=== PATIENT | female | born 1990 | race Caucasian/White ===

== ENCOUNTER 2022-12-20 20:11 | Inpatient (IN) | payer OTHER, SELFPAY ==
--- OUTSIDE RECORDS SUMMARY | 2022-12-20 20:17 | XMS_ITS | Continuity of Care Document ---
Author Name Unknown Organization [facility] Primary [facility] [place] Address [address] [place] [address]- Care Team Providers Care Bander Hand Name Role Phone Opal Iglesias NP Primary Care Physician Encounter [facility] Date(s): 07/20/21 - 08/19/21 [facility] Care [place] [address] [place], [place] [address] Allergies, Adverse Reactions, Alerts No Known Allergies Immunizations Given and Recorded Vaccine Date Status Refusal Reason tetanus/diphtheria/pertussis, acel(Tdap) 06/24/17 Given tetanus/diphtheria/pertussis, acel(Tdap) 10/14/16 Given Not Given Vaccine Date Status Refusal Reason influenza virus vaccine, inactivated 04/24/20 Not Given Patient Refuses Problem List Condition Effective Dates Status Health Status Inform ant Alcoholism(Confirmed) Active Anemia(Confirmed) Active Asthma(Confirmed) Active Chronic low back pain(Confirmed) Active Chronic viral hepatitis C(Confirmed) Active Cocaine abuse(Confirmed) Active Substance induced mood disorder(Confirmed) Active CHRIS (generalized anxiety disorder)(Confirmed) Active Insomnia(Confirmed) Active Marijuana user(Confirmed) Active 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 Opioid use disorder(Confirmed) Active Opioid dependence in remission(Confirmed) Active Opioid dependence on agonist therapy(Confirmed) Active Post-traumatic stress disorder(Confirmed) Active MDD (major depressive disord er), recurrent episode, moderate(Confirmed) Active Tobacco use(Confirmed) Active Hepatitis C(Confirmed) Active Social History Social History Type Response Smoking Status Current every day ankush oker; Type: Cigarettes; Other: 1/2 PPD x 10 yrs; Tobacco use times per day: 10; entered on: 08/09/14 Sex
--- OUTSIDE RECORDS SUMMARY | 2022-12-20 20:17 | XMS_ITS | Continuity of Care Document ---
Author Name Unknown Organization [facility] Address [address] [place] [address]- Care Team Providers Care Gardener Name Role Phone Harris FARAH, Opal Mancini Primary Care Physician [phone] Encounter [facility] Date(s): 05/17/21 - 05/17/[address] [address]- Discharge Disposition: A-D/C Home Attending Physician: Paolo uJarez MD Admitting Physician: Paolo Juarez MD Referring Physician: Not on Staff, Referring MD Allergies, Adverse Reactions, Alerts Substance Reaction Severity Status NKA Active Immunizations Given and Recorded Vaccine Date Status Refusal Reason tetanus/diphtheria/pertussis, acel(Tdap) 06/24/17 Given tetanus/diphtheria/pertussis, acel(Tdap) 10/14/16 Given Not Given Vaccine Date Status Refusal Reason influenza virus vaccine, inactivated 04/24/20 Not Given Patient Refuses Medications levoFLOXacin 500 mg oral tablet 1 tablet = 500 mg, By Mouth, Every 24 hours, for 10 days, # 10 tablet, 0 Refills, Acute 05/27/21 11:20:00 EST, 05/17/21 11:20:00 EST, Tablet, [id number], Partial fill upon patient request if the prescription is for a schedule II opioid drug.,... Start Date: 05/17/21 Stop Date: 05/27/21 Status: Ordered Suboxone 4 mg-1 mg sublingual film 3 film, Sublingual, Daily, for 4 days, dissolve under the tongue, # 12 film, 0 Refills, Acute 05/21/21 11:38:00 EST, 05/17/21 11:38:00 EST, Film, [id number], Partial fill upon patient requestif the prescription is for a schedule II opioid arlene... Start Date: 05/17/21 Stop Date: 05/21/21 Status: Ordered Problem List Condition Effective Dates Status Health Status Inform ant Alcoholism(Confirmed) Active Asthma(Confirmed) Active Chronic viral hepatitis C(Confirmed) Active Cocaine abuse(Confirmed) Active Substance induced mood disorder(Confirmed) Active CHRIS (generalized anxiety disorder)(Confirmed) Active Marijuana user(Confirmed) Active 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 Opioid use disorder(Confirmed) Active Opioid dependence in remission(Confirmed) Active Opioid dependence on agonist therapy(Confirmed) Active Post-traumatic stress disorder(Confirmed) Active MDD (major depressive disord er), recurrent episode, moderate(Confirmed) Active Tobacco abuse(Confirmed) Active Tobacco use(Confirmed) Active Hepatitis C(Confirmed) Active Vital Signs Most recent to oldest [Reference Range]: 1 2 Height 163 cm (05/17/21 12:27 PM) 163 cm (05/17/21 10:13 AM) Weight 57.8 kg (05/17/21 12:27 PM) 57.8 kg (05/17/21 10:13 AM) Oxygen Saturation [94-100 %] 100 % (05/17/21 10:13 AM) Pulse Rate [55-90 bpm] 106 bpm *H* (05/17/21 10:13 AM) Blood Pressure [90-138/55-84 mm Hg] 116/ 69mm Hg (05/17/21 10:13 AM) Respiratory Rate [16-30 br/min] 20 br/mi n (05/17/21 10:13 AM) Temperature [96.8-100.4 DegF] 98.7 DegF (05/17/21 10:13 AM) Mode of Delivery (Oxygen) Room air (05/17/21 10:13 AM) Temperature Route Oral (05/17/21 10:13 AM) Dry Weight 57.8 kg (05/17/21 12:27 PM) 57.8 kg (05/17/21 10:13 AM) Weight Obtained Via Standing scale (05/17/21 10:13 AM) Social History Social History Type Response Smoking Status Current every day ankush gill; Type: Cigarettes; Other: 1/2 PPD x 10 yrs; Tobacco use times per day: 10; entered on: 08/09/14 Sex
--- OUTSIDE RECORDS SUMMARY | 2022-12-20 20:17 | XMS_ITS | Continuity of Care Document ---
Author Name Unknown Organization [facility] Primary Car e [place] Address [address] [place] [address]- Care Team Providers Care Metallurgical Laboratory Assistant Name Role Phone Karri Zhao Primary Care Physician Encounter [facility] NBR [id number] Date(s): 12/06/21 - 01/05/22 [facility] Care [place] [address] [place] [address]- Allergies, Adverse Reactions, Alerts No Known Allergies [...] Type Response Smoking Status Current every day sm oker; Type: Cigarettes; Other: 1/2 PPD x 10 yrs; Tobacco use times per day: 10; entered on: 08/09/14 Sex
--- OUTSIDE RECORDS SUMMARY | 2022-12-20 20:17 | XMS_ITS | Continuity of Care Document ---
Author Name Unknown Organization [facility] Address [address] [place] [address]- Care Team Providers Care Decaler Name Role Phone Harris FARAH, Opal Mancini Primary Care Physician [phone] Encounter [facility] Date(s): 10/17/20 - 10/24/[address] [address] Encounter Diagnosis Vision loss of left eye(Discharge Diagnosis) - 10/17/20 Redness of left eye(Discharge Diagnosis) - 10/17/20 Photophobia, left eye(Discharge Diagnosis) - 10/17/20 Left eye pain(Discharge Diagnosis) - 10/17/20 Attending Physician: Carri Alvares NP Admitting Physician: Carri Alvares NP Allergies, Adverse Reactions, Alerts Substance Reaction Severity Status NKA Active Immunizations Given and Recorded Vaccine Date Status Refusal Reason tetanus/diphtheria/pertussis, acel(Tdap) 06/24/17 Given tetanus/diphtheria/pertussis, acel(Tdap) 10/14/16 Given Not Given Vaccine Date Status Refusal Reason influenza virus vaccine, inactivated 04/24/20 Not Given Patient Refuses Medications ofloxacin 0.3% ophthalmic solution 2 drops, Eye, Left, 4 times a day, for 7 days, # 10 mL, 0 Refills, Acute 10/29/20 7:25:00 EDT, 10/22/20 7:25:00 EDT, [id number], Partial fill upon patient request if the prescription is for aschedule II opioid drug., 2 drops Eye, Left 4 times... Start Date: 10/22/20 Stop Date: 10/29/20 Status: Ordered Suboxone 12 mg-3 mg sublingual film 1 film, Sublingual, Daily, dissolve under the tongue, 0 Refills, Maintenance, 10/22/20 5:56:00 EDT,Film, Partial fill upon patient request if the prescription is for a schedule II opioid drug. Start Date: 10/22/20 Status: Ordered Zoloft 100 mg oral tablet 1 tablet = 100 mg, By Mouth, Daily, 0 Refills, Maintenance, 06/18/19 10:22:00 EST Start Date: 06/18/19 Status: Ordered Problem List Condition Effective Dates Status Health Status Inform ant Alcoholism(Confirmed) Active Asthma(Confirmed) Active Chronic viral hepatitis C(Confirmed) Active Cocaine abuse(Confirmed) Active CHRIS (generalized anxiety disorder)(Confirmed) Active Marijuana user(Confirmed) Active 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 Opioid dependence in remission(Confirmed) Active Opioid dependence on agonist therapy(Confirmed) Active Post-traumatic stress disorder(Confirmed) Active MDD (major depressive disord er), recurrent episode, moderate(Confirmed) Active Tobacco abuse(Confirmed) Active Tobacco use(Confirmed) Active Hepatitis C(Confirmed) Active Diagnosis Diagnosis Type Effective Dates Health Status Cl inical Service Informant Redness of left eye Discharge Diagnosis 10/17/20 Photophobia, left eye Discharge Diagnosis 10/17/20 Left eye pain Discharge Diagnosis 10/17/20 Vision loss of left eye Discharge Diagnosis 10/17/20 Social History Social History Type Response Smoking Status 5-9 cigarettes (betw een 1/4 to 1/2 pack)/day in last 30 days; Tobacco user in household: Yes;Never; Type: Cigarettes; Previous treatment: Nicotine replacement; Interested in cessation: Yes; Number of years: 18; Started at age: 12; entered on: 02/17/20 Sex
--- OUTSIDE RECORDS SUMMARY | 2022-12-20 20:17 | XMS_ITS | Continuity of Care Document ---
Author Name Unknown Organization [facility] Address [address] [place] [address]- Care Team Providers Care Matrix Drier Tender Name Role Phone Opal Iglesias NP Primary Care Physician Encounter [facility] Date(s): 02/11/20 - 03/12/20 [facility] [address] [place] [address]- [facility] Allergies, Adverse Reactions, Alerts Substance Reaction Severity Status NKA Active Immunizations Given and Recorded Vaccine Date Status Refusal Reason tetanus/diphtheria/pertussis, acel(Tdap) 06/24/17 Given tetanus/diphtheria/pertussis, acel(Tdap) 10/14/16 Given Medications Depo-Provera Contraceptive 150 mg/mL intramuscular suspension 1 mL = 150 mg, Intramuscular, Every 3 months, # 1 mL, 1 Refills, Maintenance, 05/31/19 12:31:00 EST, Suspension, [id number], 165, cm, 01/08/19 11:16:00 EDT, Height, 59, kg, 12/22/17 22:55:00 EDT, Dry Weight Start Date: 05/31/19 Status: Ordered Vivitrol Inj = 380 mg, Intramuscular, Every 28 days, 0 Refills, Maintenance, 06/18/19 10:23:00 EST Start Date: 06/18/19 Status: Ordered Zoloft 100 mg oral tablet [...]
--- OUTSIDE RECORDS SUMMARY | 2022-12-20 20:17 | XMS_ITS | Continuity of Care Document ---
Author Name Unknown Organization [facility] [place] Address [address] [place] [address]- Care Team Providers Care Manager Credit Risk Name Role Phone Harris FARAH, Opal Mancini Primary Care Physician [phone] Encounter [facility] NBR [id number] Date(s): 07/18/20 - 08/17/20 [facility] Care [place] [address] [place] [address]- Attending Physician: Angie Kerr Admitting Physician: Angie Kerr Referring Physician: AdmtrAngie Allergies, Adverse Reactions, Alerts Substance Reaction Severity Status NKA Active Immunizations Given and Recorded Vaccine Date Status Refusal Reason tetanus/diphtheria/pertussis, acel(Tdap) 06/24/17 Given tetanus/diphtheria/pertussis, acel(Tdap) 10/14/16 Given Not Given Vaccine Date Status Refusal Reason influenza virus vaccine, inactivated 04/24/20 Not Given Patient Refuses Medications Methadone = 40 mg, By Mouth, Daily, 0 Refills, Maintenance, 06/02/20 18:45:00 EST, Partial fill upon patient request if the prescription is for a schedule II opioid drug. Start Date: 06/02/20 Status: Ordered Zoloft 100 mg oral tablet [...]
--- OUTSIDE RECORDS SUMMARY | 2022-12-20 20:17 | XMS_ITS | Continuity of Care Document ---
Author Name Unknown Organization [facility] Primary [facility] [place] Address [address] [place] [address]- Care Team Providers Care Organic Lab Worker Name Role Phone Harris FARAH, Opal Mancini Primary Care Physician Encounter [facility] NBR [id number] Date(s): 08/17/21 - 11/15/21 [facility] [place] [address] [place], [place] [address] Attending Physician: Cyndee Garcia MD Allergies, Adverse Reactions, Alerts No Known Allergies [...]
--- OUTSIDE RECORDS SUMMARY | 2022-12-20 20:17 | XMS_ITS | Continuity of Care Document ---
Author Name Unknown Organization [facility] Address [address] [place] [address]- Care Team Providers Care Grounds Cleaner Name Role Phone Karri Zhao Primary Care Physician Encounter [facility] Date(s): 12/13/22 - 12/13/[address] [address]- Discharge Disposition: A-D/C Walkout Attending Physician: Amparo Briones MD Admitting Physician: Amparo Briones MD Referring Physician: Not on Staff, Referring MD Allergies, Adverse Reactions, Alerts No Known Allergies Immunizations Given and Recorded Vaccine Date Status Refusal Reason tetanus/diphtheria/pertussis, acel(Tdap) 06/24/17 Given tetanus/diphtheria/pertussis, acel(Tdap) 10/14/16 Given Not Given Vaccine Date Status Refusal Reason influenza virus vaccine, inactivated 04/24/20 Not Given Patient Refuses Medications Adderall 30 mg oral tablet 1 tablet = 30 mg, By Mouth, 2 times a day, # 6 tablet, 0 Refills, Maintenance, 06/28/22 17:07:00 EST, Tablet, [id number], Partial fill upon patient request if the prescription is fora schedule II opioid drug., 1 tablet By Mouth 2 sherly... Start Date: 06/28/22 Status: Ordered Problem List Condition Confirmation Course Effective Dates Status Health St atus Informant Anemia Confirmed Active Asthma Confirmed Active ADD (attention deficit disorder) Confirmed Active Chronic low back pain Confirmed Active Chronic viral hepatitis C Confirmed Active CHRIS (generalized anxiety disorder) Confirmed Active History of alcohol use disorder Confirmed Active History of substance use disorder 1 Confirmed Active Insomnia Confirmed Active Marijuana user Confirmed Active Post-traumatic stress disorder Confirmed Active MDD (major depressive disorder), recurrent episode, moderate Confirmed Active Tobacco use Confirmed Active 1cocaine and opiates in the past Vital Signs Most recent to oldest [Reference Range]: 1 2 Height 166 cm (12/13/22 12:21 PM) Weight 60.7 kg (12/13/22 12:21 PM) Oxygen Saturation [94-100 %] 100 % (12/13/22 12:21 PM) 99 % (12/13/22 12:20 PM) Pulse Rate [55-90 bpm] 70 bpm (12/13/22 12:21 PM) 109 bpm *H* (12/13/22 12:20 PM) Blood Pressure [90-138/55-84 mm Hg] 138/ 77mm Hg (12/13/22 12:21 PM) Respiratory Rate [16-30 br/min] 18 br/mi n (12/13/22 12:21 PM) 16 br/min (12/13/22 12:20 PM) Temperature [96.8-100.4 DegF] 98.4 DegF (12/13/22 12:21 PM) Mode of Delivery (Oxygen) Room air (12/13/22 12:21 PM) Room air (12/13/22 12:20 PM) Temperature Route Temporal (12/13/22 12:21 PM) Dry Weight 60.7 kg (12/13/22 12:21 PM) Social History Social History Type Response Tobacco Use: 4 or less cigar ettes(less than 1/4 pack)/day in last 30 days. Sex Patient Care team information Care Team Personnel Name: Miladis Redmond RN Position: [facility] RN Member Role: Primary Care Nurse Name: Karri Zhao Position: [facility] PCO Associate Professional Member Role: PCP Address: Address: [address] [place] [address] Name: Lilia To RN Position: [facility] RN Member Role: Primary Care Nurse Name: Sonia Bose [place] Position: [facility] RN Member Role: Primary Care Nurse Name: Mechelle Spencer Position: [facility] RN Member Role: Primary Care Nurse Name: Alethea Mayo RN Position: [facility] RN Member Role: Primary Care Nurse Name: Francoise Cadena RN Position: [facility] RN Member Role: Primary Care Nurse Name: Ana Garcia RN Position: [facility] RN Member Role: Primary Care Nurse Name: Betty Roman RN Position: [facility] AMB Nurse Member Role: Primary Care Nurse Name: Lisha Willett RN Position: [facility] RN Member Role: Primary Care Nurse Name: Sandra Sosa RN Position: [facility] RN Member Role: Primary Care Nurse Care Team Related Persons Name: SHONDAASTERN Address: home [address] [place] [address] Name: NABIL ALLEN Address: home [address] [place] [address] Name: SHIKHA HOLBROOK Address: [place] [address] Name: CLAUDE BLACK Address: Address: home [address] [place] [address] Name: AMADOR BLACK Address: home [address] [place] [address] Name: CECILIA NELSON Address: home [address] [place] [address] Name: NONE, GIVEN Address: [place] [address]
--- OUTSIDE RECORDS SUMMARY | 2022-12-20 20:17 | XMS_ITS | Continuity of Care Document ---
Author Name Unknown Organization [facility] Primary [facility] [place] Address [address] [place] [address]- Care Team Providers Care Dye Machine Operator Name Role Phone Opal Iglesias NP Primary Care Physician Encounter [facility] Date(s): 04/30/21 - 05/30/21 [facility] [place] [address] [place], [place] [address] Allergies, Adverse Reactions, Alerts Substance Reaction Severity [...]
--- OUTSIDE RECORDS SUMMARY | 2022-12-20 20:17 | XMS_ITS | Continuity of Care Document ---
Author Name Unknown Organization [facility] Hernan Guzman [employer] [facility] Address [address], [address] [place] [address]- Care Team Providers Care Floor Manager Name Role Phone Karri Zhao Primary Care Physician [phone] Encounter [facility] Date(s): 11/14/22 - 12/14/22 [facility]anmajo [employer] [facility] [address], [address] [place], [place] [address] Allergies, Adverse Reactions, Alerts No Known Allergies [...] 0 Refills, Maintenance, 06/28/22 17:07:00 EST, Tablet, [id number], Partial fill upon patient request if the [...] Active 1cocaine and opiates in the past Social History Social History Type Response Tobacco Use: 4 or less cigar ettes(less than 1/4 pack)/day in last 30 days. Sex Patient Care team information Care Team Personnel Name: Miladis Redmond RN Position: [facility] RN Member Role: Primary Care Nurse Name: Karri Zhao Position: [facility] PCO Associate Professional Member Role: PCP Address: Address: [address] [place] [address]- Name: Lilia To RN Position: [facility] RN Member Role: Primary Care Nurse Name: Sonia Bose [place] Position: [facility] RN Member Role: Primary Care Nurse Name: Mechelle Spencer Position: [facility] RN Member Role: Primary Care Nurse Name: Alethea Mayo RN Position: [facility] RN Member Role: Primary Care Nurse Name: Francoise Cadena RN Position: [facility] RN Member Role: Primary Care Nurse Name: Ana Garcia RN Position: [facility] RN Member Role: Primary Care Nurse Name: Betty Roman RN Position: [facility] AMB Nurse Member Role: Primary Care Nurse Name: Lisha Willett RN Position: [facility] RN Member Role: Primary Care Nurse Name: Sandra Sosa RN Position: [facility] RN Member Role: Primary Care Nurse Care Team Related Persons Name: NABIL MERCHANT Address: home [address], [place] Name: NABIL ALLEN Address: home [address], [place] Name: SHIKHA HOLBROOK Address: [place] [address] Name: CLAUDE BLACK Address: Address: home [address] [place] [id number] Name: AMADOR BLACK Address: home [address] [place] [address] Name: CECILIA NELSON Address: home [address] [place] [address] Name: NONE, [place] Address: [place] [address]
--- OUTSIDE RECORDS SUMMARY | 2022-12-20 20:17 | XMS_ITS | Continuity of Care Document ---
Author Name Unknown Organization [facility] Primary [place] Address [address] [place] [address]- Care Team Providers Care Galvanizer Name Role Phone Opal Iglesias NP Primary Care Physician Encounter [facility] Date(s): 07/11/21 - 08/10/21 [facility] [place] [address] [place], [place] [address] Allergies, Adverse Reactions, Alerts No Known Allergies Immunizations Given and Recorded Vaccine Date Status Refusal Reason tetanus/diphtheria/pertussis, acel(Tdap) 06/24/17 Given tetanus/diphtheria/pertussis, acel(Tdap) 10/14/16 Given Not Given Vaccine Date Status Refusal Reason influenza virus vaccine, inactivated 04/24/20 Not Given Patient Refuses Medications hydrOXYzine hydrochloride 50 mg oral tablet 1 tablet = 50 mg, By Mouth, 4 times a day, PRN for anxiety, # 40 tablet, 0 Refills, Maintenance, 07/24/21 15:02:00 EST, Tablet, Partial fill upon patient request if the prescription is for a scheduleII opioid drug. Start Date: 07/24/21 Status: Ordered Problem List Condition Effective Dates [...]
--- OUTSIDE RECORDS SUMMARY | 2022-12-20 20:17 | XMS_ITS | Continuity of Care Document ---
Author Name Unknown Organization [facility] Address [address] [place] [address]- Care Team Providers Care Poultry Husbandry Worker Name Role Phone Harris FARAH, Opal Mancini Primary Care Physician [phone] Encounter [facility] Date(s): 05/08/20 - 06/07/20 [facility] [address] [place] [address]- Attending Physician: Angie Kerr Admitting Physician: Angie [...]
--- OUTSIDE RECORDS SUMMARY | 2022-12-20 20:17 | XMS_ITS | Continuity of Care Document ---
Author Name Unknown Organization [facility] ter Address [address] [place] [id number]- Care Team Providers Care Overhead Door Technician Name Role Phone Harris FARAH, Opal Mancini Primary Care Physician Encounter [facility] [place] Date(s): 04/22/20 - 05/08/[address] [address] Discharge Disposition: A-D/C Home Attending Physician: Iman Richards MD Admitting Physician: Iman Richards MD Referring Physician: Not on Staff, Referring MD Allergies, Adverse Reactions, Alerts Substance Reaction Severity Status NKA Active Immunizations Given and Recorded Vaccine Date Status Refusal Reason tetanus/diphtheria/pertussis, acel(Tdap) 06/24/17 Given tetanus/diphtheria/pertussis, acel(Tdap) 10/14/16 Given Not Given Vaccine Date Status Refusal Reason influenza virus vaccine, inactivated 04/24/20 Not Given Patient Refuses Medications gabapentin 300 mg oral capsule 300 mg, Capsule, By Mouth, 05/08/20 9:00:00 EST Start Date: 05/08/20 Stop Date: 05/08/20 Status: Completed Methadone Liquid 10 mg, Solution, By Mouth, 05/08/20 9:00:00 EST Start Date: 05/08/20 Stop Date: 05/08/20 Status: Completed Tylenol 325 mg oral tablet 650 mg, Tablet, By Mouth, Every 4 hours, PRN for Pain , Moderate, Routine, 05/08/20 8:02:00 EST Start Date: 05/08/20 Stop Date: 05/08/20 Status: Discontinued Zoloft 100 mg oral tablet 1 tablet [...] Active Tobacco use(Confirmed) Active Hepatitis C(Confirmed) Active Results Radiology Reports * Exam Date Time Procedure Performing Provider Status 05/05/20 9:32 AM UGI, W/KUB Water Soluble Wilfredo , Di na; Auth (Verified) Notes: (UGI, W/KUB Water Soluble) Reason For Exam: Postop Gastric Surgery RESULT: UGI, W/KUB Water Soluble UGI, W/KUB Water Soluble INDICATION: Follow-up status post repair of gastric perforation with omental plug COMPARISON: Multiple priors, the most recent 05/02/2020 FLUOROSCOPY TIME: 0.7 Min Dose Area Product (DAP): 557.3 uGy*m2 TECHNIQUE: Aqueous contrast upper GI examination was performed by Kuldeep Friedman PA-C. Patient studied semiupright and recumbent after oral administration of 100 cc Isovue-300. FINDINGS: Esophagus: Not evaluated on today's focused exam. Stomach: Best appreciated on image 9, at least two punctate foci of contrast appear extraluminally along the proximal lesser curvature, which are significantly improved from the prior study. Otherwise normal contour motility and mucosal appearance with prompt emptying into nondilated duodenum. No gastric outlet obstruction. Duodenum: Normal contour, distensibility and mucosal appearance. No evidence of duodenal ulcer or scarring. The ligament of Treitz is in the normal location. IMPRESSION: Improvement in gastric perforation with only punctate foci of contrast appearing chest outside of the stomach margins on today's study. By undersigning and finalizing the report, the attending radiologist confirms he/she has personallyreviewed and interpreted the images and agrees with the description of the findings. I have personally reviewed the images and I agree with this report. WSN: [id number] Ordering Physician: Cesar White Dictated By: Bautista Jin Dictated Date/Time: 05/05/20 11:10 a Reviewed By: Servando Cisneros MD Signed By: Servando Cisneros MD Signed Date/Time: 05/05/20 11:15 am Transcribed By: ANTOLIN Transcribed Date/Time: 05/05/20 9:38 am * Exam Date Time Procedure Performing Provider Status 05/02/20 10:07 AM UGI, W/KUB Water Soluble Stacie Vang; Auth (Verified) Notes: (UGI, W/KUB Water Soluble) Reason For Exam: Follow-Up RESULT: UGI, W/KUB Water Soluble UGI, W/KUB Water Soluble INDICATION: Follow-up gastric perforation status post omental plug repair COMPARISON: Multiple priors. FLUOROSCOPY TIME: 1.1 Min Dose Area Product (DAP): 1676.7 uGy*m2 TECHNIQUE: Aqueous contrast upper GI examination was performed by Kuldeep Friedman PA-C. Patient drank approximately 100 cc of Isovue-300 and images were obtained semiupright and recumbent. FINDINGS: The previously seen NG tube is no longer present on today's exam. Esophagus: Visualized distal esophagus is normal in contour and mucosal appearance with prompt transit of liquid contrast into the stomach. No evidence of hiatal hernia. No esophageal obstruction. Stomach: Best appreciated on images 5, 6, and 8, a vertically oriented linear trace of contrast is seen measuring extending approximately 3 cm length along the lesser curvature of the proximal stomach body. This contained collection is significantly improved from the previous study. Lateral images 10 and 11 reveal an ovoid displacement of rugal folds consistent with status post omental plug repair. There is otherwise normal contour motility and mucosal appearance with prompt emptying into nondilated duodenum. No gastric outlet obstruction. Duodenum: Normal contour, distensibility and mucosal appearance. No evidence of duodenal ulcer or scarring. The ligament of Treitz is in the normal location. Note: Images 1-8 contain a speckling of extracorporal contrast present on the image intensifier, wiped clean beginning with image 9. IMPRESSION: 1 Significant improvement in contained gastric perforation with only a linear trace of extraluminalcontrast appearing on today's study. 2. Additional expected postoperative changes status post gastrotomy repair with omental plug. By undersigning and finalizing the report, the attending radiologist confirms he/she has personallyreviewed and interpreted the images and agrees with the description of the findings. I have personally reviewed the images and I agree with this report. WSN: [id number] Ordering Physician: Germania Selby Dictated By: Bautista Jin Dictated Date/Time: 05/02/20 10:54 a Reviewed By: Marija Umana MD Signed By: Marija Umana MD Signed Date/Time: 05/02/20 10:59 am Transcribed By: ANTOLIN Transcribed Date/Time: 05/02/20 10:29 am * Exam Date Time Procedure Performing Provider Status 04/28/20 9:25 AM Upper GI W/O KUB Tri Villalobos; Auth (Verified) Notes: (Upper GI W/O KUB) Reason For Exam: Postop Gastric Surgery RESULT: Upper GI W/O KUB Upper GI W/O KUB INDICATION: Status post repair of gastric perforation with contained leak seen on prior study; follow-up COMPARISON: Upper GI 04/24/2020 FLUOROSCOPY TIME: 1.3 Min Dose Area Product (DAP): 640.4 uGy*m2 TECHNIQUE: Aqueous contrast upper GI examination was performed by Kuldeep Friedman PA-C. Approximately 150 cc of Isovue-300 was administered via the patient's NG tube and images obtained recumbently. FINDINGS: Preschool Substitute Teacher: NG tube is seen with distal tip terminating in the gastric body. Staple closures seen. An ovoid focus of air measuring approximately 1 x 2 cm in transverse and cephalocaudal dimension is seen in the area of previously described contained collection. Contrast material is noted in the left and transverse colon. Esophagus: Not evaluated on today's films exam. Stomach: Again seen is extraluminal contrast opacifying a vertically oriented ovoid collection arising from the proximal stomach body along the lesser curvature, which measures roughly 4 x 0.8 cm andhas decreased in size from the previous exam. There is otherwise normal contour motility and mucosal appearance with prompt emptying into nondilated duodenum. No gastric outlet obstruction. Duodenum: Normal contour, distensibility and mucosal appearance. No evidence of duodenal ulcer or scarring. The ligament of Treitz is in the normal location. IMPRESSION: Interim decrease in size of contained gastric perforation. Note: Two-way communication of these findings was made via Cortext with the ordering physician Dr. White, prior to dictation of this report. By undersigning and finalizing the report, the attending radiologist confirms he/she has personallyreviewed and interpreted the images and agrees with the description of the findings. I have personally reviewed the images and I agree with this report. WSN: [id number] Ordering Physician: Cesar White Dictated By: Bautista Jin Dictated Date/Time: 04/28/20 10:47 a Reviewed By: Marija Umana MD Signed By: Marija Umana MD Signed Date/Time: 04/28/20 10:52 am Transcribed By: ANTOLIN Transcribed Date/Time: 04/28/20 9:37 am * Exam Date Time Procedure Performing Provider Status 04/24/20 8:43 PM Chest 2 Views Frontal and Lat Sharon Nicholas; Auth (Verified) Notes: (Chest 2 Views Frontal and Lat) Reason For Exam: Cough RESULT: Chest 2 Views Frontal and Lat Chest 2 Views Frontal and Lat Reason: Cough; Clinical Question(s): Pneumonia COMPARISON: 04/22/2020 FINDINGS: LINES AND TUBES: Enteric tube in good position. Central venous catheter tip in the right atrium. LUNGS AND PLEURA: Small right pleural effusion. Left lung is clear. No pneumothorax. HEART, MEDIASTINUM AND GELA: Heart is normal in size. Normal mediastinal and hilar contour. BONES AND SOFT TISSUES: No acute abnormality. IMPRESSION: Small right pleural effusion. WSN: [id number] Ordering Physician: Germania Selby Dictated By: Salvador Tate MD Dictated Date/Time: 04/24/20 9:28 pm Reviewed By: Salvador Tate MD Signed By: Salvador Tate MD Signed Date/Time: 04/24/20 9:28 pm Transcribed By: ANTOLIN Transcribed Date/Time: 04/24/20 9:26 pm * Exam Date Time Procedure Performing Provider Status 04/24/20 9:51 AM UGI, W/KUB Water Soluble Barbie Recinos; Auth (Verified) Notes: (UGI, W/KUB Water Soluble) Reason For Exam: Postop Gastric Surgery RESULT: UGI, W/KUB Water Soluble UGI, W/KUB Water Soluble INDICATION: Status post repair gastric perforation; Rule out leak COMPARISON: None FLUOROSCOPY TIME: 2.2 Min Dose Area Product (DAP): 885.6 uGy*m2 TECHNIQUE: Aqueous contrast upper GI examination was performed by Kuldeep Friedman PA-C. Approximately 200 cc of Isovue-300 was administered via the patient's NG tube and images obtained recumbently. FINDINGS: NG tube is in place with distal tip terminating in the body. Esophagus: Not evaluated on today's focused exam. Stomach: Extraluminal contrast is seen arising from the proximal stomach body along the lesser curvature to opacify a vertically oriented collection measuring approximately 5 cm in length by 1 cm in width. No free intra-abdominal spillage of contrast is seen. There is otherwise normal contour motility and mucosal appearance with prompt emptying into nondilated duodenum. No gastric outlet obstruction. Duodenum: Normal contour, distensibility and mucosal appearance. No evidence of duodenal ulcer or scarring. The ligament of Treitz is in the normal location. IMPRESSION: Moderate contained gastric perforation without free intra-abdominal spillage. Note: Two-way communication of these findings was made via cortext with the ordering physician Dr. White, prior to dictation of this report. By undersigning and finalizing the report, the attending radiologist confirms he/she has personallyreviewed and interpreted the images and agrees with the description of the findings. I have personally reviewed the images and I agree with this report. WSN: [id number] Ordering Physician: Cesar White Dictated By: Bautista Jin Dictated Date/Time: 04/24/20 11:02 a Reviewed By: Benjamin Fleming MD Signed By: Benjamin Fleming MD Signed Date/Time: 04/24/20 11:07 am Transcribed By: ANTOLIN Transcribed Date/Time: 04/24/20 10:01 am Vital Signs Most recent to oldest [Reference Range]: 1 2 3 4 Height 163 cm (05/07/20 4:21 PM) 163 cm (05/07/20 9:12 AM) 163 cm (05/05/20 12:03 PM) Weight 48.8 kg (05/06/20 6:24 AM) 43.45 kg (05/02/20 6:20 AM) 51.4 kg (04/28/20 6:42 AM) Oxygen Saturation [94-100 %] 98 % (05/08/20 12:00 PM) 99 % (05/07/20 8:00 PM) 100 % (05/07/20 4:21 PM) Pulse Rate [55-90 bpm] 77 bpm (05/08/20 12:00 PM) 88 bpm (05/07/20 8:00 PM) 81 bpm (05/07/20 4:21 PM) Body Mass Index [18.5-24.99] 18.07 *L* (04/23/20 5:53 AM) Blood Pressure [90-138/55-84 mm Hg] 98/53mm Hg (05/08/20 12:00 PM) 95/46mm Hg (05/07/20 8:00 PM) 133/84mm Hg (05/07/20 4:21 PM) Respiratory Rate [16-30 br/min] 18 br/min (05/08/20 12:00 PM) 18 br/min (05/08/20 9:12 AM) 18 br/min (05/08/20 9:12 AM) 18 br/min (05/08/20 9:12 AM) Temperature [96.8-100.4 DegF] 98.0 DegF (05/08/20 12:00 PM) 97.8 DegF (05/07/20 8:00 PM) 97.7 DegF (05/07/20 4:21 PM) Liters per Minute 4 L/min (04/23/20 3:15 AM) 6 L/min (04/23/20 3:00 AM) 6 L/min (04/23/20 2:30 AM) Mode of Delivery (Oxygen) Room air (05/08/20 12:00 PM) Room air (05/07/20 8:00 PM) Room air (05/07/20 4:21 PM) Blood pressure sites Arm, left (05/08/20 12:00 PM) Arm, left (05/07/20 8:00 PM) Arm, left (05/07/20 4:21 PM) Temperature Route Oral (05/08/20 12:00 PM) Oral (05/07/20 8:00 PM) Oral (05/07/20 4:21 PM) Dry Weight 48 kg (04/23/20 5:53 AM) Weight Obtained Via Bed scale (05/06/20 6:24 AM) Bed scale (04/28/20 6:42 AM) Social History Social History Type Response Smoking Status 5-9 cigarettes (betw een 1/4 to 1/2 pack)/day in last 30 days; Tobacco user in household: Yes;Never; Type: Cigarettes; Previous treatment: Nicotine replacement; Interested in cessation: Yes; Number of years: 17; Started at age: 12; entered on: 02/17/20 Sex
--- OUTSIDE RECORDS SUMMARY | 2022-12-20 20:17 | XMS_ITS | Continuity of Care Document ---
Author Name Unknown Organization [facility] Address [address] [place] [address]- Care Team Providers Care Engineering Inspector Name Role Phone Harris FARAH, Opal Mancini Primary Care Physician Encounter [facility] [id number] Date(s): 05/08/20 - 11/06/[address] [address]- Discharge Disposition: A-D/C Home Attending Physician: Iman Richards MD Admitting Physician: Iman Richards MD Referring Physician: Opal Iglesias NP Allergies, Adverse Reactions, Alerts Substance Reaction Severity Status NKA Active Immunizations Given and Recorded Vaccine Date Status Refusal Reason tetanus/diphtheria/pertussis, acel(Tdap) 06/24/17 Given tetanus/diphtheria/pertussis, acel(Tdap) 10/14/16 Given Not Given Vaccine Date Status Refusal Reason influenza virus vaccine, inactivated 04/24/20 Not Given Patient Refuses Medications Suboxone 12 mg-3 mg sublingual film 1 [...]
--- OUTSIDE RECORDS SUMMARY | 2022-12-20 20:17 | XMS_ITS | Continuity of Care Document ---
Author Name Unknown Organization [facility] Address [address] [place] [address]- Care Team Providers Care Loader Engineer Name Role Phone Karri Zhao Primary Care Physician Encounter [facility] Date(s): 06/27/22 - 06/27/[address] [address]- Discharge Disposition: A-D/C Home Attending Physician: Fabienne Ruelas MD Admitting Physician: Fabienne Ruelas MD Referring Physician: Not on Staff, Referring MD Allergies, Adverse Reactions, Alerts No Known Allergies Immunizations Given and Recorded Vaccine Date Status Refusal Reason tetanus/diphtheria/pertussis, acel(Tdap) 06/24/17 Given tetanus/diphtheria/pertussis, acel(Tdap) 10/14/16 Given Not Given Vaccine Date Status Refusal Reason influenza virus vaccine, inactivated 04/24/20 Not Given Patient Refuses Medications Adderall 20 mg oral tablet 2 tablet = 40 mg, By Mouth, Daily in AM, 0 Refills, Maintenance, 01/14/22 14:58:00 EDT, Partial fill upon patient request if the prescription is for a schedule II opioid drug. Start Date: 01/14/22 Status: Ordered Albuterol (Eqv-ProAir HFA) 90 mcg/inh inhalation aerosol 2 puffs, Inhalation, Every 6 hours, # 8.5 Gm, 0 Refills, Maintenance, 03/12/22 13:40:00 EDT, [facility]/pharmacy #[id number], Partial fill upon patient request if the prescription is for a schedule II opioid drug., 2 puffs Inhalation Every 6 hours, 164, cm, ... Start Date: 03/12/22 Status: Ordered baclofen 5 mg oral tablet 1 tablet = 5 mg, By Mouth, 3 times a day, # 90 tablet, 2 Refills, Maintenance, 08/16/21 14:42:00 EDT, Tablet, [id number], Partial fill upon patient request if the prescription is for a schedule II opioid drug., 165, cm, 08/16/21 14:15:00 EDT,... Start Date: 08/16/21 Status: Ordered gabapentin 800 mg oral tablet 1 tablet, By Mouth, 3 times a day, masspat checked, # 270 tablet, 0 Refills, 02/06/22 14:15:00 EDT,[id number], 164, cm, 01/14/22 14:53:00 EDT, Height, 65, kg, 01/14/22 14:53:00 EDT, Dry Weight Start Date: 02/06/22 Status: Ordered hydrOXYzine hydrochloride 50 mg oral tablet 1 tablet = 50 mg, By Mouth, 4 times a day, PRN for anxiety, # 120 tablet, 2 Refills, Maintenance, 08/16/21 14:43:00 EDT, Tablet, [id number], Partial fill upon patient request if the prescription is for a schedule II opioid drug., 165, cm, 2... Start Date: 08/16/21 Status: Ordered ibuprofen 600 mg oral tablet 600 mg, 1, tablet, By Mouth, 4 times a day, # 120 tablet, Refills 1, Tot. Refills 1, Maintenance, 12/07/21 12:47:00 EDT, Route to Pharmacy Electronically, [id number], Partial fill upon patient request if the prescription is for a schedule II o... Start Date: 12/07/21 Status: Ordered melatonin 5 mg oral tablet 1 tablet = 5 mg, By Mouth, Daily at bedtime, PRN for insomnia, # 60 tablet, 1 Refills, Maintenance,08/16/21 14:44:00 EDT, Tablet, [id number], Partial fill upon patient request if the prescription is for a schedule II opioid drug., 165, cm, 03... Start Date: 08/16/21 Status: Ordered sertraline 100 mg oral tablet 1.5 tablet = 150 mg, By Mouth, Daily, ov 08-16-21, # 135 tablet, 1 Refills, Maintenance, 07/09/21 14:23:00 EST, Tablet, [facility]/pharmacy #[id number], Partial fill upon patient request if the prescription is fora schedule II opioid drug., 163, cm, 05/17/21 12:27... Start Date: 07/09/21 Stop Date: 01/05/22 Status: Ordered Suboxone 8 mg-2 mg sublingual film 0 Refills, Maintenance, 04/17/21 9:13:00 EST, Partial fill upon patient request if the prescriptionis for a schedule II opioid drug. 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 Opioid dependence in remission Confirmed Active Post-traumatic stress disorder Confirmed Active MDD (major depressive disorder), recurrent episode, moderate Confirmed Active Tobacco use Confirmed Active Hepatitis C Confirmed Active Vital Signs Most recent to oldest [Reference Range]: 1 Height 163 cm (06/27/22 9:27 PM) Weight 64.5 kg (06/27/22 9:27 PM) Oxygen Saturation [94-100 %] 98 % (06/27/22 9:27 PM) Pulse Rate [55-90 bpm] 60 bpm (06/27/22 9:27 PM) Blood Pressure [90-138/55-84 mm Hg] 143/ 76mm Hg *H* (06/27/22 9:27 PM) Respiratory Rate [16-30 br/min] 20 br/mi n (06/27/22 9:27 PM) Mode of Delivery (Oxygen) Room air (06/27/22 9:27 PM) Temperature Route Temporal (06/27/22 9:27 PM) Dry Weight 64.5 kg (06/27/22 9:27 PM) Weight Obtained Via Patient/family state d (06/27/22 9:27 PM) Dry Weight Obtained Via Patient/family s tated (06/27/22 9:27 PM) Social History Social History Type Response Smoking Status Current every day sm oker; Type: Cigarettes; Other: 1/2 PPD x 10 yrs; Tobacco use times per day: 10; entered on: 08/09/14 Sex Note * Remigio Palafox: PERFORM Event Display: Patient Education Leaflets Authored Date: [id number] Anxiety??Reaction ?? [id number] Anxiety??Reaction Anxiety is the feeling we all get when we think something bad might happen. It is a normal responseto stress. It most often causes only a mild reaction. But it can interfere with daily life when anxiety is more severe. In some cases, you may not know what you???re anxious about. Anxiety seems to have both mental and physical triggers. You may have stress from home and family. Or work and social relationships. Anxiety tends to run in families. This may mean it???s linked to genes. During an anxiety reaction, you may feel: ??? Helpless ??? Nervous ??? Depressed ??? Grouchy Your body may show signs of anxiety in many ways. You may have: ??? Dry mouth ??? Shakiness ??? Dizziness ??? Weakness ??? Trouble breathing ??? Fast breathing ???Chest pressure ??? Sweating ??? Headache ??? Nausea ??? Diarrhea ??? Tiredness ??? Inability to sleep ??? Sexual problems Home care Try to find those things that set off anxiety in your life. They may not be obvious. They may include: ??? Daily hassles of life. This can include traffic jams, missed appointments, or car troubles. ???Major life changes. This means both good changes, such as a new baby or job promotion. This can also mean tough life changes, such as loss of a job or loss of a loved one. ??? Overload. This means feeling that you have too many responsibilities. And that you can't take care of all of them. ??? Feeling helpless. You may feel you don???t have any control or choices. You may feel that your problems can't be solved. Notice how your body reacts to stress. This will help you take action before the stress sets off anxiety. When you can, make changes to reduce the sources of your stress. But stress in life often can't be prevented. It is important to learn how to manage stress to reduce anxiety. There are many proven methods that will reduce your anxiety. These include: ??? Exercise ??? Good nutrition ??? Getting enough sleep ??? Relaxation methods ??? Breathing exercises ??? Visualization ??? Biofeedback ??? Meditation ??? Counseling ??? Medicine For more information about this, talk with your healthcare provider. Or check online or at your local library or bookstore. You'll find many books and audiobooks on this subject. ?? Follow-up care If you feel your anxiety is not getting better with self-help, call your healthcare provider. Or make an appointment with a counselor. You may need short-term counseling or medicine to help you manage anxiety. ?? Call 911 Call 911 if any of the following occur: ??? Trouble breathing ??? Confusion ??? Drowsiness or trouble waking up ??? Fainting ??? Rapid heart rate ??? Seizure ??? New chest pain that becomes more severe, lasts longer, or spreads into your shoulder, arm, neck, jaw, or back Call or text [phone] if you have thoughts of harming yourself or others. You will be connected to trained crisis counselors at the National Suicide Prevention Lifeline. An online chat option is also available at www.suicidepreChibwe.org. You can also call Lifeline at 512-850-NAMP (440-028-5222). Lifeline is free and available 16/12. ?? When to get medical advice Call your healthcare provider right away if any of the following occur: ??? Symptoms that don't improve or get worse, such as feelings of hopelessness or overwhelming sadness ??? Severe headache not eased by rest and mild pain medicine The National Suicide Prevention Lifeline is available at 806-349-RIQS (307-808-5123). The Lifeline is available 16/12 and provides free and confidential support. The Lifeline also has an online chat at www.suicideFlagr.org. ?? Last Reviewed Date: 2021 ?? The [employer]. All rights reserved. This information is not intended as a substitute for professional medical care. Always follow your healthcare professional's instructions. ?? * Remigio Palafox: PERFORM Event Display: Patient Education Leaflets Authored Date: [id number] Naltrexone Injection ?? [id number] Naltrexone Injection Brands: Vivitrol Uses This medicine is used for the following purposes: ??? drug addiction ??? alcohol dependence ?? Instructions This medicine will be given to you at the doctor's office. This medicine is given as an injection into a muscle. This medicine should only be used by a person who has been trained to recognize when and how it should be used. Drug interactions can change how medicines work or increase risk for side effects. Tell your healthcare providers about all medicines taken. Include prescription and [id number] medicines, vitamins, and herbal medicines. Speak with your doctor or pharmacist before starting or stopping any medicine. Keep all appointments for medical exams and tests while on this medicine. ?? Cautions Rarely, this medicine may cause serious injury at the site of injection. Call your doctor right away if you notice any pain, swelling, blisters, sores, lumps under the skin, or scabbing at the injection site. This medicine is associated with a rare, but serious problem of the liver. Speak to your doctor about the early signs of liver problems and the benefits and risks of using this medicine. You may become more sensitive to effects of opioid medicines during or after using this medicine. This can increase risk of serious or fatal overdose. Your ability to stay alert or to react quickly may be impaired by this medicine. Do not drive or operate machinery until you know how this medicine will affect you. Do not drink beverages with alcohol while on this medicine. If possible, avoid using with marijuana or other medicines that can cause dizziness or drowsiness. These include allergy/cold products, muscle relaxers, sleep aids, and pain relievers. Tell the doctor or pharmacist if you are , planning to be , or . Do not breastfeed while on this medicine. This medicine can pass through breast milk to the baby. Contact your doctor immediately if you experience any swelling of your hands, face, lips, eyes, throat or tongue. Always carry an ID card or wear a medical alert bracelet indicating your medical condition. Some patients have serious side effects from this medicine. Ask your pharmacist to show you the information from the Food and Drug Administration (FDA) and discuss it with you. ?? Side Effects The following is a list of some common side effects from this medicine. Please speak with your doctor about what you should do if you experience these or other side effects. ??? agitated feeling or trouble sleeping ??? decreased appetite ??? dizziness or drowsiness ??? lack of energy and tiredness ??? headaches ??? pain, redness, swelling near injection ??? joint or muscle pain ??? nausea ??? runny nose ??? stomach upset or abdominal pain Call your doctor or get medical help right away if you notice any of these more serious side effects: ??? severe abdominal or pelvic pain ??? severe allergic reaction ??? chest pain ??? confusion ??? diarrhea ??? hallucinations (unusual thoughts, seeing or hearing things that are not real) ??? severeor persistent headache ??? signs of liver damage (such as yellowing of eye or skin, dark urine, or unusual tiredness) ??? nervousness ??? shakiness ??? shortness of breath ??? light colored stool ???severe or persistent vomiting A few people may have an allergic reaction to this medicine. Symptoms can include difficulty breathing, skin rash, itching, swelling, or severe dizziness. If you notice any of these symptoms, seek medical help quickly. ?? Extra Please speak with your doctor, nurse, or pharmacist if you have any questions about this medicine. ?? https://Liftopia.Factabase/[email or web address]/fdbpem/897 IMPORTANT NOTE: This document tells you briefly how to take your medicine, but it does not tell youall there is to know about it. Your doctor or pharmacist may give you other documents about your medicine. Please talk to them if you have any questions. Always follow their advice. There is a more complete description of this medicine available in [place]. Scan this code on your smartphone or tablet or use the web address below. You can also ask your pharmacist for a printout. If you have any questions, please ask your pharmacist. The display and use of this drug information is subject to Terms of Use. Copyright(c) 2021 [employer]. ?? The [employer]. All rights reserved. This information is not intended as a substitute for professional medical care. Always follow your healthcare professional's instructions. ?? Patient Care team information Care Team Personnel Name: Miladis Redmond RN Position: S RN Member Role: Primary Care Nurse Name: Karri Zhao Position: [facility] PCO Associate Professional Member Role: PCP Address: Address: [address] [place] [address] [place] [address]- [place] Name: Lilia To RN Position: [facility] RN Member Role: Primary Care Nurse Name: Sonia Guo Position: [facility] RN Member Role: Primary Care Nurse Name: Mechelle Spencer Position: [facility] RN Member Role: Primary Care Nurse Name: Alethea Mayo RN Position: [facility] RN Member Role: Primary Care Nurse Name: Francoise Cadena RN Position: [facility] RN Member Role: Primary Care Nurse Name: Ana Garcia RN Position: [facility] RN Member Role: Primary Care Nurse Name: Betty Roman RN Position: [facility] AMB Nurse Member Role: Primary Care Nurse Name: Lisha Willett RN Position: [facility] RN Member Role: Primary Care Nurse Name: Sandra Sosa RN Position: [facility] RN Member Role: Primary Care Nurse Name: Remigio Palafox Position: [facility] Associate Professional Member Role: ED Physician Ang[place]mith Address: Address: [address] [place] [address] [place] [address]- [place] Name: Mechelle Hayden Position: [facility] ED OA Member Role: Assignment Clerk Name: Maryann Nunez Position: [facility] ED RN W/OE and Tasks Member Role: Patient Care Provider Name: Fabienne Ruelas MD Position: [facility] ED Medicine MD Member Role: Admitting Physician Address: Address: [address] [place] [address] [place], [place] - Care Team Related Persons Name: NABIL MERCHANT Address: home [address] [place] [address] Name: NABIL ALLEN Address: home [address], [place] Name: SHIKHA HOLBROOK Address: [place] [address] Name: CLAUDE BLACK Address: [address] Address: home [address] [place] [id number] Name: AMADOR BLACK Address: home [address], [place] Name: CECILIA NELSON Address: home [address] [place], [place] Name: NONE, [place] Address: [place] [address]
--- OUTSIDE RECORDS SUMMARY | 2022-12-20 20:17 | XMS_ITS | Continuity of Care Document ---
Author Name Unknown Organization [facility] Address [address] [place] [address]- Care Team Providers Care Workers Compensation Claims Examiner Name Role Phone Karri Zhao Primary Care Physician [phone] Encounter [facility] Date(s): 02/05/22 - 03/07/22 [facility] [address] [place], [place] [address] Allergies, Adverse Reactions, Alerts No Known Allergies Immunizations Given and Recorded Vaccine Date Status Refusal Reason tetanus/diphtheria/pertussis, acel(Tdap) 06/24/17 Given tetanus/diphtheria/pertussis, acel(Tdap) 10/14/16 Given Not Given Vaccine Date Status Refusal Reason influenza virus vaccine, inactivated 04/24/20 Not Given Patient Refuses Medications Adderall 20 mg oral tablet 1 tablet = 20 mg, By Mouth, Daily in AM, 0 Refills, Maintenance, 01/14/22 14:58:00 EDT, Partial fill upon patient request if the prescription is for a schedule II opioid drug. Start Date: 01/14/22 Status: Ordered baclofen 5 mg oral tablet 1 tablet = 5 mg, By Mouth, 3 times a day, # 90 tablet, 2 Refills, Maintenance, 08/16/21 14:42:00 EDT, Tablet, [facility]/pharmacy #[id number], Partial fill upon patient request if the prescription is for a schedule II opioid drug., 165, cm, 08/16/21 14:15:00 EDT,... Start Date: 08/16/21 Status: Ordered cloNIDine 0.1 mg oral tablet 1, tablet, By Mouth, 3 times a day, PRN, # 270 tablet, Refills 1, Tot. Refills 1, Maintenance, NEEDED FOR ANXIETY, 07/10/21 15:31:00 EST, Route to Pharmacy Electronically, [id number], 163,cm, 05/17/21 12:27:00 EST, Height, 57.8, kg, ... Start Date: 07/10/21 Status: Ordered gabapentin 800 mg oral tablet [...] 2 Refills, Maintenance, 08/16/21 14:43:00 EDT, Tablet, [facility]/pharmacy #[id number], Partial fill upon patient request if the prescription is for a schedule II opioid drug., 165, cm, 2... Start Date: 08/16/21 Status: Ordered ibuprofen 600 mg oral tablet 600 mg, 1, tablet, By Mouth, 4 times a day, # 120 tablet, Refills 1, Tot. Refills 1, Maintenance, 12/07/21 12:47:00 EDT, Route to Pharmacy Electronically, [facility]/pharmacy #[id number], Partial fill upon patient request if [...] cm, 03... Start Date: 08/16/21 Status: Ordered nicotine 21 mg/24 hr transdermal film, extended release 1 patch, Topically, Daily, # 30 patch, 1 Refills, Maintenance, 08/27/21 9:56:00 EDT, Patch, [id number], Partial fill upon patient request if the prescription is for a schedule II opioid drug., 1 patch Topically Daily, 165, cm, 08/16/21 14:15:0... Start Date: 08/27/21 Status: Ordered olanzapine 5 mg oral tablet 5 mg, 1, tablet, By Mouth, Daily, # 30 tablet, Refills 0, Tot. Refills 0, Maintenance, 08/28/21 17:31:00 EDT, Route to Pharmacy Electronically, [facility]/pharmacy #[id number], Partial fill upon patient request if the prescription is for a schedule II opioid drug.... Start Date: 08/28/21 Status: Ordered sertraline 100 mg oral tablet 1 tablet = 100 mg, By Mouth, Daily, ov 08-16-21, # 90 tablet, 1 Refills, Maintenance, 07/09/21 14:23:00 EST, Tablet, [facility]/pharmacy #[id number], Partial fill upon patient request if the prescription is for a schedule II opioid drug., 163, cm, 05/17/21 12:27:00... Start Date: 07/09/21 Stop Date: 01/05/22 Status: [...] C Confirmed Active Cocaine abuse Confirmed Active Substance induced mood disorder Confirmed Active CHRIS (generalized anxiety disorder) Confirmed Active Insomnia Confirmed Active Marijuana user Confirmed Active Substance abuse in remission Confirmed Active Opioid use disorder Confirmed Active Opioid dependence in remission Confirmed Active Opioid dependence on agonist therapy Confirmed Active Post-traumatic stress disorder Confirmed Active MDD (major depressive disorder), recurrent episode, moderate Confirmed Active Tobacco use Confirmed Active Hepatitis C Confirmed Active Social History Social History Type Response Smoking Status Current every day ankush gill; Type: Cigarettes; Other: 1/2 PPD x 10 yrs; Tobacco use times per day: 10; entered on: 08/09/14 Sex Patient Care team information Personnel Name: Karri Zhao Address: Address: [address] [place] [address] [place], [place] [address]
--- OUTSIDE RECORDS SUMMARY | 2022-12-20 20:17 | XMS_ITS | Continuity of Care Document ---
Author Name Unknown Organization [facility] Address [address] [place] [address]- Care Team Providers Care Coding Clerks Supervisor Name Role Phone Harris FARAH, Opal Mancini Primary Care Physician [phone] Encounter [facility] Date(s): 06/18/21 - 07/18/21 [facility] [place] [address] [place], [place] [address] Allergies, Adverse Reactions, Alerts No [...]
--- OUTSIDE RECORDS SUMMARY | 2022-12-20 20:17 | XMS_ITS | Continuity of Care Document ---
Author Name Unknown Organization [facility] Address [address] [place] [address]- Care Team Providers Care Land Surveying Manager Name Role Phone Opal Iglesias NP Primary Care Physician [phone] Encounter [facility] Date(s): 01/14/21 - 01/14/[address] [address]- Discharge Disposition: A-D/C AMA Attending Physician: Gil Guidry DO Admitting Physician: Gil Guidry DO Referring Physician: Not on Staff, Referring MD Allergies, Adverse Reactions, Alerts Substance Reaction Severity Status NKA Active Immunizations Given and Recorded Vaccine Date Status Refusal Reason tetanus/diphtheria/pertussis, acel(Tdap) 06/24/17 Given tetanus/diphtheria/pertussis, acel(Tdap) 10/14/16 Given Not Given Vaccine Date Status Refusal Reason influenza virus vaccine, inactivated 04/24/20 Not Given Patient Refuses Medications gabapentin 300 mg oral capsule 300 mg, Capsule, By Mouth, Once, STAT, 01/14/21 3:33:00 EDT, Stop date 01/14/21 3:33:00 EDT Start Date: 01/14/21 Stop Date: 01/14/21 Status: Completed Suboxone 12 mg-3 mg sublingual film 1 [...] to oldest [Reference Range]: 1 2 Height 165 cm (01/14/21 3:11 AM) Weight 45.1 kg (01/14/21 3:11 AM) Oxygen Saturation [94-100 %] 100 % (01/14/21 3:11 AM) Pulse Rate [55-90 bpm] 66 bpm (01/14/21 3:11 AM) Blood Pressure [90-138/55-84 mm Hg] 134/ 66mm Hg (01/14/21 3:11 AM) Respiratory Rate [16-30 br/min] 20 br/mi n (01/14/21 3:51 AM) 16 br/min (01/14/21 3:11 AM) Temperature [96.8-100.4 DegF] 97.2 DegF (01/14/21 3:11 AM) Mode of Delivery (Oxygen) Room air (01/14/21 3:11 AM) Blood pressure sites Arm, left (01/14/21 3:11 AM) Temperature Route Temporal (01/14/21 3:11 AM) Dry Weight 45.1 kg (01/14/21 3:11 AM) Weight Obtained Via Standing scale (01/14/21 3:11 AM) Dry Weight Obtained Via Standing scale (01/14/21 3:11 AM) Social History Social History Type Response Smoking Status Current every day ankush gill; Type: Cigarettes; Other: 1/2 PPD x 10 yrs; Tobacco use times per day: 10; entered on: 08/09/14 Sex
--- OUTSIDE RECORDS SUMMARY | 2022-12-20 20:17 | XMS_ITS | Continuity of Care Document ---
Author Name Unknown Organization [facility] Address [address] [place] [address]- Care Team Providers Care Backing In Machine Tender Name Role Phone Opal Iglesias NP Primary Care Physician Encounter [facility] Date(s): 11/12/20 - 11/13/[address] [address]- Discharge Disposition: A-D/C Home Attending Physician: Yandel Lucero MD Admitting Physician: Yandel Lucero MD Referring Physician: Not on Staff, Referring [...] to oldest [Reference Range]: 1 2 Height 175 cm (11/13/20 12:19 AM) 175 cm (11/12/20 10:37 PM) Weight 50 kg (11/13/20 12:19 AM) 50 kg (11/12/20 10:37 PM) Oxygen Saturation [94-100 %] 98 % (11/13/20 12:19 AM) 98 % (11/12/20 10:37 PM) Pulse Rate [55-90 bpm] 79 bpm (11/13/20 12:19 AM) 95 bpm *H* (11/12/20 10:37 PM) Body Mass Index [18.5-24.99] 16.33 *L* (11/13/20 12:19 AM) Blood Pressure [90-138/55-84 mm Hg] 106/ 77mm Hg (11/13/20 12:19 AM) 144/93mm Hg *H* (11/12/20 10:37 PM) Respiratory Rate [16-30 br/min] 17 br/mi n (11/13/20 12:19 AM) 16 br/min (11/12/20 10:37 PM) Mode of Delivery (Oxygen) Room air (11/13/20 12:19 AM) Room air (11/12/20 10:37 PM) Blood pressure sites Arm, left (11/13/20 12:19 AM) Arm, left (11/12/20 10:37 PM) Dry Weight 50 kg (11/13/20 12:19 AM) 50 kg (11/12/20 10:37 PM) Social History Social History Type Response Smoking Status 5-9 cigarettes (betw een 1/4 to 1/2 pack)/day in last 30 days; Tobacco user in household: Yes;Never; Type: Cigarettes; Previous treatment: Nicotine replacement; Interested in cessation: Yes; Number of years: 18; Started at age: 12; entered on: 02/17/20 Sex
--- OUTSIDE RECORDS SUMMARY | 2022-12-20 20:17 | XMS_ITS | Continuity of Care Document ---
Author Name Unknown Organization [facility] [place] Address [address] [place] [address]- Care Team Providers Care Blending Tank Tender Name Role Phone Opal Iglesias NP Primary Care Physician Encounter [facility] NBR [id number] Date(s): 08/24/21 - 09/23/21 [facility] [place] [address] [place], [place] [address] Allergies, Adverse Reactions, Alerts No Known [...]
--- OUTSIDE RECORDS SUMMARY | 2022-12-20 20:17 | XMS_ITS | Continuity of Care Document ---
Author Name Unknown Organization [facility] Address [address] [place] [address]- Care Team Providers Care Coat Feller Name Role Phone Harris FARAH, Opal Mancini Primary Care Physician Encounter [facility] Date(s): 02/18/20 - 03/30/20 [facility] [address] [place], [place] [address] [phone] Attending Physician: Opal Iglesias NP Admitting Physician: Opal Iglesias NP Referring Physician: Opal Iglesias NP Allergies, Adverse [...]
--- OUTSIDE RECORDS SUMMARY | 2022-12-20 20:17 | XMS_ITS | Continuity of Care Document ---
Author Name Unknown Organization [facility] Address [address] [place] [address]- Care Team Providers Care Eyelet Operator Name Role Phone Opal Iglesias NP Primary Care Physician Encounter [facility] Date(s): 04/04/21 - 04/05/[address] [address]- Encounter Diagnosis Polysubstance abuse(Final) - 04/05/21 Discharge Disposition: A-D/C Home Attending Physician: Gil Guidry DO Admitting Physician: Gil Guidry DO Referring Physician: Not on Staff, Referring MD Allergies, Adverse Reactions, Alerts Substance Reaction Severity Status NKA Active Immunizations Given and Recorded Vaccine Date Status Refusal Reason tetanus/diphtheria/pertussis, acel(Tdap) 06/24/17 Given tetanus/diphtheria/pertussis, acel(Tdap) 10/14/16 Given Not Given Vaccine Date Status Refusal Reason influenza virus vaccine, inactivated 04/24/20 Not Given Patient Refuses Medications Ativan 1 mg oral tablet 1 tablet = 1 mg, By Mouth, 3 times a day, PRN for anxiety, 0 Refills, Maintenance, 02/17/21 8:07:00EDT, Tablet, Partial fill upon patient request if the prescription is for a schedule II opioid drug. Start Date: 02/17/21 Status: Ordered cloNIDine 0.1 mg oral tablet 0.1 mg, 1, tablet, By Mouth, 3 times a day, PRN, # 30 tablet, Refills 1, Tot. Refills 1, Maintenance, Anxiety, 02/07/21 9:31:00 EDT, Route to Pharmacy Electronically, [facility]/pharmacy #[id number], Partial fillupon patient request if the prescription is for a s... Start Date: 02/07/21 Stop Date: 02/27/21 Status: Ordered famotidine 20 mg oral tablet 20 mg, 1, tablet, By Mouth, Daily, # 30 tablet, Refills 0, Tot. Refills 0, Maintenance, 02/17/21 9:34:00 EDT, Route to Pharmacy Electronically, [facility]/pharmacy #[id number], Partial fill upon patient request if the prescription is for a schedule II opioid drug.... Start Date: 02/17/21 Status: Ordered gabapentin 400 mg oral capsule 400 mg, By Mouth, 3 times a day, # 42 capsule, Refills 1, Tot. Refills 1, Maintenance, 02/07/21 9:31:00 EDT, Route to Pharmacy Electronically, [facility]/pharmacy #[id number], Partial fill upon patient request ifthe prescription is for a schedule II opioid drug.,... Start Date: 02/07/21 Stop Date: 03/07/21 Status: Ordered sertraline 100 mg oral tablet 1 tablet = 100 mg, By Mouth, Daily, # 30 tablet, 0 Refills, Maintenance, 02/07/21 9:33:00 EDT, Tablet, [facility]/pharmacy #[id number], Partial fill upon patient request if the prescription is for a schedule II opioid drug., 165, cm, 02/07/21 8:18:00 EDT, Height,... Start Date: 02/07/21 Stop Date: 03/09/21 Status: Ordered traZODone 50 mg oral tablet 50 mg, 1, tablet, By Mouth, Daily at bedtime, PRN, sleep, # 30 tablet, Refills 0, Tot. Refills 0, Maintenance, Sleep, 02/07/21 9:32:00 EDT, Route to Pharmacy Electronically, [facility]/pharmacy #[id number], Partial fill upon patient request if the prescription is... Start Date: 02/07/21 Stop Date: 03/09/21 Status: Ordered ZyPREXA 5 mg oral tablet 2.5 mg, 0.5, tablet, By Mouth, 2 times a day, # 14 tablet, Refills 1, Tot. Refills 1, Maintenance, 02/07/21 9:33:00 EDT, Route to Pharmacy Electronically, [facility]/pharmacy #[id number], Partial fill upon patient request if the prescription is for a schedule II o... Start Date: 02/07/21 Stop Date: 03/07/21 Status: Ordered Problem List Condition Effective Dates [...] to oldest [Reference Range]: 1 2 3 Height 163 cm (04/05/21 12:53 AM) 163 cm (04/04/21 11:14 PM) 163 cm (04/04/21 9:05 PM) Weight 49.5 kg (04/04/21 11:14 PM) 49.5 kg (04/04/21 9:05 PM) Oxygen Saturation [94-100 %] 100 % (04/04/21 11:50 PM) 100 % (04/04/21 11:14 PM) 100 % (04/04/21 9:05 PM) Pulse Rate [55-90 bpm] 117 bpm *H* (04/05/21 12:53 AM) 117 bpm *H* (04/04/21 11:50 PM) 129 bpm *H* (04/04/21 11:14 PM) Body Mass Index [18.5-24.99] 18.63 (04/04/21 11:14 PM) Blood Pressure [90-138/55-84 mm Hg] 130/84mm Hg (04/04/21 11:50 PM) 137/93mm Hg (04/04/21 11:14 PM) 132/89mm Hg (04/04/21 9:05 PM) Respiratory Rate [16-30 br/min] 18 br/min (04/04/21 11:50 PM) 17 br/min (04/04/21 11:14 PM) 19 br/min (04/04/21 9:05 PM) Temperature [96.8-100.4 DegF] 98.3 DegF (04/04/21 9:05 PM) Liters per Minute 0 L/min (04/04/21 11:14 PM) Mode of Delivery (Oxygen) Room air (04/04/21 11:50 PM) Room air (04/04/21 11:14 PM) Room air (04/04/21 9:05 PM) Blood pressure sites Arm, right (04/04/21 11:50 PM) Arm, right (04/04/21 11:14 PM) Arm, left (04/04/21 9:05 PM) Temperature Route Oral (04/04/21 9:05 PM) Dry Weight 49.5 kg (04/04/21 11:14 PM) 49.5 kg (04/04/21 9:05 PM) Social History Social History Type Response Smoking Status Current every day ankuhs gill; Type: Cigarettes; Other: 1/2 PPD x 10 yrs; Tobacco use times per day: 10; entered on: 08/09/14 Sex
--- OUTSIDE RECORDS SUMMARY | 2022-12-20 20:17 | XMS_ITS | Continuity of Care Document ---
Author Name Unknown Organization [facility] Address [address] [place] [address]- Care Team Providers Care National Account Director Name Role Phone Karri Zhao Primary Care Physician Encounter [facility] Date(s): 09/03/22 - 10/03/22 [facility] [address] [place], [place] [address] Attending Physician: AdmAngie kowalski Admitting Physician: AdmtrAngie Referring Physician: Admtr, Ar8 Allergies, Adverse Reactions, Alerts No Known Allergies [...] 0 Refills, Maintenance, 06/28/22 17:07:00 EST, Tablet, [facility] #[id number], Partial fill upon patient request if the prescription is fora schedule II opioid drug., 1 tablet By Mouth 2 sherly... Start Date: 06/28/22 Status: Ordered Albuterol (Eqv-ProAir HFA) 90 mcg/inh inhalation aerosol 2 puffs, Inhalation, Every 6 hours, # 8.5 Gm, 0 Refills, Maintenance, 03/12/22 13:40:00 EDT, [facility]/pharmacy #[id number], Partial fill upon patient request if the [...] a schedule II opioid drug., 165, cm, 032... Start Date: 08/16/21 Status: Ordered ibuprofen 600 [...] cm, 03... Start Date: 08/16/21 Status: Ordered Multivitamins with Folic Acid 1 mg oral tablet 1 tablet, By Mouth, Daily, # 90 tablet, 3 Refills, Maintenance, 09/23/22 10:46:00 EDT, Tablet, [facility]/pharmacy #[id number], Partial fill upon patient request if the prescription is for a schedule II opioid drug., 1 tablet By Mouth Daily, 165, cm, 09/22/22 18:0... Start Date: 09/23/22 Status: Ordered sertraline 100 mg oral tablet 1.5 tablet = 150 mg, By Mouth, Daily, ov 08-16-21, # 135 tablet, 1 Refills, Maintenance, 07/09/21 14:23:00 EST, Tablet, [facility]/pharmacy #[id number], Partial fill upon patient request if the prescription is fora schedule II opioid drug., 163, cm, 05/17/21 12:27... Start Date: 07/09/21 Stop Date: 01/05/22 Status: Ordered Suboxone 8 mg-2 mg sublingual film 0 Refills, Maintenance, 04/17/21 9:13:00 EST, Partial fill upon patient request if the prescriptionis for a schedule II opioid drug. Start Date: 04/17/21 Status: Ordered Vivitrol Inj = 380 mg, Intramuscular, Every 28 days, 0 Refills, Maintenance, 09/22/22 16:09:00 EDT, Partial fillupon patient request if the prescription is for a schedule II opioid drug. Start Date: 09/22/22 Status: Ordered Problem List Condition Confirmation Course [...] on: 08/09/14 Sex Patient Care team information Care Team Personnel Name: Miladis Redmond RN Position: [facility] RN Member Role: Primary Care Nurse Name: Karri Zhao Position: [facility] PCO Associate Professional Member Role: PCP Address: Address: [address] [place] [place] [address]- [place] Name: Lilia To RN Position: [facility] RN Member Role: Primary Care Nurse Name: Sonia Guo Position: [facility] RN Member Role: Primary Care Nurse Name: Mechelle Spencer Position: [facility] RN Member Role: Primary Care Nurse Name: Alethea Mayo RN Position: [facility] RN Member Role: Primary Care Nurse Name: Francoise Cadena RN Position: [facility] RN Member Role: Primary Care Nurse Name: Ana Garcia RN Position: [facility] RN Member Role: Primary Care Nurse Name: Betty Roman RN Position: [facility] AMB Nurse Member Role: Primary Care Nurse Name: Lisha Willett RN Position: [facility] RN Member Role: Primary Care Nurse Name: Sandra Sosa RN Position: [facility] RN Member Role: Primary Care Nurse Care Team Related Persons Name: NABIL MERCHANT Address: home [address] [place] [address] Name: ANBIL ALLEN Address: home [address] [place] [address] Name: SHIKHA HOLBROOK Address: [place] [address] Name: CLAUDE BLACK Address: [address] Address: home [address] [place] [address] Name: AMADOR BLACK Address: home [address] [place] [address] Name: CECILIA NELSON Address: home [address] [place] [address] Name: NONE, [place] Address: [place] [address]
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
--- OUTSIDE RECORDS SUMMARY | 2022-12-20 20:17 | XMS_ITS | Continuity of Care Document ---
Author Name Unknown Organization [facility] [place] Address [address] [place] [address]- Care Team Providers Care Medical Facilities Section Director Name Role Phone Opal Iglesias NP Primary Care Physician [id number] Date(s): 08/23/21 - 09/22/21 [facility] [place] [address] [place], [place] [address] Allergies, Adverse Reactions, Alerts No Known Allergies [...]
--- OUTSIDE RECORDS SUMMARY | 2022-12-20 20:17 | XMS_ITS | Continuity of Care Document ---
Author Name Unknown Organization [facility] [place] Address [address] [place] [address]- Care Team Providers Care Cemetery Warden Name Role Phone Opal Iglesias NP Primary Care Physician Encounter [facility] Date(s): 11/02/21 - 12/02/21 [facility] [place] [address] [place], [place] [address] Allergies, Adverse Reactions, Alerts No Known [...]
--- OUTSIDE RECORDS SUMMARY | 2022-12-20 20:18 | XMS_ITS | Continuity of Care Document ---
Author Name Unknown Organization [facility] [place] Address [address] [place] [address]- Care Team Providers Care Ammunition Specialist Name Role Phone Karri Zhao Primary Care Physician Encounter [facility] Date(s): 06/12/22 - 10/10/22 [facility] [place] [address] [place] [address]- Attending Physician: Germania Velázquez MD Allergies, Adverse Reactions, Alerts No Known [...] 0 Refills, Maintenance, 06/28/22 17:07:00 EST, Tablet, [facility] #[id number], Partial fill upon patient request if the prescription is fora schedule II opioid drug., 1 tablet By Mouth 2 sherly... Start Date: 06/28/22 Status: Ordered Albuterol (Eqv-ProAir HFA) 90 mcg/inh inhalation aerosol 2 puffs, Inhalation, Every 6 hours, # 8.5 Gm, 0 Refills, Maintenance, 03/12/22 13:40:00 EDT, [facility]/pharmacy #[id number], Partial fill upon patient request if the [...] 3 Refills, Maintenance, 09/23/22 10:46:00 EDT, Tablet, [facility]/pharmacy #[id number], Partial fill upon patient request if the prescription is for a schedule II opioid drug., 1 tablet By Mouth Daily, 165, cm, 09/22/22 18:0... Start Date: 09/23/22 Status: Ordered sertraline 100 mg oral tablet 1.5 tablet = 150 mg, By Mouth, Daily, ov 08-16-21, # 135 tablet, 1 Refills, Maintenance, 07/09/21 14:23:00 EST, Tablet, [facility]/pharmacy #[id number], Partial fill upon [...] Primary Care Nurse Name: Karri Zhao Position: [facility] PCO Associate Professional Member Role: PCP Address: Address: [address] [place] [address] [place] [address]- [place] Name: Lilia To RN Position: [facility] RN Member Role: Primary Care Nurse Name: Sonia Guo Position: [facility] RN Member Role: Primary Care Nurse Name: Mechelle Spencer Position: [facility] RN Member Role: Primary Care Nurse Name: Alethea Mayo RN Position: [facility] RN Member Role: Primary Care Nurse Name: Francoise Cadena RN Position: [facility] RN Member Role: Primary Care Nurse Name: Ana Garcia RN Position: [facility] RN Member Role: Primary Care Nurse Name: Betty Roman RN Position: [facility] AMB Nurse Member Role: Primary Care Nurse Name: Lisha Willett RN Position: [facility] RN Member Role: Primary Care Nurse Name: Sandra Sosa RN Position: [facility] RN Member Role: Primary Care Nurse Care Team Related Persons Name: NABIL MERCHANT Address: home [address] [place] [address] Name: NABIL ALLEN Address: home [address] [place] [address] Name: SHIKHA HOLBROOK Address: [place] [address] Name: CLAUDE BLACK Address: [address] Address: home [address] [place] [address] Name: AMADOR BLACK Address: home [address] [place] [address] Name: CECILIA NELSON Address: home [address] [place] [address] Name: NONE, GIVEN Address: [facility] [place] [address]
--- OUTSIDE RECORDS SUMMARY | 2022-12-20 20:18 | XMS_ITS | Continuity of Care Document ---
Author Name Unknown Organization [facility] Address [address] [place] [address]- Care Team Providers Care Ore Digger Name Role Phone Norma BECERRA, Nish Pugh Primary Care Physician Encounter [facility] Date(s): 06/18/19 - 06/18/[address] [address]- [place] Discharge Disposition: A-D/C Home Attending Physician: Paolo Juarez MD Admitting Physician: Paolo Juarez MD Referring [...] 1 Refills, Maintenance, 05/31/19 12:31:00 EST, Suspension, [facility]/pharmacy #[id number], 165, cm, 01/08/19 11:16:00 EDT, Height, 59, kg, 12/22/17 22:55:00 EDT, Dry Weight Start Date: 05/31/19 Status: Ordered Ventolin HFA 108 mcg/inh inhalation aerosol with adapter 2 puffs, Inhalation, Every 6 hours, PRN Wheezing/Shortness of Breath, # 1 each, 1 Refills, Maintenance, 07/01/16 9:05:27 Start Date: 07/01/16 Status: Ordered Vivitrol Inj = 380 mg, Intramuscular, Every 28 days, 0 Refills, Maintenance, 06/18/19 10:23:00 EST Start Date: 06/18/19 Status: Ordered Zoloft 100 mg oral tablet 1 tablet = 100 mg, By Mouth, Daily, 0 Refills, Maintenance, 06/18/19 10:22:00 EST Start Date: 06/18/19 Status: Ordered Problem List Condition Effective Dates Status Health Status Inform ant CHRIS (generalized anxiety disorder)(Confirmed) Active 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 Opioid dependence in remission(Confirmed) Active Post-traumatic stress disorder(Confirmed) Active MDD (major depressive disord er), recurrent episode, moderate(Confirmed) Active Tobacco use(Confirmed) Active Hepatitis C(Confirmed) Active Vital Signs Most recent to oldest [Reference Range]: 1 Height 160 cm (06/18/19 10:15 AM) Weight 50.3 kg (06/18/19 10:15 AM) Oxygen Saturation [94-100 %] 99 % (06/18/19 10:15 AM) Pulse Rate [55-90 bpm] 88 bpm (06/18/19 10:15 AM) Blood Pressure [90-138/55-84 mm Hg] 122/ 66mm Hg (06/18/19 10:15 AM) Respiratory Rate [16-30 br/min] 16 br/mi n (06/18/19 10:15 AM) Mode of Delivery (Oxygen) Room air (06/18/19 10:15 AM) Blood pressure sites Arm, right (06/18/19 10:15 AM) Temperature Route Temporal (06/18/19 10:15 AM) Dry Weight 50.3 kg (06/18/19 10:15 AM) Dry Weight Obtained Via Standing scale (06/18/19 10:15 AM) Social History Social History Type Response Smoking Status Former smoker; Other : QUIT 1 WEEK AGO; entered on: 04/15/17 Sex
--- OUTSIDE RECORDS SUMMARY | 2022-12-20 20:18 | XMS_ITS | Continuity of Care Document ---
Author Name Unknown Organization [facility] [place] Address [address] [place] [address]- Care Team Providers Care Lap Cutter Truer Operator Name Role Phone Harris FARAH, Opal Mancini Primary Care Physician Encounter [facility] NBR [id number] Date(s): 09/17/21 - 10/17/21 [facility] [place] [address] [place], [place] [address] Allergies, Adverse Reactions, Alerts No Known [...]
--- OUTSIDE RECORDS SUMMARY | 2022-12-20 20:18 | XMS_ITS | Continuity of Care Document ---
Author Name Unknown Organization [facility] [place] Address [address] [place] [address]- Care Team Providers Care Surveillance Sensor Officer Name Role Phone Harris FARAH, Opal Mancini Primary Care Physician [phone] Encounter [facility] Date(s): 06/14/21 - 07/14/21 [facility] [place] [address] [place], [place] [address] Allergies, Adverse Reactions, Alerts No [...]
--- OUTSIDE RECORDS SUMMARY | 2022-12-20 20:18 | XMS_ITS | Continuity of Care Document ---
Author Name Unknown Organization [facility] Primary [facility] [place] Address [address] [place] [address]- Care Team Providers Care Fuel Cell Systems Engineer Name Role Phone Harris FARAH, Opal Mancini Primary Care Physician Encounter [facility] Date(s): 10/17/20 - 11/18/20 [facility] [place] [address] [place], [place] [address] Attending Physician: Niesha Fishman NP Referring Physician: Opal Iglesias NP Allergies, [...]
--- OUTSIDE RECORDS SUMMARY | 2022-12-20 20:18 | XMS_ITS | Continuity of Care Document ---
Author Name Unknown Organization [facility] Primary [place] [facility] [place] Address [address] [place] [address]- Care Team Providers Care Service Mechanic Name Role Phone Opal Iglesias NP Primary Care Physician Encounter [facility] Date(s): 10/19/20 - 11/18/20 [facility] Care [place] [address] [place], [place] [address] Attending Physician: Angie Kerr Admitting Physician: AdmAngie kowalski Referring Physician: AdmtrAngie Allergies, Adverse Reactions, Alerts [...]
--- OUTSIDE RECORDS SUMMARY | 2022-12-20 20:18 | XMS_ITS | Continuity of Care Document ---
Author Name Unknown Organization [facility] Primary [place] [facility] [place] Address [address] [place] [address]- Care Team Providers Care Technical Sales Representative Name Role Phone Opal Iglesias NP Primary Care Physician [phone] Encounter [facility] Date(s): 04/12/21 - 05/12/21 [facility] Care [place] [address] [place], [place] [address] Allergies, Adverse Reactions, Alerts Substance [...]
--- OUTSIDE RECORDS SUMMARY | 2022-12-20 20:18 | XMS_ITS | Continuity of Care Document ---
Author Name Unknown Organization [facility] Primary [facility] e [place] Address [address] [place] [address]- Care Team Providers Care Bolt Loader Name Role Phone Harris FARAH, Opal Mancini Primary Care Physician [phone] Encounter [facility] Date(s): 04/11/20 - 05/11/20 [facility] Care [address] [address] Attending Physician: Angie Kerr Admitting Physician: Angie Kerr Referring Physician: Angie Kerr Allergies, Adverse Reactions, Alerts Substance Reaction Severity Status NKA Active Immunizations Given and Recorded Vaccine Date Status Refusal Reason tetanus/diphtheria/pertussis, acel(Tdap) 06/24/17 Given tetanus/diphtheria/pertussis, acel(Tdap) 10/14/16 Given Not Given Vaccine Date Status Refusal Reason influenza virus vaccine, inactivated 04/24/20 Not Given Patient Refuses Medications Zoloft 100 mg oral tablet 1 tablet [...] Response Smoking Status 5-9 cigarettes (betw een 05/29 to 1/2 pack)/day in last 30 days; Tobacco user in household: Yes;Never; Type: Cigarettes; Previous treatment: Nicotine replacement; Interested in cessation: Yes; Number of years: 18; Started at age: 12; entered on: 02/17/20 Sex
--- OUTSIDE RECORDS SUMMARY | 2022-12-20 20:18 | XMS_ITS | Continuity of Care Document ---
Author Name Unknown Organization [facility] Address [address] [place] [address]- Care Team Providers Care Gaming Cashier Name Role Phone Opla Iglesias NP Primary Care Physician [phone] Encounter [facility] Date(s): 01/09/21 - 01/09/[address] [address]- Discharge Disposition: A-D/C Walkout Attending Physician: Yandel Lucero MD Admitting Physician: [...] oldest [Reference Range]: 1 Height 163 cm (01/09/21 9:21 AM) Weight 46.3 kg (01/09/21 9:21 AM) Oxygen Saturation [94-100 %] 100 % (01/09/21 9:21 AM) Pulse Rate [55-90 bpm] 104 bpm *H* (01/09/21 9:21 AM) Blood Pressure [90-138/55-84 mm Hg] 135/ 72mm Hg (01/09/21 9:21 AM) Respiratory Rate [16-30 br/min] 18 br/mi n (01/09/21 9:21 AM) Temperature [96.8-100.4 DegF] 98 DegF (01/09/21 9:21 AM) Dry Weight 46.3 kg (01/09/21 9:21 AM) Dry Weight Obtained Via Standing scale (01/09/21 9:21 AM) Social History Social History Type Response Smoking Status 5-9 cigarettes (betw een 1/4 to 1/2 pack)/day in last 30 days; Tobacco user in household: Yes;Never; Type: Cigarettes; Previous treatment: Nicotine replacement; Interested in cessation: Yes; Number of years: 18; Started at age: 12; entered on: 02/17/20 Sex
--- OUTSIDE RECORDS SUMMARY | 2022-12-20 20:18 | XMS_ITS | Continuity of Care Document ---
Author Name Unknown Organization [facility] Address [address] [place] [address]- Care Team Providers Care Aba Tutor Name Role Phone Harris FARAH, Opal Mancini Primary Care Physician [phone] Encounter [facility] Date(s): 10/17/20 - 11/16/[address] [address] Attending Physician: Angie Kerr [...]
--- OUTSIDE RECORDS SUMMARY | 2022-12-20 20:18 | XMS_ITS | Continuity of Care Document ---
Author Name Unknown Organization [facility] [place] Address [address] [place] [address]- Care Team Providers Care Learning And Development Intern Name Role Phone Opal Iglesias NP Primary Care Physician [phone] [id number] Date(s): 10/04/20 - 02/01/21 [facility] [place] [address] [place], [place] [address] Attending Physician: Eduar Tobin MD Referring Physician: Opal Iglesias NP Allergies, [...]
--- OUTSIDE RECORDS SUMMARY | 2022-12-20 20:18 | XMS_ITS | Continuity of Care Document ---
Author Name Unknown Organization [facility] Address [address] [place] [address]- Care Team Providers Care Single Ending Machine Operator Name Role Phone Karri Zhao Primary Care Physician Encounter [facility] Date(s): 06/28/22 - 06/28/[address] [address]- Discharge Disposition: A-D/C Home Attending Physician: Cristhian Henderson MD Admitting Physician: Cristhian Henderson MD Referring Physician: Not on Staff, Referring [...] 0 Refills, Maintenance, 06/28/22 17:07:00 EST, Tablet, [facility] #[id number], Partial fill upon patient request if the prescription is fora schedule II opioid drug., 1 tablet By Mouth 2 sherly... Start Date: 06/28/22 Status: Ordered Albuterol (Eqv-ProAir HFA) 90 mcg/inh inhalation aerosol 2 puffs, Inhalation, Every 6 hours, # 8.5 Gm, 0 Refills, Maintenance, 03/12/22 13:40:00 EDT, [facility]/pharmacy #[id number], Partial fill upon patient request if the prescription is for a schedule II opioid drug., 2 puffs Inhalation Every 6 hours, 164, cm, ... Start Date: 03/12/22 Status: Ordered baclofen 5 mg oral tablet 1 tablet = 5 mg, By Mouth, 3 times a day, # 90 tablet, 2 Refills, Maintenance, 08/16/21 14:42:00 EDT, Tablet, [facility]/pharmacy #[id number], Partial fill upon patient request if [...] 12/07/21 12:47:00 EDT, Route to Pharmacy Electronically, [facility]/pharmacy #[id number], Partial fill upon patient request if [...] 1 Refills, Maintenance, 07/09/21 14:23:00 EST, Tablet, [facility]/pharmacy #[id number], Partial fill upon patient request if the [...] to oldest [Reference Range]: 1 2 Height 162 cm (06/28/22 4:35 PM) 162 cm (06/28/22 4:31 PM) Weight 67.4 kg (06/28/22 4:35 PM) 67.4 kg (06/28/22 4:31 PM) Oxygen Saturation [94-100 %] 98 % (06/28/22 4:31 PM) Pulse Rate [55-90 bpm] 116 bpm *H* (06/28/22 4:31 PM) Body Mass Index [18.5-24.99 kg/m2] 25.68 kg/m2 *H* (06/28/22 4:31 PM) Blood Pressure [90-138/55-84 mm Hg] 143/ 72mm Hg *H* (06/28/22 4:31 PM) Respiratory Rate [16-30 br/min] 20 br/mi n (06/28/22 4:31 PM) Temperature [96.8-100.4 DegF] 97 DegF (06/28/22 4:31 PM) Mode of Delivery (Oxygen) Room air (06/28/22 4:31 PM) Blood pressure sites Arm, left (06/28/22 4:31 PM) Temperature Route Temporal (06/28/22 4:31 PM) Dry Weight 67.4 kg (06/28/22 4:35 PM) 67.4 kg (06/28/22 4:31 PM) Dry Weight Obtained Via Standing scale (06/28/22 4:31 PM) Social History Social History Type Response Smoking Status Current every day sm oker; Type: Cigarettes; Other: 1/2 PPD x 10 yrs; Tobacco use times per day: 10; entered on: 08/09/14 Sex Patient Care team information Care Team Personnel Name: Miladis Redmond RN Position: [facility] RN Member Role: Primary Care Nurse Name: Karri Zhao Position: [facility] PCO Associate Professional Member Role: PCP Address: Address: [address] [place] [address]- Name: Lilia To RN Position: [facility] RN Member Role: Primary Care Nurse Name: Sonia Guo Position: [facility] RN Member Role: Primary Care Nurse Name: Mechelle Spencer Position: [facility] RN Member Role: Primary Care Nurse Name: Alethea Mayo RN Position: [facility] RN Member Role: Primary Care Nurse Name: Francoise Cadena RN Position: [facility] RN Member Role: Primary Care Nurse Name: Ana Garcia RN Position: [facility] RN Member Role: Primary Care Nurse Name: Betty Roman RN Position: [facility] AMB Nurse Member Role: Primary Care Nurse Name: Lisha Willett RN Position: [facility] RN Member Role: Primary Care Nurse Name: Sandra Sosa RN Position: [facility] RN Member Role: Primary Care Nurse Name: Cristhian Henderson MD Position: [facility] ED Medicine MD Member Role: Admitting Physician Address: Address: [address] [place] [address] [place] [address]- [place] Name: Angel Luis Mendez RN Position: [facility] ED RN W/OE and Tasks Member Role: Patient Care Provider Care Team Related Persons Name: NABIL MERCHANT Address: home [address] [place] [address] Name: NABIL ALLEN Address: home [address] [place] [address] Name: SHIKHA HOLBROOK Address: home [place] [facility] [address] Name: CLAUDE BLACK Address: [address] Address: home [address] [place] [address] Name: AMADOR BLACK Address: home [address] [place] [address] Name: CECILIA NELSON Address: home [address] [place] [address] Name: NONE, GIVEN Address: [place] [address]
--- OUTSIDE RECORDS SUMMARY | 2022-12-20 20:18 | XMS_ITS | Continuity of Care Document ---
Author Name Unknown Organization [facility] Address [address] [place] [address]- Care Team Providers Care Cloth Presser Name Role Phone Opal Iglesias NP Primary Care Physician [phone] Encounter [facility] Date(s): 10/22/20 - 10/22/20 [place] [address] [place] [address]- Discharge Disposition: A-D/C Home Attending Physician: Gil [...] Acute 10/29/20 7:25:00 EDT, 10/22/20 7:25:00 EDT, [facility]/pharmacy #[id number], Partial fill upon patient [...] [Reference Range]: 1 2 Height 165 cm (10/22/20 5:48 AM) Weight 50 kg (10/22/20 5:48 AM) Oxygen Saturation [94-100 %] 99 % (10/22/20 7:19 AM) 98 % (10/22/20 5:48 AM) Pulse Rate [55-90 bpm] 71 bpm (10/22/20 7:19 AM) 65 bpm (10/22/20 5:48 AM) Blood Pressure [90-138/55-84 mm Hg] 112/ 68mm Hg (10/22/20 7:19 AM) 116/78mm Hg (10/22/20 5:48 AM) Respiratory Rate [16-30 br/min] 18 br/mi n (10/22/20 7:19 AM) 18 br/min (10/22/20 5:48 AM) Temperature [96.8-100.4 DegF] 97.3 DegF (10/22/20 7:19 AM) 98.6 DegF (10/22/20 5:48 AM) Mode of Delivery (Oxygen) Room air (10/22/20 5:48 AM) Blood pressure sites Arm, left (10/22/20 5:48 AM) Temperature Route Oral (10/22/20 5:48 AM) Dry Weight 50 kg (10/22/20 5:48 AM) Weight Obtained Via Patient/family state d (10/22/20 5:48 AM) Dry Weight Obtained Via Patient/family s tated (10/22/20 5:48 AM) Social History Social History Type Response Smoking Status 5-9 cigarettes (betw een 1/4 to 1/2 pack)/day in last 30 days; Tobacco user in household: Yes;Never; Type: Cigarettes; Previous treatment: Nicotine replacement; Interested in cessation: Yes; Number of years: 18; Started at age: 12; entered on: 02/17/20 Sex
--- OUTSIDE RECORDS SUMMARY | 2022-12-20 20:18 | XMS_ITS | Continuity of Care Document ---
Author Name Unknown Organization [facility] Address [address] [place] [address]- Care Team Providers Care Search Engine Optimization Specialist Name Role Phone Karri Zhao Primary Care Physician [phone] [id number] Date(s): 01/14/22 - 01/14/[address] [address]- Discharge Disposition: A-D/C Home Attending Physician: Fabienne [...] opioid drug. Start Date: 01/14/22 Status: Ordered Problem List Condition Effective Dates [...] to oldest [Reference Range]: 1 2 Height 164 cm (01/14/22 2:53 PM) 164 cm (01/14/22 2:49 PM) Weight 65 kg (01/14/22 2:53 PM) 65 kg (01/14/22 2:49 PM) Oxygen Saturation [94-100 %] 99 % (01/14/22 2:49 PM) Pulse Rate [55-90 bpm] 91 bpm *H* (01/14/22 2:49 PM) Body Mass Index [18.5-24.99] 24.17 (01/14/22 2:49 PM) Blood Pressure [90-138/55-84 mm Hg] 144/ 84mm Hg *H* (01/14/22 2:49 PM) Respiratory Rate [16-30 br/min] 18 br/mi n (01/14/22 2:49 PM) Temperature [96.8-100.4 DegF] 98 DegF (01/14/22 2:49 PM) Dry Weight 65 kg (01/14/22 2:53 PM) 65 kg (01/14/22 2:49 PM) Social History Social History Type Response Smoking Status Current every day ankush gill; Type: Cigarettes; Other: 1/2 PPD x 10 yrs; Tobacco use times per day: 10; entered on: 08/09/14 Sex
--- OUTSIDE RECORDS SUMMARY | 2022-12-20 20:18 | XMS_ITS | Continuity of Care Document ---
Author Name Unknown Organization [facility] Address [address] [place] [address]- Care Team Providers Care Manager Convention Name Role Phone Karri Zhao Primary Care Physician Encounter [facility] Date(s): 06/27/22 - 07/27/22 [facility] [address] [place] [address]- Attending Physician: Angie Kerr Admitting Physician: AdmtrAngie Referring Physician: Admtr, Ar8 [...] 0 Refills, Maintenance, 06/28/22 17:07:00 EST, Tablet, [facility] #[id number], Partial fill upon patient request if the prescription is fora schedule II opioid drug., 1 tablet By Mouth 2 sherly... Start Date: 06/28/22 Status: Ordered Albuterol (Eqv-ProAir HFA) 90 mcg/inh inhalation aerosol 2 puffs, Inhalation, Every 6 hours, # 8.5 Gm, 0 Refills, Maintenance, 03/12/22 13:40:00 EDT, [facility]/pharmacy #[id number], Partial fill upon patient request if the [...] 1 Refills, Maintenance, 07/09/21 14:23:00 EST, Tablet, [id number], Partial fill upon [...] Type Response Smoking Status Current every day oker; Type: Cigarettes; Other: 1/2 PPD x 10 yrs; Tobacco use times per day: 10; entered on: 08/09/14 Sex Patient Care team information Care Team Personnel Name: Miladis Redmond RN Position: [facility] RN Member Role: Primary Care Nurse Name: Karri Zhao Position: [facility] PCO Associate Professional Member Role: PCP Address: Address: [address] [place] [address] Name: Lilia To RN Position: [facility] RN Member Role: Primary Care Nurse Name: Sonia Guo Position: [facility] RN Member Role: Primary Care Nurse Name: Mechelle Spencer Position: [facility] RN Member Role: Primary Care Nurse Name: Alethea Mayo RN Position: [facility] RN Member Role: Primary Care Nurse Name: Francoise Cadena RN Position: [facility] RN Member Role: Primary Care Nurse Name: Ana Garcia RN Position: [facility] RN Member Role: Primary Care Nurse Name: Betty Roman RN Position: [facility] AMB Nurse Member Role: Primary Care Nurse Name: Lisha Willett RN Position: [facility] RN Member Role: Primary Care Nurse Name: Sandra Sosa RN Position: [facility] RN Member Role: Primary Care Nurse Care Team Related Persons Name: NABIL MERCHANT Address: home [address] [place], [place] Name: NABIL ALLEN Address: home [address] [place] [address] Name: SHIKHA HOLBROOK Address: [place] [address] Name: CLAUDE BLACK Address: Address: home [address] [place] [address] Name: AMADOR BLACK Address: home [address] [place] [address] Name: CECILIA NELSON Address: home [address] [place] [address] Name: NONE, GIVEN Address: home [facility] [place] [address]
--- OUTSIDE RECORDS SUMMARY | 2022-12-20 20:18 | XMS_ITS | Continuity of Care Document ---
Author Name Unknown Organization [facility] [place] Address [address] [place] [address]- Care Team Providers Care Asset Coordinator Name Role Phone Opal Iglesias NP Primary Care Physician Encounter [facility] Date(s): 10/13/20 - 11/12/20 [facility] [place] [address] [place] [address]- Allergies, Adverse Reactions, Alerts Substance Reaction Severity [...]
--- OUTSIDE RECORDS SUMMARY | 2022-12-20 20:18 | XMS_ITS | Continuity of Care Document ---
Author Name Unknown Organization [facility] [place] Address [address] [place] [address]- Care Team Providers Care Research Leader Name Role Phone Karri Zhao Primary Care Physician Encounter [facility] Date(s): 06/05/22 - 10/03/22 [facility] [place] [address] [place], [place] [address] Attending Physician: Eduar Tobin MD Referring Physician: Karri Zhao Allergies, Adverse Reactions, Alerts No Known Allergies [...] 0 Refills, Maintenance, 06/28/22 17:07:00 EST, Tablet, [facility] #[id number], Partial fill upon patient request if the prescription is fora schedule II opioid drug., 1 tablet By Mouth 2 sherly... Start Date: 06/28/22 Status: Ordered Albuterol (Eqv-ProAir HFA) 90 mcg/inh inhalation aerosol 2 puffs, Inhalation, Every 6 hours, # 8.5 Gm, 0 Refills, Maintenance, 03/12/22 13:40:00 EDT, [facility]/pharmacy #[id number], Partial fill upon patient request if the [...] 3 Refills, Maintenance, 09/23/22 10:46:00 EDT, Tablet, [facility]/pharmacy #[id number], Partial fill upon patient request if the prescription is for a schedule II opioid drug., 1 tablet By Mouth Daily, 165, cm, 09/22/22 18:0... Start Date: 09/23/22 Status: Ordered sertraline 100 mg oral tablet 1.5 tablet = 150 mg, By Mouth, Daily, ov 08-16-21, # 135 tablet, 1 Refills, Maintenance, 07/09/21 14:23:00 EST, Tablet, [facility]/pharmacy #[id number], Partial fill upon patient request if [...] Team Personnel Name: Miladis Redmond RN Position: [facility] RN Member Role: Primary Care Nurse Name: Karri Zhao Position: [facility] PCO Associate Professional Member Role: PCP Address: Address: [address] [place] [address] [place] [address]- [place] Name: Lilia To RN Position: [facility] RN Member Role: Primary Care Nurse Name: Sonia Guo Position: [facility] RN Member Role: Primary Care Nurse Name: Mechelle Spencer Position: [facility] RN Member Role: Primary Care Nurse Name: Alethea Mayo RN Position: [facility] RN Member Role: Primary Care Nurse Name: Francoise Cadena RN Position: [facility] RN Member Role: Primary Care Nurse Name: Ana Garcia RN Position: [facility] RN Member Role: Primary Care Nurse Name: Betty Rmoan RN Position: [facility] AMB Nurse Member Role: Primary Care Nurse Name: Lisha Willett RN Position: [facility] RN Member Role: Primary Care Nurse Name: Sandra Sosa RN Position: [facility] RN Member Role: Primary Care Nurse Care Team Related Persons Name: NABIL MERCHANT Address: home [address] [place] [address] Name: NABIL ALLEN Address: home [address] [place], [place] Name: SHIKHA HOLBROOK Address: [place] [address] Name: CLAUDE BLACK Address: [address] Address: home [address] [place] [address] Name: AMADOR BLACK Address: home [address] [place] [address] Name: CECILIA NELSON Address: home [address] [place], [place] Name: NONE, GIVEN Address: [place] [address]
--- OUTSIDE RECORDS SUMMARY | 2022-12-20 20:18 | XMS_ITS | Continuity of Care Document ---
Author Name Unknown Organization [facility] Address [address] [place] [address]- Care Team Providers Care Senior Quality Technician Name Role Phone Opal Iglesias NP Primary Care Physician [phone] Encounter [facility] Date(s): 09/29/21 - 09/29/[address] [address]- Discharge Disposition: A-D/C Home Attending Physician: Paolo [...] Refuses Medications gabapentin 300 mg oral capsule 600 mg, Capsule, By Mouth, Once, Routine, 09/29/21 20:00:00 EDT, Stop date 09/29/21 20:00:00 EDT Start Date: 09/29/21 Stop Date: 09/29/21 Status: Completed Problem List Condition Effective Dates Status Health [...] oldest [Reference Range]: 1 2 3 Height 160 cm (09/29/21 7:22 PM) 160 cm (09/29/21 1:40 PM) Weight 66 kg (09/29/21:22 PM) 66 kg (09/29/21 1:40 PM) Oxygen Saturation [94-100 %] 99 % (09/29/21 7:22 PM) 98 % (09/29/21 4:31 PM) 99 % (09/29/21 1:32 PM) Pulse Rate [55-90 bpm] 70 bpm (09/29/21: PM) 108 bpm *H* (09/29/21 4:31 PM) 128 bpm *H* (09/29/21 1:32 PM) Body Mass Index [18.5-24.99] 25.78 *H* (09/29/21: PM) Blood Pressure [90-138/55-84 mm Hg] 138/70mm Hg (09/29/21 7:22 PM) 124/72mm Hg (09/29/21 4:31 PM) 101/61mm Hg (09/29/21 1:32 PM) Respiratory Rate [16-30 br/min] 20 br/min (09/29/21 7:39 PM) 19 br/min (09/29/21 7:22 PM) 16 br/min (09/29/21 4:31 PM) Temperature [96.8-100.4 DegF] 97.9 DegF (09/29/21 7:22 PM) 97.2 DegF (09/29/21 4:31 PM) 98.1 DegF (09/29/21 1:32 PM) Mode of Delivery (Oxygen) Room air (09/29/21 7:22 PM) Room air (09/29/21 4:31 PM) Room air (09/29/21 1:32 PM) Blood pressure sites Arm, left (09/29/21 7:22 PM) Arm, left (09/29/21 4:31 PM) Arm, right (09/29/21 1:32 PM) Temperature Route Temporal (09/29/21 7:22 PM) Temporal (09/29/21 4:31 PM) Temporal (09/29/21 1:32 PM) Dry Weight 66 kg (09/29/21 7:22 PM) 66 kg (09/29/21 1:40 PM) Weight Obtained Via stated (09/29/21 1:40 PM) Social History Social History Type Response Smoking Status Current every day ankush gill; Type: Cigarettes; Other: 1/2 PPD x 10 yrs; Tobacco use times per day: 10; entered on: 08/09/14 Sex
--- OUTSIDE RECORDS SUMMARY | 2022-12-20 20:18 | XMS_ITS | Continuity of Care Document ---
Author Name Unknown Organization [facility] [place] Address [address] [place] [address]- Care Team Providers Care Box Icer Name Role Phone Harris FARAH, Opal Mancini Primary Care Physician Encounter [facility] Date(s): 02/18/20 - 03/19/20 [facility] [place] [address] [place] [address] Allergies, Adverse Reactions, Alerts Substance Reaction Severity Status NKA Active Immunizations Given and Recorded Vaccine Date Status Refusal Reason tetanus/diphtheria/pertussis, acel(Tdap) 06/24/17 Given tetanus/diphtheria/pertussis, acel(Tdap) 10/14/16 Given Medications Depo-Provera Contraceptive 150 mg/mL intramuscular suspension 1 mL = 150 mg, Intramuscular, Every 3 months, # 1 mL, 1 Refills, Maintenance, 05/31/19 12:31:00 EST, Suspension, [facility]/pharmacy #[id number], 165, cm, 01/08/19 11:16:00 EDT, Height, [...]
--- OUTSIDE RECORDS SUMMARY | 2022-12-20 20:18 | XMS_ITS | Continuity of Care Document ---
Author Name Unknown Organization [facility] [address] [place] Address [address] [place] [address]- Care Team Providers Care [facility] Name Role Phone Karri Zhao Primary Care Physician [phone] Encounter [facility] Date(s): 09/10/22 - 10/10/22 [facility] [place] [address], [place] [address] Attending Physician: AdmAngie kowalski Admitting Physician: AdmtrAngie [...] 0 Refills, Maintenance, 06/28/22 17:07:00 EST, Tablet, [email or web address] #[id number], Partial fill upon patient request if the prescription is fora schedule II opioid drug., 1 tablet By Mouth 2 sherly... Start Date: 06/28/22 Status: Ordered Albuterol (Eqv-ProAir HFA) 90 mcg/inh inhalation aerosol 2 puffs, Inhalation, Every 6 hours, # 8.5 Gm, 0 Refills, Maintenance, 03/12/22 13:40:00 EDT, [facility]/pharmacy #[id number], Partial fill upon patient request if the [...] 3 Refills, Maintenance, 09/23/22 10:46:00 EDT, Tablet, [facility]/pharmacy #[id number], Partial fill upon patient request if the prescription is for a schedule II opioid drug., 1 tablet By Mouth Daily, 165, cm, 09/22/22 18:0... Start Date: 09/23/22 Status: Ordered sertraline 100 mg oral tablet 1.5 tablet = 150 mg, By Mouth, Daily, ov 08-16-21, # 135 tablet, 1 Refills, Maintenance, 07/09/21 14:23:00 EST, Tablet, [facility]/pharmacy #[id number], Partial fill upon patient request [...] Team Personnel Name: Miladis Redmond RN Position: [facility] RN Member Role: Primary Care Nurse Name: Karri Zhao Position: [facility] PCO Associate Professional Member Role: PCP Address: Address: [address] [facility] [place] [address]- [place] Name: Lilia To RN Position: [facility] RN Member Role: Primary Care Nurse Name: Sonia Guo Position: [facility] RN Member Role: Primary Care Nurse Name: Mechelle Spencer Position: [facility] RN Member Role: Primary Care Nurse Name: Alethea Mayo RN Position: [facility] RN Member Role: Primary Care Nurse Name: Francoise Cadena RN Position: [facility] RN Member Role: Primary Care Nurse Name: Ana Garcia RN Position: [facility] RN Member Role: Primary Care Nurse Name: Betty Roman RN Position: [facility] AMB Nurse Member Role: Primary Care Nurse Name: Lisha Willett RN Position: [facility] RN Member Role: Primary Care Nurse Name: Sandra Sosa RN Position: [facility] RN Member Role: Primary Care Nurse Care Team Related Persons Name: NABIL MRECHANT Address: home [address] [place] [address] Name: NABIL ALLEN Address: home [address] [place], [place] Name: SHIKHA HOLBROOK Address: [place] [address] Name: CLAUDE BLACK Address: [address] Address: home [address] [place] [address] Name: AMADOR BLACK Address: home [address] [place] [address] Name: CECILIA NELSON Address: home [address] [place] [address] Name: NONE, GIVEN Address: [place] [address]
--- OUTSIDE RECORDS SUMMARY | 2022-12-20 20:18 | XMS_ITS | Continuity of Care Document ---
Author Name Unknown Organization [facility] Address [address] [place] [address]- Care Team Providers Care Rn Visiting Name Role Phone Karri Zhao Primary Care Physician Encounter [facility] Date(s): 09/22/22 - 09/22/[address] [address]- Discharge Disposition: A-D/C Home Attending Physician: Jerry Urias MD Admitting Physician: Jerry Urias MD Referring Physician: Not on Staff, Referring [...] 0 Refills, Maintenance, 06/28/22 17:07:00 EST, Tablet, [facility] #[id number], Partial fill upon patient request if the prescription is fora schedule II opioid drug., 1 tablet By Mouth 2 sherly... Start Date: 06/28/22 Status: Ordered Albuterol (Eqv-ProAir HFA) 90 mcg/inh inhalation aerosol 2 puffs, Inhalation, Every 6 hours, # 8.5 Gm, 0 Refills, Maintenance, 03/12/22 13:40:00 EDT, [facility]/pharmacy #[id number], Partial fill upon patient request if the prescription is for a schedule II opioid drug., 2 puffs Inhalation Every 6 hours, 164, cm, ... Start Date: 03/12/22 Status: Ordered baclofen 5 mg oral tablet 1 tablet = 5 mg, By Mouth, 3 times a day, # 90 tablet, 2 Refills, Maintenance, 08/16/21 14:42:00 EDT, Tablet, [facility]/pharmacy #[id number], Partial fill upon patient request if the prescription is for a schedule II opioid drug., 165, cm, 08/16/21 14:15:00 EDT,... Start Date: 08/16/21 Status: Ordered gabapentin 400 mg oral capsule 800 mg, Capsule, By Mouth, Once, Routine, 09/22/22 18:00:00 EDT, Stop date 09/22/22 18:00:00 EDT Start Date: 09/22/22 Stop Date: 09/22/22 Status: Completed gabapentin 800 mg oral tablet 1 tablet, [...] a schedule II opioid drug., 165, cm, 07/25... Start Date: 08/16/21 Status: Ordered ibuprofen 600 [...] tablet, 1 Refills, Maintenance,08/16/21 14:44:00 EDT, Tablet, [facility]/pharmacy #[id number], Partial fill upon patient request if the prescription is for a schedule II opioid drug., 165, cm, 03... Start Date: 08/16/21 Status: Ordered sertraline 100 mg oral tablet 1.5 tablet = 150 mg, By Mouth, Daily, ov 08-16-21, # 135 tablet, 1 Refills, Maintenance, 07/09/21 14:23:00 EST, Tablet, [facility]/pharmacy #[id number], Partial fill upon [...] oldest [Reference Range]: 1 2 3 Height 165 cm (09/22/22 6:03 PM) 165 cm (09/22/22 4:06 PM) 165 cm (09/22/22 4:05 PM) Weight 62.7 kg (09/22/22 6:03 PM) 62.7 kg (09/22/22 4:06 PM) Oxygen Saturation [94-100 %] 100 % (09/22/22 6:03 PM) 97 % (09/22/22 4:05 PM) Pulse Rate [55-90 bpm] 88 bpm (09/22/22 6:03 PM) 112 bpm *H* (09/22/22 4:05 PM) Body Mass Index [18.5-24.99 kg/m2] 23.03 kg/m2 (09/22/22 6:03 PM) Blood Pressure [90-138/55-84 mm Hg] 135/82mm Hg (09/22/22 6:03 PM) 112/78mm Hg (09/22/22 4:06 PM) Respiratory Rate [16-30 br/min] 18 br/min (09/22/22 6:03 PM) 16 br/min (09/22/22 5:38 PM) 18 br/min (09/22/22 4:05 PM) Temperature [96.8-100.4 DegF] 97.5 DegF (09/22/22 6:03 PM) 98.2 DegF (09/22/22 4:06 PM) Mode of Delivery (Oxygen) Room air (09/22/22 6:03 PM) Room air (09/22/22 4:05 PM) Blood pressure sites Arm, left (09/22/22 6:03 PM) Temperature Route Temporal (09/22/22 6:03 PM) Dry Weight 62.7 kg (09/22/22 6:03 PM) 62.7 kg (09/22/22 4:06 PM) Social History Social History Type Response Smoking Status Current every day ankush gill; Type: Cigarettes; Other: 1/2 PPD x 10 yrs; Tobacco use times per day: 10; entered on: 08/09/14 Sex Note * Jerry Urias MD: PERFORM Event Display: Patient Education Leaflets Authored Date: [id number] Abdominal Pain and Early ?? [id number] Abdominal Pain and Early The tests you had show that you're . But the exact cause of your pain isn???t clear. Some pain and bleeding are common early in . Often they stop, and you can go on to have a normal and baby. Other times the pain or bleeding can be signs of a??miscarriage??or??ectopic . An ectopic is a very serious problem. At this time, it's unclear if your will continue normally, if you'll have a miscarriage, or if you could have an ectopic pregnan cy. Below is some information about this. Miscarriage At this time, it's not known if you'll have a miscarriage, or if things will clear up and your will continue normally. This is an emotionally difficult time. But??it's important to understand that miscarriages are common. About 1 or 2 out of every [address] Some end even before a person knows they're . This happens for many reasons. Often the cause is never found. But it???s important that you know it's not your fault. It didn???t happen because you did anything wrong. Having sex or exercising doesn't cause a miscarriage. These activities are usually safe unless you have pain or bleeding. Or unless your healthcare provider tells you to stop. Even minor falls won???t cause a miscarriage. Miscarriages happen because things weren't developing as they were supposed to. No medicine can prevent a miscarriage. ?? Ectopic In a normal , the fertilized egg attaches to the wall of the uterus. In an ectopic or tubal , the fertilized egg attaches outside the uterus, usually in the fallopian tube. In very rare cases, the egg attaches to an ovary or somewhere else in the belly (abdomen). An ectopic is much less common than a miscarriage. But it's very serious. The baby can't survive. And as itgrows it can burst (rupture) the fallopian tube. This can cause internal bleeding and even . Risk factors for an ectopic are: ??? A past ectopic ??? Pelvic inflammatory disease (PID) ??? Endometriosis ??? Smoking ??? An IUD ?? Additional tests It's not known what???s causing your symptoms. So you'll need more tests to figure out what the problem is. You may need the tests below. Ultrasound An ultrasound can often find a normal as early as 4 to 5 weeks along. If the ultrasound does not show the baby inside the uterus, it means 1 of these things: ??? You have a normal less than 4 weeks along ??? You are having or recently had a miscarriage ??? You have an ectopic hormone An HCG test measures the amount of a hormone in your blood. Comparing today's test resultto a repeat test in 2 days will show if you have a normal . Laparoscopy This is a type of surgery. The healthcare provider will put a tube with a light inside your belly to look directly at your pelvic organs. This test is used when it's not safe to wait 2 days for bloodtest results. ?? Important information If you do have an ectopic , there's a small chance that the growing fetus can tear the fallopian tube. This can cause severe internal bleeding. If this happens, you may have: ??? Sudden severe pain in your lower belly ??? Vaginal bleeding ??? Weakness, dizziness, and sometimes fainting If any of these symptoms occur: ??? Call 911or return right away to the hospital. ??? Don't drive yourself. ??? Don't go to your healthcare provider's office or to a clinic. Go to the hospital. ?? Home care Follow these guidelines to help care for yourself at home: ??? Rest until your next exam. Don???t do any strenuous activities. ??? Eat a light diet with foods that are easy to digest. ??? Don???t have sex until your healthcare provider says it???s OK. ?? Follow-up care Follow up with your healthcare provider, or as advised. If you were told to have a repeat blood test in 2 days, it???s important to get it done. If you had an X-ray or ultrasound, a radiologist??will??review??it. You'll be told of any new findings that may affect your care. ?? Call 911 Call 911 if you have any of these: ??? Severe pain and very heavy bleeding ??? Severe lightheadedness, passing out, or fainting ??? Rapid heart rate ??? Trouble breathing ??? Confused or having trouble waking up ?? When to get medical care Call your healthcare provider right away if any of these occur: ??? The pain in your belly gets worse, either suddenly or slowly. ??? You're dizzy or weak when you stand. ??? You have heavy vaginal bleeding. This means soaking 1 pad an hour for 3 hours. ??? You have vaginal bleeding for more than 5days. ??? You have repeated vomiting or diarrhea. ??? The pain in your belly moves to the lower right. ??? You have blood in your vomit or bowel movements. This will be dark red or black. ??? You have a fever of 100.4??F (38??C) or higher, or as advised by your provider. ?? Last Reviewed Date: 2021 ?? [employer]. All rights reserved. This information is not intended as a substitute for professional medical care. Always follow your healthcare professional's instructions. ?? * Jerry Urias MD: PERFORM Event Display: Patient Education Leaflets Authored Date: [id number] ?? [id number] Your exam today shows that you are . symptoms During your body???s hormones change. This causes physical and emotional changes. This isnormal. Knowing what to expect is important for your peace of mind and so you know when to get helpfor a problem. Here are some of the most common symptoms: ??? Morning sickness or nausea. This can happen any time of the day or night. ??? Tender, swollen breasts ??? Need to pee often ??? Tirednessor fatigue ??? Dizziness ??? Indigestion or heartburn ??? Food cravings or turn-offs ??? Constipation ??? Emotional changes. This can range from anxiety to excitement to depression. ?? General care for a healthy Here are things you can do to help make sure your baby is born healthy: ??? Rest when you feel tired. This is especially true in the later months of . ??? Drink more fluids. Your body needs more fluids than you may be used to. Drink 8 to10 glasses of juice, milk, or water every day. ??? Eat well-balanced meals. Eat at regular times to give your body enough protein. You can expect to gainabout 30 pounds during the . Don???t try to diet or lose weight while you are . ??? Take a vitamin every day. This helps you meet the extra nutritional needs of . ??? Don???t take any other medicine during your unless your healthcare provider tells you to. This includes prescription medicines and those you buy over the counter. Many medicines can harm the growing baby. ??? If you have nausea or vomiting, don???t eat greasy or fried foods. Eat severalsmaller meals throughout the day rather than 3 large meals. ??? If you smoke, you must stop. The nicotine you breathe in goes right to the baby. ??? Stay away from alcohol, even in moderate amounts. D aily drinking will harm your baby and can cause permanent brain damage. There is no safe amount of alcohol during ??? Don???t use recreational drugs, especially cocaine, crack, and heroin. These will harm your baby. Also don't use marijuana. ??? If you were using recreational drugs or prescribed medicine when you found out that you were , talk with your healthcare provider about possible effects on your growing baby. ??? If you have medical problems that you need to take medicine for, talk with your healthcare provider. ?? Follow-up care Call your healthcare provider to arrange for care.?? care is important. You can see your family provider, a specialist (route service representative), a tank truck loader, or a primary care clinic. ?? When to get medical advice Call your healthcare provider right away??if any of the following occur: ??? Vaginal bleeding ??? Pain in your belly (abdomen) or back that is moderate or severe ??? Lots of vomiting, or you can???t keep any fluids down for 6 hours ??? Burning feeling when you urinate ??? Headache, dizziness, or rapid weight gain ??? Fever ??? Vision changes or blurred vision ?? Last Reviewed Date: 2021 ?? 5634-6350 [employer]. All rights reserved. This information is not intended as a substitute for professional medical care. Always follow your healthcare professional's instructions. ?? Patient Care team information Care Team Personnel Name: Miladis Redmond RN Position: S RN Member Role: Primary Care Nurse Name: Karri Zhao Position: S PCO Associate Professional Member Role: PCP Address: Address: [address] [place] [address], [place] [address] Name: Lilia To RN Position: S RN Member Role: Primary Care Nurse Name: Sonia Guo Position: [facility] RN Member Role: Primary Care Nurse Name: Mechelle Spencer Position: [facility] RN Member Role: Primary Care Nurse Name: Alethea Mayo RN Position: [facility] RN Member Role: Primary Care Nurse Name: Francoise Cadena RN Position: [facility] RN Member Role: Primary Care Nurse Name: Ana Garcia RN Position: [facility] RN Member Role: Primary Care Nurse Name: Betty Roman RN Position: [facility] AMB Nurse Member Role: Primary Care Nurse Name: Lisha Willett RN Position: [facility] RN Member Role: Primary Care Nurse Name: Sandra Sosa RN Position: [facility] RN Member Role: Primary Care Nurse Name: Hermann Brown Position: [facility] ED TA [facility] Member Role: Rock Cutter Name: Ilda Merrill RN Position: [facility] ED RN W/OE and Tasks Member Role: Patient Care Provider Name: Jerry Urias MD Position: [facility] ED Medicine MD Member Role: Admitting Physician Address: Address: [address] [place] [address] [place] [address]- Care Team Related Persons Name: NABIL MERCHANT Address: home [address] [place] [address] Name: NABIL ALLEN Address: home [address] [place], [place] Name: SHIKHA HOLBROOK Address: [place] [address] Name: CLAUDE BLACK Address: [address] Address: home [address] [place] [address] Name: AMADOR BLACK Address: home [address] [place] [address] Name: CECILIA NELSON Address: home [address] [place], [place] Name: NONE, GIVEN Address: [place] [address]
--- OUTSIDE RECORDS SUMMARY | 2022-12-20 20:18 | XMS_ITS | Continuity of Care Document ---
Author Name Unknown Organization [facility] Address [address] [place] [address]- Care Team Providers Care Ditch Rider Name Role Phone Harris FARAH, Opal Mancini Primary Care Physician Encounter [facility] Date(s): 02/16/21 - 02/17/21 [place] [address] [address] [place] [address]- Discharge Disposition: A-D/C Walkout Attending Physician: Tucker Rey MD Admitting Physician: Tucker Rey MD Referring Physician: Not on Staff, Referring [...] 02/07/21 9:31:00 EDT, Route to Pharmacy Electronically, [facility]/pharmacy #[id number], Partial fillupon patient request if the prescription is for a s... Start Date: 02/07/21 Stop Date: 02/27/21 Status: Ordered famotidine 20 mg oral tablet 20 mg, 1, tablet, By Mouth, Daily, # 30 tablet, Refills 0, Tot. Refills 0, Maintenance, 02/17/21 9:34:00 EDT, Route to Pharmacy Electronically, [facility]/pharmacy #[id number], Partial fill upon [...] 0 Refills, Maintenance, 02/07/21 9:33:00 EDT, Tablet, [facility]/pharmacy #[id number], Partial fill upon [...] 02/07/21 9:32:00 EDT, Route to Pharmacy Electronically, [facility]/pharmacy #[id number], Partial fill upon [...]
--- OUTSIDE RECORDS SUMMARY | 2022-12-20 20:18 | XMS_ITS | Continuity of Care Document ---
Author Name Unknown Organization [facility] Address [address] [place] [address]- Care Team Providers Care Tank Officer Name Role Phone Opal Iglesias NP Primary Care Physician Encounter [facility] Date(s): 06/02/20 - 06/02/20 [place] [address] [address] [place] [address]- Discharge Disposition: A-D/C Walkout Attending Physician: Gagan Sanchez MD Admitting Physician: Gagan Sanchez MD Referring Physician: Not on Staff, Referring [...] recent to oldest [Reference Range]: 1 Height 0 cm (06/02/20 5:27 PM) Weight 48 kg (06/02/20 5:27 PM) Dry Weight 48 kg (06/02/20 5:27 PM) Social History Social History Type Response Smoking Status 5-9 cigarettes (betw een 1/4 to 1/2 pack)/day in last 30 days; Tobacco user in household: Yes;Never; Type: Cigarettes; Previous treatment: Nicotine replacement; Interested in cessation: Yes; Number of years: 18; Started at age: 12; entered on: 02/17/20 Sex
--- OUTSIDE RECORDS SUMMARY | 2022-12-20 20:18 | XMS_ITS | Continuity of Care Document ---
Author Name Unknown Organization [facility] Primary [address] [place] Address [address] [place] [address]- Care Team Providers Care Sales Representative Facility Services Name Role Phone Harris FARAH, Opal Mancini Primary Care Physician [phone] Encounter [facility] Date(s): 04/17/21 - 05/17/21 [facility] [place] [address] [place], [place] [address] Attending Physician: AdmAngie kowalski Admitting Physician: AdmtrAngie Referring Physician: Admtr, Ar8 Allergies, Adverse Reactions, Alerts Substance Reaction Severity [...]
--- OUTSIDE RECORDS SUMMARY | 2022-12-20 20:18 | XMS_ITS | Continuity of Care Document ---
Author Name Unknown Organization [facility] Address [address] [address]- Care Team Providers Care Orthodontic Treatment Coordinator Name Role Phone Harris FARAH, Opal Mancini Primary Care Physician Encounter [facility] Date(s): 02/10/20 - 02/17/20 [facility] [address] [place] [address]- [facility] Attending Physician: Not on Staff, Attending MD Referring Physician: Nish Green MD Allergies, Adverse Reactions, Alerts Substance Reaction [...] Dry Weight Start Date: 05/31/19 Status: Ordered Macrobid macrocrystals-monohydrate 100 mg oral capsule 1 capsule = 100 mg, By Mouth, 2 times a day, for 7 days, Acute, # 14 capsule, 0 Refills, Acute 02/21/20 10:04:00 EDT, 02/14/20 10:04:00 EDT, [id number], 163, cm, 02/10/20 13:56:00 EDT, Height, 49, kg, 12/24/19 10:20:00 EDT, Dry Weight Start Date: 02/14/20 Stop Date: 02/21/20 Status: Ordered Vivitrol Inj = 380 mg, [...] oldest [Reference Range]: 1 Height 163 cm (02/10/20 1:56 PM) Weight 51.6 kg (02/10/20 1:56 PM) Body Mass Index [18.5-24.99] 19.42 (02/10/20 1:56 PM) Blood Pressure [90-138/55-84 mm Hg] 100/ 60mm Hg (02/10/20 1:56 PM) Social History Social History Type Response Smoking Status 5-9 cigarettes (betw een 1/4 to 1/2 pack)/day in last 30 days; Tobacco user in household: Yes;Never; Type: Cigarettes; Previous treatment: Nicotine replacement; Interested in cessation: Yes; Number of years: 18; Started at age: 12; entered on: 02/17/20 Sex
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
--- OUTSIDE RECORDS SUMMARY | 2022-12-20 20:18 | XMS_ITS | Continuity of Care Document ---
Author Name Unknown Organization [facility] [place] Address [address] [place] [address]- Care Team Providers Care Coat Repair Inspector Name Role Phone Harris FARAH, Opal Mancini Primary Care Physician [phone] Encounter [facility] Date(s): 02/24/20 - 03/25/20 [facility] [place] [address] [place] [address]- [facility] Allergies, Adverse Reactions, Alerts Substance Reaction Severity Status NKA Active Immunizations Given and Recorded Vaccine Date Status Refusal Reason tetanus/diphtheria/pertussis, acel(Tdap) 06/24/17 Given tetanus/diphtheria/pertussis, acel(Tdap) 10/14/16 Given Medications Depo-Provera Contraceptive 150 mg/mL intramuscular suspension 1 mL = 150 mg, Intramuscular, Every 3 months, # 1 mL, 1 Refills, Maintenance, 05/31/19 12:31:00 EST, Suspension, [facility]/pharmacy #[id number], 165, cm, 01/08/19 11:16:00 EDT, Height, [...]
--- OUTSIDE RECORDS SUMMARY | 2022-12-20 20:18 | XMS_ITS | Continuity of Care Document ---
Author Name Unknown Organization [facility] Address [address] [place] [address]- Care Team Providers Care Bore Miner Operator Name Role Phone Nish Green MD Primary Care Physician Encounter [facility] Date(s): 12/24/19 - 12/24/19 [facility] [address] [place] [address]- [facility] Encounter Diagnosis Alcohol withdrawal(Final) - 12/24/19 Discharge Disposition: A-D/C Home Attending Physician: Umesh Tijerina DO Admitting Physician: Umesh Tijerina DO Referring Physician: Not on Staff, Referring [...] Dry Weight Start Date: 05/31/19 Status: Ordered Suboxone 4 mg-1 mg sublingual film 1 film, Sublingual, Daily, dissolve under the tongue, 0 Refills, Maintenance, 12/24/19 11:04:00 EDT, Film Start Date: 12/24/19 Status: Ordered Ventolin HFA 108 mcg/inh inhalation [...] Status Health Status Inform ant Alcoholism(Confirmed) Active Chronic viral hepatitis C(Confirmed) Active Cocaine [...] [Reference Range]: 1 2 Height 163 cm (12/24/19 10:20 AM) Weight 49 kg (12/24/19 10:20 AM) Oxygen Saturation [94-100 %] 99 % (12/24/19 12:00 PM) 97 % (12/24/19 10:20 AM) Pulse Rate [55-90 bpm] 78 bpm (12/24/19 12:00 PM) 97 bpm *H* (12/24/19 10:20 AM) Blood Pressure [90-138/55-84 mm Hg] 105/ 64mm Hg (12/24/19 12:00 PM) 88/60mm Hg *L* (12/24/19 10:20 AM) Respiratory Rate [16-30 br/min] 20 br/mi n (12/24/19 12:00 PM) 24 br/min (12/24/19 10:20 AM) Temperature [96.8-100.4 DegF] 98.3 DegF (12/24/19 10:20 AM) Mode of Delivery (Oxygen) Room air (12/24/19 12:00 PM) Room air (12/24/19 10:20 AM) Temperature Route Oral (12/24/19 10:20 AM) Dry Weight 49 kg (12/24/19 10:20 AM) Dry Weight Obtained Via Standing scale (12/24/19 10:20 AM) Social History Social History Type Response Smoking Status Former smoker; Other : QUIT 1 WEEK AGO; entered on: 04/15/17 Sex
--- OUTSIDE RECORDS SUMMARY | 2022-12-20 20:19 | XMS_ITS | Continuity of Care Document ---
Author Name Unknown Organization [facility] Address [address] [place] [address]- Care Team Providers Care Headrig Sawyer Name Role Phone Karri Zhao Primary Care Physician Encounter [facility] Date(s): 10/12/22 - 10/12/[address] [address]- Encounter Diagnosis Encounter for drug screening(Final) - 10/12/22 Discharge Disposition: A-D/C Home Attending Physician: Allan Muller MD Admitting Physician: Allan Muller MD Referring Physician: Not on Staff, Referring [...] 0 Refills, Maintenance, 06/28/22 17:07:00 EST, Tablet, [id number], Partial fill upon patient request if the prescription is fora schedule II opioid drug., 1 tablet By Mouth 2 sherly... Start Date: 06/28/22 Status: Ordered Albuterol (Eqv-ProAir HFA) 90 mcg/inh inhalation aerosol 2 puffs, Inhalation, Every 6 hours, # 8.5 Gm, 0 Refills, Maintenance, 03/12/22 13:40:00 EDT, [facility]/pharmacy #[id number], Partial fill upon patient request if the [...] 3 Refills, Maintenance, 09/23/22 10:46:00 EDT, Tablet, [facility][id number], Partial fill upon patient request if the prescription is for a schedule II opioid drug., 1 tablet By Mouth Daily, 165, cm, 09/22/22 18:0... Start Date: 09/23/22 Status: Ordered Problem List Condition Confirmation Course [...] recent to oldest [Reference Range]: 1 Height 165 cm (10/12/22 8:34 AM) Weight 63.5 kg (10/12/22 8:34 AM) Oxygen Saturation [94-100 %] 100 % (10/12/22 8:34 AM) Pulse Rate [55-90 bpm] 103 bpm *H* (10/12/22 8:34 AM) Blood Pressure [90-138/55-84 mm Hg] 117/ 55mm Hg (10/12/22 8:34 AM) Respiratory Rate [16-30 br/min] 20 br/mi n (10/12/22 8:34 AM) Temperature [96.8-100.4 DegF] 97.4 DegF (10/12/22 8:34 AM) Mode of Delivery (Oxygen) Room air (10/12/22 8:34 AM) Blood pressure sites Arm, left (10/12/22 8:34 AM) Temperature Route Temporal (10/12/22 8:34 AM) Dry Weight 63.5 kg (10/12/22 8:34 AM) Weight Obtained Via Standing scale (10/12/22 8:34 AM) Dry Weight Obtained Via Standing scale (10/12/22 8:34 AM) Social History Social History Type Response Smoking Status Current every day ankush gill; Type: Cigarettes; Other: 1/2 PPD x 10 yrs; Tobacco use times per day: 10; entered on: 08/09/14 Sex Patient Care team information Care Team Personnel Name: Miladis Redmond RN Position: [facility] RN Member Role: Primary Care Nurse Name: Karri Zhao Position: [facility] PCO Associate Professional Member Role: PCP Address: Address: [address] [place] [address] [place] [address]- [place] Name: Lilia To RN Position: [facility] RN Member Role: Primary Care Nurse Name: Sonia Guo Position: [facility] RN Member Role: Primary Care Nurse Name: Mechelle Spencer Position: [facility] RN Member Role: Primary Care Nurse Name: Alethea Mayo RN Position: [facility] RN Member Role: Primary Care Nurse Name: Francoise Cadena RN Position: [facility] RN Member Role: Primary Care Nurse Name: Ana Garcia RN Position: [facility] RN Member Role: Primary Care Nurse Name: Betty Roman RN Position: [facility] AMB Nurse Member Role: Primary Care Nurse Name: Lisha Willett RN Position: [facility] RN Member Role: Primary Care Nurse Name: Sandra Sosa RN Position: [facility] RN Member Role: Primary Care Nurse Name: Opal Lopez RN Position: [facility] ED RN W/OE and Tasks Member Role: Patient Care Provider Name: Allan Muller MD Position: [facility] Resident Member Role: Admitting Physician Address: Address: [address] [place] [address]- [place] Name: Carmel Mason Position: [facility] ED TA [facility] Member Role: Patient Care Provider Name: Sasha Hernandez Position: [facility] Associate Professional Member Role: Physician [employer] Address: Address: [address] [place] [address] [place] [address]- [place] Care Team Related Persons Name: NABIL MERCHANT Address: home [address] [place], [place] Name: NABIL ALLEN Address: [address], [place] Name: SHIKHA HOLBROOK Address: [place] [address] Name: CLAUDE BLACK Address: [address] Address: home [address] [place] [address] [place] Name: AMADOR BLACK Address: home [address] [place] [address] Name: CECILIA NELSON Address: home [address] [place] [address] Name: NONE, [place] Address: [place] [address]
--- OUTSIDE RECORDS SUMMARY | 2022-12-20 20:19 | XMS_ITS | Continuity of Care Document ---
Author Name Unknown Organization [facility] [place] Address [address] [place] [address]- Care Team Providers Care Supervisor Roller Shop Name Role Phone Opal Iglesias NP Primary Care Physician [phone] Encounter [facility] Date(s): 10/03/20 - 11/02/20 [facility] [place] [address] [place] [address]- Allergies, Adverse Reactions, Alerts Substance Reaction Severity [...]
--- OUTSIDE RECORDS SUMMARY | 2022-12-20 20:19 | XMS_ITS | Continuity of Care Document ---
Author Name Unknown Organization [facility] Address [address] [place] [address]- Care Team Providers Care Rehabilitation Case Coordinator Name Role Phone Karri Zhao Primary Care Physician [phone] Encounter [facility] Date(s): 07/02/22 - 07/02/[address] [address]- Discharge Disposition: A-D/C Home Attending Physician: Shyann Latham MD Admitting Physician: Shyann Latham MD Referring Physician: Not on Staff, Referring [...] 0 Refills, Maintenance, 06/28/22 17:07:00 EST, Tablet, [facility] #[id number], Partial fill upon patient request if the prescription is fora schedule II opioid drug., 1 tablet By Mouth 2 sherly... Start Date: 06/28/22 Status: Ordered Albuterol (Eqv-ProAir HFA) 90 mcg/inh inhalation aerosol 2 puffs, Inhalation, Every 6 hours, # 8.5 Gm, 0 Refills, Maintenance, 03/12/22 13:40:00 EDT, [facility]/pharmacy #[id number], Partial fill upon patient request if the prescription is for a schedule II opioid drug., 2 puffs Inhalation Every 6 hours, 164, cm, ... Start Date: 03/12/22 Status: Ordered baclofen 5 mg oral tablet 1 tablet = 5 mg, By Mouth, 3 times a day, # 90 tablet, 2 Refills, Maintenance, 08/16/21 14:42:00 EDT, Tablet, [facility]/pharmacy #[id number], Partial fill upon patient request if [...] 12/07/21 12:47:00 EDT, Route to Pharmacy Electronically, [facility]/pharmacy #[id number], Partial fill upon patient [...] 1 Refills, Maintenance, 07/09/21 14:23:00 EST, Tablet, [facility]/pharmacy #[id number], Partial fill upon patient request if the [...] use Confirmed Active Hepatitis C Confirmed Active Results Orders for Microbiology Reports Name Date Urine Culture (URINE CULTURE) 07/02/22 Microbiology Reports TEST:Urine Culture STATUS:Unauthenticated BODY SITE: SOURCE:URINE COLLECTED DATE/TIME:07/02/22 12:27 AM Urine Culture SPECIMEN DESCRIPTION : URINE SPECIAL REQUESTS : NONE Reflexed from [id number] REPORT STATUS : PRELIMINARY REPORT Vital Signs Most recent to oldest [Reference Range]: 1 2 3 Height 163 cm (07/02/22 1:31 AM) 163 cm (07/02/22 12:15 AM) 163 cm (07/02/22 12:13 AM) Weight 66.9 kg (07/02/22 1:31 AM) 66.9 kg (07/02/22 12:15 AM) 66.9 kg (07/02/22 12:13 AM) Oxygen Saturation [94-100 %] 98 % (07/02/22 5:00 AM) 96 % (07/02/22 1:31 AM) 100 % (07/02/22 12:13 AM) Pulse Rate [55-90 bpm] 76 bpm (07/02/22 5:00 AM) 105 bpm *H* (07/02/22 1:31 AM) 96 bpm *H* (07/02/22 12:13 AM) Body Mass Index [18.5-24.99 kg/m2] 25.18 kg/m2 *H* (07/02/22 1:31 AM) 25.18 kg/m2 *H* (07/02/22 12:13 AM) Blood Pressure [90-138/55-84 mm Hg] 100/65mm Hg (07/02/22 5:00 AM) 101/70mm Hg (07/02/22 1:31 AM) 171/106mm Hg *H* (07/02/22 12:13 AM) Respiratory Rate [16-30 br/min] 18 br/min (07/02/22 5:00 AM) 18 br/min (07/02/22 1:31 AM) 18 br/min (07/02/22 12:13 AM) Temperature [96.8-100.4 DegF] 98.6 DegF (07/02/22 1:31 AM) 97.1 DegF (07/02/22 12:13 AM) Mode of Delivery (Oxygen) Room air (07/02/22 5:00 AM) Room air (07/02/22 1:31 AM) Room air (07/02/22 12:13 AM) Blood pressure sites Arm, left (07/02/22 5:00 AM) Arm, left (07/02/22 1:31 AM) Arm, left (07/02/22 12:13 AM) Temperature Route Oral (07/02/22 1:31 AM) Oral (07/02/22 12:13 AM) Dry Weight 66.9 kg (07/02/22 1:31 AM) 66.9 kg (07/02/22 12:15 AM) 66.9 kg (07/02/22 12:13 AM) Weight Obtained Via Standing scale (07/02/22 12:13 AM) Dry Weight Obtained Via Standing scale (07/02/22 12:13 AM) Social History Social History Type Response Smoking Status Current every day ankush gill; Type: Cigarettes; Other: 1/2 PPD x 10 yrs; Tobacco use times per day: 10; entered on: 08/09/14 Sex EKG study * Event Display: ECG 12-Lead Authored Date: Please click on pdf link to open report * Event Display: ECG 12-Lead Authored Date: Ventricular Rate: 88 BPM Atrial Rate: 88 BPM P-R Interval: 132 ms QRS Duration: 72 ms Q-T Interval: 382 ms QTC Calculation(Bazett): 462 ms P [place]: 69 degrees R [place]: 65 degrees T [place]: 55 degrees Normal sinus rhythm Early repolarization When compared with ECG of 27-JUN-2022 21:37, T wave amplitude has increased in Lateral leads Confirmed by KATERIN GALAVIZ MD ([id number]) on 07/02/2022 9:03:49 PM [place]: KATERIN GALAVIZ MD Note * Shyann Latham MD: PERFORM Event Display: Patient Education Leaflets Authored Date: Cocaine and Crack Abuse ?? [id number] Cocaine and Crack Abuse Cocaine is typically snorted or injected into a vein. It can also be rubbed onto the gums.??Crack is made from cocaine. It can be smoked for a stronger effect. Cocaine causes a very powerful mental and physical dependence.?? Once you have a dependence, you'll do just about anything to get the drug and have the feeling it gives you. This can increase your risk for: ??? Overdose that may lead to ??? Loss of your job, your home, or your family ??? Accidental injuries to yourself or others while you are under the influence of the drug (in a car or at home) ??? Arrest, conviction, and [place] [facility] sentence for possession of an illegal substance or for driving underthe influence Medically, cocaine can affect every organ in your body.??It can cause: ??? Chest pain, heart rhythm problem (arrhythmia), heart attack, and heart failure ??? Very high blood pressure ??? Severe headache, seizures, loss of consciousness, and stroke ??? Anxiety, psychosis, confusion, paranoia, and hallucinations ??? Nasal damage from snorting ??? Nausea, belly (abdominal) pain, and loss of appetite ??? Chronic bronchitis and shortness of breath from smoking ??? Higherrisk for HIV infection, hepatitis B or C, and heart infection. This is from IV use, risky sexual behavior while high, or both.? Kidney failure Home care These tips will help you care for yourself at home: ??? Admit you have a drug problem. Ask for help from your family and close friends. ??? See a mental health provider or counselor if you have depression or anxiety. ??? Join a self-help group for drug abuse. ??? Stay away from people who abuse drugs themselves or who tempt you to continue abusing the drug. ??? Eat a balanced diet and start a regular exercise program. If you continue to use IV cocaine, lower your risk of getting or spreading infection by: ??? Using only sterile equipment ??? Not reusing or sharing equipment ??? Cleaning your skin before injecting ?? Follow-up care Follow up with your healthcare provider, or as advised. Contact 1 of the resources below for help: ??? Substance Abuse and Mental Health Treatment Administration (SAMHSA) at www.samhsa.gov/find-treatment or 796-582-YUIU ??? [facility] [place] on Drug Abuse (ESME) at www.drugabuse.gov ? National [place] on Alcoholism and Drug Dependence at www.ncadd.org ??? Narcotics Anonymous at www.na.org ?? Call 911 Call 911 if any of these occur: ??? Seizure ??? Hard time breathing or slow, irregular breathing ??? Chest pain ??? Sudden weakness on 1 side of your body or sudden trouble speaking ??? Very drowsy or trouble waking up ??? Fast heart rate ?? When to get medical advice Call your healthcare provider right away if any of the following occur: ??? Agitation, anxiety, or unable to sleep ??? Unintended weight loss. This means more than 10 to 15 pounds over 6 months without dieting. ??? Hallucination, severe depression, or thoughts of harming yourself or another ??? Fever of 100.4??F??(38??C) or higher, or as advised by your provider ??? Redness, pain, or swelling at an injection site ??? Loss of vision or decreased vision ?? Last Reviewed Date: 2021 ?? 2042-4792 [employer]. All rights reserved. This information is not intended as a substitute for professional medical care. Always follow your healthcare professional's instructions. ?? * Noa BECERRA, Shyann Hein: PERFORM Event Display: Patient Education Leaflets Authored Date: [id number] Anxiety??Reaction ?? [id number] Anxiety??Reaction Anxiety is the feeling we all [...] connected to trained crisis counselors at the [employer] Suicide Prevention Lifeline. An online chat option is also available at www.suicidepreBocandy.org. You can also call Lifeline at 932-440-VEJW (081-807-4958). Lifeline is free and available 16/12. ?? When to get medical advice Call your healthcare provider right away if any of the following occur: ??? Symptoms that don't improve or get worse, such as feelings of hopelessness or overwhelming sadness ??? Severe headache not eased by rest and mild pain medicine The National Suicide Prevention Lifeline is available at 807-184-GZQM (237-243-9733). The Lifeline is available 16/12 and provides free and confidential support. The Lifeline also has an online chat at www.suicideSwank.org. ?? Last Reviewed Date: 2021 ?? 7244-6347 [employer]. All rights reserved. This information is not intended as a substitute for professional medical care. Always follow your healthcare professional's instructions. ?? Patient Care team information Care Team Personnel Name: Miladis Redmond RN Position: [facility] RN Member Role: Primary Care Nurse Name: Karri Zhao Position: [facility] PCO Associate Professional Member Role: PCP Address: Address: [address] [place] [address] - [place] Name: Lilia To RN Position: [facility] RN Member Role: Primary Care Nurse Name: Sonia Guo Position: [facility] RN Member Role: Primary Care Nurse Name: Mechelle Spencer Position: [facility] RN Member Role: Primary Care Nurse Name: Alethea Mayo RN Position: [facility] RN Member Role: Primary Care Nurse Name: Francoise Cadena RN Position: [facility] RN Member Role: Primary Care Nurse Name: Ana Garcia RN Position: [facility] RN Member Role: Primary Care Nurse Name: Betty Roman RN Position: [facility] AMB Nurse Member Role: Primary Care Nurse Name: Lisha Willett RN Position: [facility] RN Member Role: Primary Care Nurse Name: Sandra Sosa RN Position: [facility] RN Member Role: Primary Care Nurse Name: Ladonna Abraham RN Position: [facility] ED RN W/OE and Tasks Member Role: Patient Care Provider Name: Shyann Latham MD Position: [facility] ED Medicine MD Member Role: ED Attending Physician Address: Address: [address] [place] [address] - [place] Name: Addis Rasmussen Position: [facility] ED TA [facility] Member Role: ED Associate Name: Ashwini Moreno RN Position: [facility] ED RN W/OE and Tasks Member Role: Patient Care Provider Care Team Related Persons Name: NABIL MERCHANT Address: [address], [place] Name: NABIL ALLEN Address: [address] [place], [place] Name: SHIKHA HOLBROOK Address: [place] [address] Name: CLAUDE BLACK Address: Address: home [address] [place], [place] [address] [address] Name: AMADOR BLACK Address: [address] [place], [place] Name: CECILIA NELSON Address: [address] [place], [place] Name: NONE, GIV[place] Address: [place] [address]
--- OUTSIDE RECORDS SUMMARY | 2022-12-20 20:19 | XMS_ITS | Continuity of Care Document ---
Author Name Unknown Organization [facility] Primary [place] e [place] Address [address] [place] [address]- Care Team Providers Care Aba Tutor Name Role Phone Karri Zhao Primary Care Physician Encounter [facility] Date(s): 07/08/22 - 08/07/22 [facility] Care [place] [address] [place], [place] [address] Allergies, Adverse Reactions, Alerts No Known [...] 0 Refills, Maintenance, 06/28/22 17:07:00 EST, Tablet, [id number], Partial fill upon patient request if the prescription is fora schedule II opioid drug., 1 tablet By Mouth 2 sherly... Start Date: 06/28/22 Status: Ordered Albuterol (Eqv-ProAir HFA) 90 mcg/inh inhalation aerosol 2 puffs, Inhalation, Every 6 hours, # 8.5 Gm, 0 Refills, Maintenance, 03/12/22 13:40:00 EDT, [facility]/pharmacy #[id number], Partial fill upon patient request if the [...] 2 Refills, Maintenance, 08/16/21 14:43:00 EDT, Tablet, [facility]/pharmacy #[id number], Partial fill upon patient [...] Team Personnel Name: Miladis Redmond RN Position: [facility] RN Member Role: Primary Care Nurse Name: Karri Zhao Position: [facility] PCO Associate Professional Member Role: PCP Address: Address: [address] [place] [address] Name: Lilia To RN Position: [facility] RN Member Role: Primary Care Nurse Name: Sonia Guo Position: [facility] RN Member Role: Primary Care Nurse Name: Mechelle Spencer Position: [facility] RN Member Role: Primary Care Nurse Name: Alethea Mayo RN Position: [facility] RN Member Role: Primary Care Nurse Name: Francoise Cadena RN Position: [facility] RN Member Role: Primary Care Nurse Name: Ana Garcia RN Position: [facility] RN Member Role: Primary Care Nurse Name: Betty Roman RN Position: [facility] AMB Nurse Member Role: Primary Care Nurse Name: Lisha Willett RN Position: [facility] RN Member Role: Primary Care Nurse Name: Sandra Sosa RN Position: [facility] RN Member Role: Primary Care Nurse Care Team Related Persons Name: NABIL MERCHANT Address: home [address] [place] [address] Name: NABIL ALLEN Address: home [address] [place] [address] Name: SHIKHA HOLBROOK Address: [place] [address] Name: CLAUDE BLACK Address: Address: home [address] [place] [address] Name: AMADOR BLACK Address: home [address] [place] [address] Name: CECILIA NELSON Address: home [address] [place] [address] Name: NONE, [place] Address: [place] [address]
--- OUTSIDE RECORDS SUMMARY | 2022-12-20 20:19 | XMS_ITS | Continuity of Care Document ---
Author Name Unknown Organization [facility] Primary Car e [place] Address [address] [place] [address]- Care Team Providers Care Industrial Truck Mechanic Name Role Phone Harris FARAH, Opal Mancini Primary Care Physician [phone] [id number] Date(s): 05/17/21 - 06/16/21 [facility] Care [place] [address] [place], [place] [address] Allergies, Adverse Reactions, Alerts No Known [...]
--- OUTSIDE RECORDS SUMMARY | 2022-12-20 20:19 | XMS_ITS | Continuity of Care Document ---
Author Name Unknown Organization [facility] ter Address [address] [place] [address]- Care Team Providers Care Glass Processing Worker Name Role Phone Opal Iglesias NP Primary Care Physician [phone] Encounter [facility] Date(s): 02/16/21 - 02/16/[address] [address]- Discharge Disposition: A-D/C Walkout Attending Physician: Not on Staff, Attending MD Admitting Physician: Not on Staff, Admitting MD Referring Physician: Not on Staff, Referring MD Allergies, Adverse Reactions, Alerts Substance Reaction Severity Status NKA Active Immunizations Given and Recorded Vaccine Date Status Refusal Reason tetanus/diphtheria/pertussis, acel(Tdap) 06/24/17 Given tetanus/diphtheria/pertussis, acel(Tdap) 10/14/16 Given Not Given Vaccine Date Status Refusal Reason influenza virus vaccine, inactivated 04/24/20 Not Given Patient Refuses Medications cloNIDine 0.1 mg oral tablet 0.1 mg, 1, tablet, By Mouth, 3 times a day, PRN, # 30 tablet, Refills 1, Tot. Refills 1, Maintenance, Anxiety, 02/07/21 9:31:00 EDT, Route to Pharmacy Electronically, [facility]/pharmacy #[id number], Partial fillupon patient request if the prescription is for a s... Start Date: 02/07/21 Stop Date: 02/27/21 Status: Ordered gabapentin 400 mg oral capsule 400 mg, By Mouth, 3 times a day, # 42 capsule, Refills 1, Tot. Refills 1, Maintenance, 02/07/21 9:31:00 EDT, Route to Pharmacy Electronically, [facility]/pharmacy #[id number], Partial fill upon patient request ifthe [...] 02/07/21 9:32:00 EDT, Route to Pharmacy Electronically, [id number], [...] Most recent to oldest [Reference Range]: 1 Oxygen Saturation [94-100 %] 100 % (02/16/21 1:20 PM) Pulse Rate [55-90 bpm] 115 bpm *H* (02/16/21 1:20 PM) Mode of Delivery (Oxygen) Room air (02/16/21 1:20 PM) Social History Social History Type Response Smoking Status Current every day ankush gill; Type: Cigarettes; Other: 1/2 PPD x 10 yrs; Tobacco use times per day: 10; entered on: 08/09/14 Sex
--- OUTSIDE RECORDS SUMMARY | 2022-12-20 20:19 | XMS_ITS | Continuity of Care Document ---
Author Name Unknown Organization [facility] Address [address] [place] [address]- Care Team Providers Care Shroudman Name Role Phone Opal Iglesias NP Primary Care Physician Encounter [facility] Date(s): 01/02/21 - 02/01/21 [facility] [place] [address] [place] [address]- Attending Physician: Angie Kerr Admitting Physician: Angie [...]
--- OUTSIDE RECORDS SUMMARY | 2022-12-20 20:19 | XMS_ITS | Continuity of Care Document ---
Author Name Unknown Organization [facility] Primary Car e [place] Address [address] [place] [address]- Care Team Providers Care Byproducts Supervisor Name Role Phone Opal Iglesias NP Primary Care Physician Encounter [facility] Date(s): 08/23/20 - 09/22/20 [facility] Care [place] [address] [place] [address]- Allergies, Adverse Reactions, Alerts Substance Reaction Severity [...]
--- OUTSIDE RECORDS SUMMARY | 2022-12-20 20:19 | XMS_ITS | Continuity of Care Document ---
Author Name Unknown Organization [facility] Primary Car e [place] Address [address] [place] [address]- Care Team Providers Care Pediatric Nurse Name Role Phone Karri Zhao Primary Care Physician Encounter [facility] NBR [id number] Date(s): 12/14/21 - 01/13/22 [facility] Care [place] [address] [place], [place] [address] Allergies, Adverse Reactions, Alerts [...]
--- OUTSIDE RECORDS SUMMARY | 2022-12-20 20:19 | XMS_ITS | Continuity of Care Document ---
Author Name Unknown Organization [facility] Primary Car e [place] Address [address] [place] [address]- Care Team Providers Care Adhesive Primer Name Role Phone Opal Iglesias NP Primary Care Physician Encounter [facility] Date(s): 10/16/20 - 12/07/20 [facility] Care [place] [address] [place], [place] [address] Attending Physician: Katie BECERRA ([facility] Allergies, Adverse Reactions, Alerts Substance Reaction Severity [...]
--- OUTSIDE RECORDS SUMMARY | 2022-12-20 20:19 | XMS_ITS | Continuity of Care Document ---
Author Name Unknown Organization [facility] Address [address] [place] [address]- Care Team Providers Care Fabric Stretcher Name Role Phone Karri Zhao Primary Care Physician [phone] Encounter [facility] NBR [id number] Date(s): 12/15/21 - 12/16/[address] [address]- Discharge Disposition: A-D/C Home Attending Physician: Shyann Latham MD Admitting Physician: Shyann Latham MD Referring Physician: Not on Staff, Referring MD Allergies, Adverse Reactions, Alerts No Known Allergies Immunizations Given and Recorded Vaccine Date Status Refusal Reason tetanus/diphtheria/pertussis, acel(Tdap) 06/24/17 Given tetanus/diphtheria/pertussis, acel(Tdap) 10/14/16 Given Not Given Vaccine Date Status Refusal Reason influenza virus vaccine, inactivated 04/24/20 Not Given Patient Refuses Medications No Known Medications Problem List Condition Effective Dates Status Health [...] [Reference Range]: 1 2 Height 165 cm (12/15/21 6:57 AM) 165 cm (12/15/21 12:29 AM) Weight 66 kg (12/15/21 12:29 AM) Oxygen Saturation [94-100 %] 91 % *L* (12/15/21 6:57 AM) 99 % (12/15/21 12:29 AM) Pulse Rate [55-90 bpm] 88 bpm (12/15/21 6:57 AM) 94 bpm *H* (12/15/21 12:29 AM) Blood Pressure [90-138/55-84 mm Hg] 122/ 76mm Hg (12/15/21 6:57 AM) 144/83mm Hg *H* (12/15/21 12:29 AM) Respiratory Rate [16-30 br/min] 28 br/mi n (12/15/21 12:29 AM) Temperature [96.8-100.4 DegF] 97.9 DegF (12/15/21 6:57 AM) 97.4 DegF (12/15/21 12:29 AM) Mode of Delivery (Oxygen) Room air (12/15/21 6:57 AM) Room air (12/15/21 12:29 AM) Blood pressure sites Arm, right (12/15/21 6:57 AM) Arm, right (12/15/21 12:29 AM) Temperature Route Oral (12/15/21 6:57 AM) Temporal (12/15/21 12:29 AM) Dry Weight 66 kg (12/15/21 12:29 AM) Dry Weight Obtained Via Patient/family s tated (12/15/21 12:29 AM) Social History Social History Type Response Smoking Status Current every day ankush gill; Type: Cigarettes; Other: 1/2 PPD x 10 yrs; Tobacco use times per day: 10; entered on: 08/09/14 Sex
--- OUTSIDE RECORDS SUMMARY | 2022-12-20 20:19 | XMS_ITS | Continuity of Care Document ---
Author Name Unknown Organization [facility] Primary Car e [place] Address [address] [place] [address]- Care Team Providers Care Retail Cashier Name Role Phone Opal Iglesias NP Primary Care Physician Encounter [facility] Date(s): 06/18/21 - 09/08/21 [facility] [place] [address] [place], [place] [address] Attending Physician: Opal Iglesias NP Allergies, Adverse Reactions, Alerts No Known Allergies [...]
--- OUTSIDE RECORDS SUMMARY | 2022-12-20 20:19 | XMS_ITS | Continuity of Care Document ---
Author Name Unknown Organization [facility] Address [address] [address]- Care Team Providers Care Forestry Worker Name Role Phone Harris FARAH, Opal Mancini Primary Care Physician [phone] [id number] Date(s): 02/10/20 - 03/11/20 [facility] [address] [address]- [facility] Attending Physician: Angie Kerr Admitting Physician: Angie [...] 1 Refills, Maintenance, 05/31/19 12:31:00 EST, Suspension, [facility]/pharmacy #[id number], 165, cm, 01/08/19 11:16:00 EDT, Height, [...]
--- OUTSIDE RECORDS SUMMARY | 2022-12-20 20:19 | XMS_ITS | Continuity of Care Document ---
Author Name Unknown Organization [facility] Primary Car e [place] Address [address] [place] [address]- Care Team Providers Care Brand Ambassador Promotional Model Name Role Phone Opal Iglesias NP Primary Care Physician [phone] Encounter [facility] Date(s): 07/24/21 - 08/23/21 [facility] Primary [place] [address] [place], [place] [address] Attending Physician: Justin Batista MD Allergies, Adverse Reactions, Alerts No Known [...]
--- OUTSIDE RECORDS SUMMARY | 2022-12-20 20:19 | XMS_ITS | Continuity of Care Document ---
Author Name Unknown Organization [facility] ter Address [address] [place] [address]- Care Team Providers Care Grip Name Role Phone Karri Zhao Primary Care Physician Encounter [facility] Date(s): 05/05/22 - 05/05/[address] [address]- Discharge Disposition: A-D/C Walkout Attending Physician: Not [...] Gm, 0 Refills, Maintenance, 03/12/22 13:40:00 EDT, [facility]/pharmacy #[id number], Partial fill upon patient request if the [...] [Reference Range]: 1 Oxygen Saturation [94-100 %] 97 % (05/05/22 3:20 PM) Pulse Rate [55-90 bpm] 135 bpm *H* (05/05/22 3:20 PM) Mode of Delivery (Oxygen) Room air (05/05/22 3:20 PM) Social History Social History Type Response Smoking Status Current every day ankush oker; Type: Cigarettes; Other: 1/2 PPD x 10 yrs; Tobacco use times per day: 10; entered on: 08/09/14 Sex Patient Care team information Care Team Personnel Name: Miladis Redmond RN Position: [facility] RN Member Role: Primary Care Nurse Name: Karri Zhao Position: [facility] PCO Associate Professional Member Role: PCP Address: Address: [address] [place] [address], [place] [address] Name: Lilia To RN Position: [facility] RN Member Role: Primary Care Nurse Name: Sonia Guo Position: [facility] RN Member Role: Primary Care Nurse Name: Mechelle Spencer Position: [facility] RN Member Role: Primary Care Nurse Name: Alethea Mayo RN Position: [facility] RN Member Role: Primary Care Nurse Name: Francoise Cadena RN Position: [facility] RN Member Role: Primary Care Nurse Name: Ana Garcia RN Position: [facility] RN Member Role: Primary Care Nurse Name: Betty Roman RN Position: [facility] AMB Nurse Member Role: Primary Care Nurse Name: Lisha Willett RN Position: [facility] RN Member Role: Primary Care Nurse Name: Sandra Sosa RN Position: [facility] RN Member Role: Primary Care Nurse Care Team Related Persons Name: NABIL MERCHANT Address: home [address] [place] [address] Name: NABIL ALLEN Address: home [address] [place] [address] Name: SHIKHA HOLBROOK Address: [place] [address] Name: CLAUDE BLACK Address: Address: home [address] [place] [address] Name: AMADOR BLACK Address: home [address] [place] [address] Name: CECILIA NELSON Address: home [address] [place], [place] Name: NONE, GIVEN Address: [place] [address]
--- OUTSIDE RECORDS SUMMARY | 2022-12-20 20:19 | XMS_ITS | Continuity of Care Document ---
Author Name [facility] Address [address] [place] [address]- Care Team Providers Care Rda Name Role Phone Opal Iglesias NP Primary Care Physician Encounter [facility] Date(s): 06/02/20 - 06/02/20 [place] [address] [address] [place] [address]- Discharge Disposition: A-D/C Walkout Attending Physician: Gagan [...] [Reference Range]: 1 2 Height 165 cm (06/02/20 8:00 PM) 165 cm (06/02/20 6:41 PM) Weight 51.4 kg (06/02/20 8:00 PM) 51.4 kg (06/02/20 6:41 PM) Oxygen Saturation [94-100 %] 100 % (06/02/20 6:41 PM) Pulse Rate [55-90 bpm] 98 bpm *H* (06/02/20 6:41 PM) Blood Pressure [90-138/55-84 mm Hg] 131/ 53mm Hg (06/02/20 6:41 PM) Respiratory Rate [16-30 br/min] 16 br/mi n (06/02/20 6:41 PM) Temperature [96.8-100.4 DegF] 98.4 DegF (06/02/20 6:41 PM) Mode of Delivery (Oxygen) Room air (06/02/20 6:41 PM) Temperature Route Oral (06/02/20 6:41 PM) Dry Weight 51.4 kg (06/02/20 8:00 PM) 51.4 kg (06/02/20 6:41 PM) Weight Obtained Via Standing scale (06/02/20 6:41 PM) Social History Social History Type Response Smoking Status 5-9 cigarettes (betw een 1/4 to 1/2 pack)/day in last 30 days; Tobacco user in household: Yes;Never; Type: Cigarettes; Previous treatment: Nicotine replacement; Interested in cessation: Yes; Number of years: 18; Started at age: 12; entered on: 02/17/20 Sex
--- OUTSIDE RECORDS SUMMARY | 2022-12-20 20:19 | XMS_ITS | Continuity of Care Document ---
Author Name Unknown Organization [facility] Address [address] [address]- Care Team Providers Care Buzzsaw Operator Helper Name Role Phone Karri Zhao Primary Care Physician Encounter [facility] Date(s): 11/08/22 - 12/14/22 [facility] [address] [address]- Attending Physician: John Vang DO Admitting Physician: John Vang DO Referring Physician: John Vang DO Allergies, Adverse Reactions, Alerts No Known Allergies [...] 0 Refills, Maintenance, 06/28/22 17:07:00 EST, Tablet, [facility] #[id number], Partial fill upon patient request if the [...] Team Personnel Name: Miladis Redmond RN Position: [facility] RN Member Role: Primary Care Nurse Name: Karri Zhao Position: [facility] PCO Associate Professional Member Role: PCP Address: Address: [address] [place] [address]- Name: Lilia To RN Position: [facility] RN Member Role: Primary Care Nurse Name: Sonia Bose [place] Position: [facility] RN Member Role: Primary Care Nurse Name: Mechelle Spencer Position: [facility] RN Member Role: Primary Care Nurse Name: Alethea Mayo RN Position: [facility] RN Member Role: Primary Care Nurse Name: Francoise Cadena RN Position: [facility] RN Member Role: Primary Care Nurse Name: Ana Garcia RN Position: [facility] RN Member Role: Primary Care Nurse Name: Betty Roman RN Position: [facility] AMB Nurse Member Role: Primary Care Nurse Name: Lisha Willett RN Position: [facility] RN Member Role: Primary Care Nurse Name: Sandra Sosa RN Position: [facility] RN Member Role: Primary Care Nurse Care Team Related Persons Name: SHONDAASTERN Address: home [address] [place] [address] Name: NABIL ALLEN Address: home [address] [place] [address] Name: SHIKHA HOLBROOK Address: [place] [address] Name: CLAUDE BLACK Address: Address: home [address] [place] [address] Name: AMADOR BLACK Address: home [address] [place] [address] Name: CECILIA NELSON Address: home [address] [place], [place] Name: NONE, [place] Address: [place] [address]
--- OUTSIDE RECORDS SUMMARY | 2022-12-20 20:19 | XMS_ITS | Continuity of Care Document ---
Author Name Unknown Organization [facility] Primary [place] e [place] Address [address] [place] [address]- Care Team Providers Care Warp Drawer Name Role Phone Opal Iglesias NP Primary Care Physician Encounter [facility] Date(s): 07/11/21 - 08/10/21 [facility] Care [place] [address] [place] [address]- Allergies, Adverse Reactions, Alerts No Known Allergies [...]
--- OUTSIDE RECORDS SUMMARY | 2022-12-20 20:19 | XMS_ITS | Continuity of Care Document ---
Author Name Unknown Organization [facility] Address [address] [place] [address]- Care Team Providers Care Tar Distributor Operator Name Role Phone Karri Zhao Primary Care Physician [phone] En[facility] [id number] Date(s): 03/29/22 - 07/27/22 [facility] [address] [place] [address]- Attending Physician: Eric Momin MD Admitting Physician: Eric Momin MD Referring Physician: Karri Zhao Allergies, Adverse [...] 0 Refills, Maintenance, 06/28/22 17:07:00 EST, Tablet, [facility] #[id number], Partial fill upon patient request if the prescription is fora schedule II opioid drug., 1 tablet By Mouth 2 sherly... Start Date: 06/28/22 Status: Ordered Albuterol (Eqv-ProAir HFA) 90 mcg/inh inhalation aerosol 2 puffs, Inhalation, Every 6 hours, # 8.5 Gm, 0 Refills, Maintenance, 03/12/22 13:40:00 EDT, [facility]/pharmacy #[id number], Partial fill upon patient request if the [...] Team Personnel Name: Miladis Redmond RN Position: [facility] RN Member Role: Primary Care Nurse Name: Karri Zhao Position: [facility] PCO Associate Professional Member Role: PCP Address: Address: [address] [place] [address] Name: Lilia To RN Position: [facility] RN Member Role: Primary Care Nurse Name: Sonia Guo Position: [facility] RN Member Role: Primary Care Nurse Name: Mechelle Spencer Position: [facility] RN Member Role: Primary Care Nurse Name: Alethea Mayo RN Position: [facility] RN Member Role: Primary Care Nurse Name: Francoise Cadena RN Position: [facility] RN Member Role: Primary Care Nurse Name: Ana Garcia RN Position: [facility] RN Member Role: Primary Care Nurse Name: Betty Roman RN Position: [facility] AMB Nurse Member Role: Primary Care Nurse Name: Lisha Willett RN Position: [facility] RN Member Role: Primary Care Nurse Name: Sheila MONTANEZ, Sandra Position: [facility] RN Member Role: Primary Care Nurse Care Team Related Persons Name: SHONDAASTERN Address: home [address] [place], [place] Name: NABIL ALLEN Address: home [address] [place] [address] Name: SHIKHA HOLBROOK Address: [place] [address] Name: CLAUDE BLACK Address: Address: home [address] [place] [address] Name: AMADOR BLACK Address: home [address] [place] [address] Name: CECILIA NELSON Address: home [address] [place] [address] Name: NONE, [place]IV[place] Address: [place] [address]
--- OUTSIDE RECORDS SUMMARY | 2022-12-20 20:19 | XMS_ITS | Continuity of Care Document ---
Author Name Unknown Organization [facility] Primary Car e [place] Address [address] [place] [address]- Care Team Providers Care Meter Tester Polyphase Name Role Phone Opal Iglesias NP Primary Care Physician Encounter [facility] Date(s): 07/11/21 - 08/10/21 [facility] [place] [address] [place] [address]- Allergies, Adverse Reactions, Alerts No Known Allergies [...]
--- OUTSIDE RECORDS SUMMARY | 2022-12-20 20:19 | XMS_ITS | Continuity of Care Document ---
Author Name Unknown Organization [facility] Address [address] [address]- Care Team Providers Care Superintendent Division Name Role Phone Nish Green MD Primary Care Physician [facility] Date(s): 01/13/20 - 01/20/20 [facility] [address] [place] [address] [place] Attending Physician: Not on Staff, Attending MD [...] Dry Weight Start Date: 05/31/19 Status: Ordered Diflucan 150 mg oral tablet 1 tablet = 150 mg, By Mouth, Once, # 1 tablet, 0 Refills, Soft Stop, 01/13/20 15:56:00 EDT, Tablet,[id number], 163, cm, 01/13/20 15:44:00 EDT, Height, 49, kg, 12/24/19 10:20:00 EDT, Dry Weight Start Date: 01/13/20 Status: Ordered Suboxone 4 mg-1 mg sublingual [...] [Reference Range]: 1 2 Height 163 cm (01/13/20 3:44 PM) Weight 49.5 kg (01/13/20 3:44 PM) Body Mass Index [18.5-24.99] 18.63 (01/13/20 3:44 PM) Blood Pressure [90-138/55-84 mm Hg] 100/ 60mm Hg (01/13/20 4:05 PM) 100/60mm Hg (01/13/20 3:44 PM) Social History Social History Type Response Smoking Status Former smoker; Other : QUIT 1 WEEK AGO; entered on: 04/15/17 Sex
[2022-12-20 20:30] VITALS: BP 138/95; PULSE 125; TEMP 36.6
[2022-12-20] MEDS: Melatonin 3 MG TABLET 9 MG PO (21:54)
[2022-12-20] MEDS: cloNIDine HCL 0.1 MG TABLET PO (21:54)
[2022-12-20] MEDS: hydrOXYzine HCL 25 MG TABLET PO (21:54)
--- NOTE | 2022-12-20 22:01 | PC.ADMIT ---
Marni is a 32 year old female coming to [facility] M5 from [facility] presenting with paranoid thinking. Pt reported to be 5-6 weeks but is actually 17 weeks and 4 days . Pt has a hx of ADD and anxiety. Pt UTOX positive for alcohol and THC. COVID negative. Pt is tearful upon arrival, stating she doesn't want to be here. Pt is guarded, stated she was lied to at the other hospital about coming here. Per crisis assessment symptoms of paranoia are worsening. Pt did sign a CV and then requested to sign a three day notice. Pt asked for a sandwich and mine karri and was brought to her room after being shown around the unit. Pt is upset about being here, per ems tried to jump off the stretcher so came up with security. Pt is more calm. Pt did not want to sign legals at this time. Provider notified of admission, orders are placed. Monitor for safety and begin treatment plan.
--- NOTE | 2022-12-21 02:13 | PC.NURSE ---
pt signed a 3 day notice on wednesday 12/20. up on 12/25
[2022-12-21] MEDS: Acetaminophen 325 MG TABLET 650 MG PO ×3 (07:05→20:22)
[2022-12-21 08:00] LABS: Alanine Aminotransferase 17 U/L (0-31); Albumin Level 3.6 g/dL (3.5-5.0); Alkaline Phosphatase 50 U/L (39-117); Anion Gap 15 (12-20); Aspartate Amino Transferase 16 U/L (5-31); Bilirubin Total 0.6 mg/dL (0.0-1.0); Blood Urea Nitrogen 14 mg/dL (9-16); Carbon Dioxide 17 mmol/L (22-29); Chloride 105 mmol/L (96-108); Cholesterol 147 mg/dL; Estimated Glomerular Filt Rate > 60; Glucose Fasting 103 mg/dL (60-99); HDL Cholesterol 64 mg/dL; LDL Cholesterol Calculated 63 mg/dl; Magnesium 1.7 mg/dL (1.6-2.6); Sodium 133 mmol/L (135-145); Total Protein 6.5 g/dL (6.5-8.0); Triglycerides 103 mg/dL
[2022-12-21 08:07] LABS: Estimated Average Glucose 77 mg/dL; Hemoglobin A1c % 4.3 %
[2022-12-21 08:20] LABS: Free T4 (Free Thyroxine) 0.82 ng/dL (0.71-1.85); Thyroid Stimulating Hormone 1.31 uIU/mL (0.32-4.0)
[2022-12-21 08:31] LABS: Vitamin B12 273 pg/mL (200-900)
--- NOTE | 2022-12-21 09:00 | ECG_ITS ---
Test Reason : R/O QTc prolongation Blood Pressure : / mmHG Vent. Rate : 089 BPM Atrial Rate : 089 BPM P-R Int : 126 ms QRS Dur : 078 ms QT Int : 346 ms P-R-T Axes : 059 056 045 degrees QTc Int : 420 ms Normal sinus rhythm with sinus arrhythmia Normal ECG No previous ECGs available Referred By: Soraya Starks Electronically Signed By:VITO HUNTER MD
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
[2022-12-21 09:08] VITALS: BP 115/58; PULSE 96; RESP 18; TEMP 36.3; O2SAT 99
[2022-12-21] MEDS: LORazepam 0.5 MG TABLET PO ×2 (09:46→18:14)
[2022-12-21] MEDS: Gabapentin 400 MG CAPSULE 800 MG PO ×3 (09:47→20:21)
[2022-12-21] MEDS: cloNIDine HCL 0.2 MG TABLET PO (13:45)
--- NOTE | 2022-12-21 13:55 | P.CONHOSP_ITS ---
History of Present Illness Data of Consult Service Date: 12/21/22 Primary Care Provider: Unknown Physician HPI Reason for consult: Admission H&P Pt is a 32-year-old female with a PMH significant for? at 17 weeks and 4 days, depression, and anxiety who is admitted to M3 psychiatry unit for increased anxiety and paranoid thoughts of persecution. Medical consult for admission H&P. ?Patient complains of right lower jaw swelling and pain that has been going on for the past 3-4 days. Denies fever, chills. No purulent drainage. Patient states that she has had a dental abscess in the area before which ?popped? bites cell and drained. Patient did not seek medical/dental evaluation at that time. She is not regularly seeing a dentist outpatient. Patient is currently 17 weeks and regularly sees an crossing watchman outpatient. Currently has no complaints or worries about her . Denies nausea, vomiting, lower leg swelling. No abnormal uterine bleeding. Denies any changes to bowel or bladder habits. No abdominal pain. Denies chest pain/pressure, palpitations. No shortness of breath. Labs reviewed, grossly unremarkable. EKG showed normal sinus rhythm with no evidence of ST elevations or depressions. Review of Systems Review of Systems: Pain and swelling left lower trauma Patient advise has no acute medical complaints at this time Yes all other systems are reviewed and are negative [facility] Social History Household Members: Unknown / Unable to assess Housing: Unknown / Unable to assess Unable to assess alcohol history related to: Unknown Patient Tobacco Use Status: Current everyday Tobacco user Tobacco use type: Cigarette Smoked in Last 30 Days: Yes Patient Interested in Nicotine Replacement: Yes Patient Given Instructions on How to Stop Smoking: No (refused) Second Hand Smoke Exposure: No Use of substances other than those prescribed or required for medical reasons: Yes Substance Use Type: Marijuana Currently Displaying Signs/Symptoms of Drug Intoxication Withdrawal: No Advance Directives: No Advance Directives Information Provided: Yes Do you have thoughts of harming others: None Do you have a plan to hurt others: No Plan Recently lost weight without trying: Unsure Nutrition Risks: No Nutritional Risk Patient : Yes (17 weeks 4 days) : No Poor oral hygiene: No service: No Sexual orientation: Straight/Heterosexual Meds Allergies Allergy/AdvReac Type Severity Reaction Status Date / Time No Known Allergies Allergy Verified 12/20/22 15:46 Active Medications: Current Medications Acetaminophen (Acetaminophen 325 Mg Tablet) 650 mg PO Q6H PRN PRN Reason: Headache/Pain Mild Scale (1-3) Last Admin: 12/21/22 13:44 Dose: 650 mg Al Hydroxide/Mg Hydroxide (Magnesium Hydrox/Alum Hydrox 30 Ml Oral.Susp) 30 ml PO Q6H PRN PRN Reason: Heartburn/Nausea Clonidine HCl (Clonidine Hcl 0.2 Mg Tablet) 0.2 mg PO TID PRN; Protocol PRN Reason: Anxiety Last Admin: 12/21/22 13:45 Dose: 0.2 mg Gabapentin (Gabapentin 400 Mg Capsule) 800 mg PO TID [facility] Last Admin: 12/21/22 13:45 Dose: 800 mg Hydroxyzine HCl (Hydroxyzine Hcl 25 Mg Tablet) 25 mg PO Q6H PRN PRN Reason: Anxiety Last Admin: 12/20/22 21:54 Dose: 25 mg Lorazepam (Lorazepam 0.5 Mg Tablet) 0.5 mg PO BID PRN PRN Reason: Anxiety Last Admin: 12/21/22 09:46 Dose: 0.5 mg Magnesium Hydroxide (Milk Of Magnesia 30 Ml Oral.Susp) 30 ml PO DAILY PRN PRN Reason: Constipation Melatonin (Melatonin 3 Mg Tablet) 9 mg PO BEDTIME [facility] Last Admin: 12/20/22 21:54 Dose: 9 mg Trazodone HCl (Trazodone Hcl 50 Mg Tablet) 50 mg PO BEDTIME MRX1 PRN PRN Reason: Insomnia Home Medications Medication Instructions Recorded Confirmed Last Taken Type dextroamphetamine-amphetamine ER 30 mg PO BID 12/20/22 12/20/22 Unknown History 30 mg 24hr capsule,extend release (Adderall XR) gabapentin 800 mg tablet 800 mg PO TID 12/20/22 12/20/22 Unknown History Physical Exam Vital Signs and Narrative: Vital Signs: Last Vital Signs Temp 97.4 F 12/21/22 09:08 Pulse 96 12/21/22 09:08 Resp 18 12/21/22 09:08 BP 115/58 L 12/21/22 09:08 Pulse Ox 99 12/21/22 09:08 O2 Del Method Room Air 12/21/22 09:08 Constitutional: Alert, in no acute distress. Mental Status: Oriented to person, place and time. Eyes: Pupils are equal, round, and reactive to light. Ear, Nose, and Throat: Oropharynx clear, mucous membranes moist. Ears and nose without deformities. Trachea midline. Swelling and tenderness of the left lower jaw. Area of erythema and discoloration at site of missing third molar on lower left quadrant. No obvious area of fluctuance. No sign of purulent drainage. See picture below Respiratory: Clear to auscultation bilaterally. No wheezing, rales, or rhonchi. Cardiovascular: S1, S2 regular. No murmurs, rubs, or gallops. Gastrointestinal: Abdomen soft, non-tender. Appears appropriate size given gestational age. Normal bowel sounds. Neurologic: Cranial nerves II-XII are grossly intact bilaterally. No focal neurological deficits. Moves all extremities spontaneously. Skin: No rashes or lesions noted. Musculoskeletal: No cyanosis or clubbing. Extremities: No edema. Psychiatric: Normal mood and affect. Results Labs 12/21/22 07:32 Labs: Laboratory Results - last 24 hr 12/21/22 12/21/22 12/21/22 07:32 07:32 07:32 Anion Gap 15 Estim Creat Clear Calc TNP Estimated GFR > 60 Fasting Glucose 103 H Estimat Average Glucose 77 Hemoglobin A1c % 4.3 Calcium 9.0 Magnesium 1.7 Total Bilirubin 0.6 AST 16 ALT 17 Alkaline Phosphatase 50 Total Protein 6.5 Albumin 3.6 Triglycerides 103 Cholesterol 147 LDL Cholesterol, Calc 63 HDL Cholesterol 64 Vitamin B12 273 Folate 13.0 TSH 1.31 Free T4 0.82 Assessment and Plan (1) Routine history and physical examination of adult: Status: Acute (2) Dental abscess: Status: Acute Plan Pt is a 32-year-old female with a PMH significant for? at 17 weeks and 4 days, depression, and anxiety who is admitted to M3 psychiatry unit for increased anxiety and paranoid thoughts of persecution. Medical consult for admission H&P. ?Patient complains of right lower jaw swelling and pain that has been going on for the past 3-4 days. Mood disorder Plan as per Psychiatry Dental abscess/infection Patient afebrile, denies fever, chills Will treat with Augmentin 875 mg b.i.d. No indication for emergent draining of abscess, but should contact an outpatient dentist to set up appointment immediately after discharge Patient has no acute medical complaints at this time Should follow up outpatient with plant maintenance mechanic Thank you for allowing us to participate in the care of this patient. Signing off at this time. Please let us know if there are any acute complaints or questions. Time Spent With Patient Time: Total time managing care of this patient today ____ minutes.
[2022-12-21 18:00] VITALS: BP 122/56; PULSE 120; TEMP 36.5; O2SAT 98
[2022-12-21] MEDS: Amoxicillin/Potassium Clav 875 MG TABLET PO (18:14)
[2022-12-21] MEDS: Melatonin 3 MG TABLET 9 MG PO (20:23)
[2022-12-21] MEDS: traZODone HCL 50 MG TABLET PO (20:23)
[2022-12-21] MEDS: hydrOXYzine HCL 25 MG TABLET PO (20:23)
[2022-12-22 06:00] VITALS: BP 132/72; PULSE 82; RESP 16; TEMP 36.4; O2SAT 98
[2022-12-22] MEDS: Amoxicillin/Potassium Clav 875 MG TABLET PO ×2 (06:28→18:32)
[2022-12-22] MEDS: Acetaminophen 325 MG TABLET 650 MG PO ×3 (07:01→20:49)
[2022-12-22] MEDS: LORazepam 0.5 MG TABLET PO ×2 (07:02→14:58)
[2022-12-22] MEDS: Folic Acid 1 MG TABLET PO (09:11)
[2022-12-22] MEDS: Gabapentin 400 MG CAPSULE 800 MG PO ×3 (09:12→20:49)
--- NOTE | 2022-12-22 09:13 | P.PNPSI_ITS ---
Subjective Subjective Date of Service: 12/22/22 Reason For Visit: Paranoia, 17 weeks and 4 days Subjective Notes: Conditional Voluntary and 3 Day Healthcare Proxy: No Guardianship: No Medical Problems Affecting Mental Status: No Interim History: Patient was seen and reviewed in rounds. Records and plans were reviewed. She has been doing fine with less reaction about being here and denies any symptoms of paranoia, auditory or visual hallucinations. No SI upon inquiry. I did o rder vitamins and folic acid for her in light of the . I again encouraged her to use as little Ativan as she can get away with. Eating and sleeping adequately. No changes were made Review of Systems Review of Systems Yes all other systems are reviewed and are negative Mental Status Exam Mental Status Exam Narrative: In today's visit she is alert, oriented and pleasant. Normal speech. Good eye contact. Affect is appropriate and varied. No signs of anxiety, depression, sadness. No signs of psychosis. Cognitively is intact. No SI. Judgment is intact. Diagnostics Vital Signs (24Hr): Vital Signs - 24 hr 12/21/22 18:00 Temperature 97.7 F Pulse Rate 120 H Blood Pressure 122/56 L Pulse Oximetry 98 Oxygen Delivery Method Room Air Labs 12/21/22 07:32 Labs: Laboratory Results - last 48 hr 12/21/22 12/21/22 12/21/22 07:32 07:32 07:32 Sodium 133 L Potassium 4.0 Chloride 105 Carbon Dioxide 17 L Anion Gap 15 BUN 14 Creatinine 0.62 Estim Creat Clear Calc TNP Estimated GFR > 60 Fasting Glucose 103 H Estimat Average Glucose 77 Hemoglobin A1c % 4.3 Calcium 9.0 Magnesium 1.7 Total Bilirubin 0.6 AST 16 ALT 17 Alkaline Phosphatase 50 Total Protein 6.5 Albumin 3.6 Triglycerides 103 Cholesterol 147 LDL Cholesterol, Calc 63 HDL Cholesterol 64 Vitamin B12 273 Folate 13.0 TSH 1.31 Free T4 0.82 Medications Medications Current Medications Acetaminophen (Acetaminophen 325 Mg Tablet) 650 mg PO Q6H PRN PRN Reason: Headache/Pain Mild Scale (1-3) Last Admin: 12/22/22 07:01 Dose: 650 mg Al Hydroxide/Mg Hydroxide (Magnesium Hydrox/Alum Hydrox 30 Ml Oral.Susp) 30 ml PO Q6H PRN PRN Reason: Heartburn/Nausea Amoxicillin/Clavulanate Potassium (Amoxicillin/Potassium Clav 875 Mg Tablet) 875 mg PO Q12H ALDO Last Admin: 12/22/22 06:28 Dose: 875 mg Clonidine HCl (Clonidine Hcl 0.2 Mg Tablet) 0.2 mg PO TID PRN; Protocol PRN Reason: Anxiety Last Admin: 12/21/22 13:45 Dose: 0.2 mg Folic Acid (Folic Acid 1 Mg Tablet) 1 mg PO DAILY ALDO Gabapentin (Gabapentin 400 Mg Capsule) 800 mg PO TID ALDO Last Admin: 12/21/22 20:21 Dose: 800 mg Hydroxyzine HCl (Hydroxyzine Hcl 25 Mg Tablet) 25 mg PO Q6H PRN PRN Reason: Anxiety Last Admin: 12/21/22 20:23 Dose: 25 mg Lorazepam (Lorazepam 0.5 Mg Tablet) 0.5 mg PO BID PRN PRN Reason: Anxiety Last Admin: 12/22/22 07:02 Dose: 0.5 mg Magnesium Hydroxide (Milk Of Magnesia 30 Ml Oral.Susp) 30 ml PO DAILY PRN PRN Reason: Constipation Melatonin (Melatonin 3 Mg Tablet) 9 mg PO BEDTIME ALDO Last Admin: 12/21/22 20:23 Dose: 9 mg Trazodone HCl (Trazodone Hcl 50 Mg Tablet) 50 mg PO BEDTIME MRX1 PRN PRN Reason: Insomnia Last Admin: 12/21/22 20:23 Dose: 50 mg Allergies Allergies Allergy/AdvReac Type Severity Reaction Status Date / Time mushroom Allergy Intermediate Vomiting Verified 12/22/22 09:12 Assessment & Plan Assessment & Plan (1) Routine history and physical examination of adult: Status: Acute Code(s): Z00.00 - Encounter for general adult medical examination without abnormal findings (2) Dental abscess: Status: Acute Code(s): K04.7 - Periapical abscess without sinus Plan Pt is a 32-year-old female with a PMH significant for? at 17 weeks and 4 days, depression, and anxiety who is admitted to M3 psychiatry unit for inc reased anxiety and paranoid thoughts of persecution. Medical consult for admission H&P. ?Patient complains of right lower jaw swelling and pain that has been going on for the past 3-4 days. Mood disorder Plan as per Psychiatry Dental abscess/infection Patient afebrile, denies fever, chills Will treat with Augmentin 875 mg b.i.d. No indication for emergent draining of abscess, but should contact an outpatient dentist to set up appointment immediately after discharge Patient has no acute medical complaints at this time Should follow up outpatient with pitch gatherer Thank you for allowing us to participate in the care of this patient. Signing off at this time. Please let us know if there are any acute complaints or questions. 12/22: Continue current regimen and plans. Added vitamins Patient educated on: medication risk/benefits Reason for continued inpatient stay Substantial Risk for: med/psych decompensation Time Spent With Patient Time: Total time managing care of this patient today ____ minutes.
[2022-12-22] MEDS: hydrOXYzine HCL 25 MG TABLET PO ×2 (09:20→16:51)
[2022-12-22] MEDS: cloNIDine HCL 0.2 MG TABLET PO ×3 (09:31→20:50)
--- NOTE | 2022-12-22 10:35 | HO.PSYCHPN ---
Subjective Subjective Date of Service: 12/22/22 Reason For Visit: Paranoia, 17 weeks and 4 days Subjective Notes: Conditional Voluntary and 3 Day Healthcare Proxy: No Guardianship: No Medical Problems Affecting Mental Status: No Interim History: Patient was seen and reviewed in rounds. Records and plans were reviewed. She Diagnostics Vital Signs (24Hr): Vital Signs - 24 hr 12/21/22 18:00 12/22/22 06:00 Temperature 97.7 F 97.6 F Pulse Rate 120 H 82 Respiratory Rate 16 Blood Pressure 122/56 L 132/72 Pulse Oximetry 98 98 Oxygen Delivery Method Room Air Room Air Labs 12/21/22 07:32 Labs: Laboratory Results - last 48 hr 12/21/22 12/21/22 12/21/22 07:32 07:32 07:32 Sodium 133 L Potassium 4.0 Chloride 105 Carbon Dioxide 17 L Anion Gap 15 BUN 14 Creatinine 0.62 Estim Creat Clear Calc TNP Estimated GFR > 60 Fasting Glucose 103 H Estimat Average Glucose 77 Hemoglobin A1c % 4.3 Calcium 9.0 Magnesium 1.7 Total Bilirubin 0.6 AST 16 ALT 17 Alkaline Phosphatase 50 Total Protein 6.5 Albumin 3.6 Triglycerides 103 Cholesterol 147 LDL Cholesterol, Calc 63 HDL Cholesterol 64 Vitamin B12 273 Folate 13.0 TSH 1.31 Free T4 0.82 Medications Medications Current Medications Acetaminophen (Acetaminophen 325 Mg Tablet) 650 mg PO Q6H PRN PRN Reason: Headache/Pain Mild Scale (1-3) Last Admin: 12/22/22 07:01 Dose: 650 mg Al Hydroxide/Mg Hydroxide (Magnesium Hydrox/Alum Hydrox 30 Ml Oral.Susp) 30 ml PO Q6H PRN PRN Reason: Heartburn/Nausea Amoxicillin/Clavulanate Potassium (Amoxicillin/Potassium Clav 875 Mg Tablet) 875 mg PO Q12H [facility] Last Admin: 12/22/22 06:28 Dose: 875 mg Clonidine HCl (Clonidine Hcl 0.2 Mg Tablet) 0.2 mg PO TID PRN; Protocol PRN Reason: Anxiety Last Admin: 12/22/22 09:31 Dose: 0.2 mg Folic Acid (Folic Acid 1 Mg Tablet) 1 mg PO DAILY [facility] Last Admin: 12/22/22 09:11 Dose: 1 mg Gabapentin (Gabapentin 400 Mg Capsule) 800 mg PO TID [facility] Last Admin: 12/22/22 09:12 Dose: 800 mg Hydroxyzine HCl (Hydroxyzine Hcl 25 Mg Tablet) 25 mg PO Q6H PRN PRN Reason: Anxiety Last Admin: 12/22/22 09:20 Dose: 25 mg Lorazepam (Lorazepam 0.5 Mg Tablet) 0.5 mg PO BID PRN PRN Reason: Anxiety Last Admin: 12/22/22 07:02 Dose: 0.5 mg Magnesium Hydroxide (Milk Of Magnesia 30 Ml Oral.Susp) 30 ml PO DAILY PRN PRN Reason: Constipation Melatonin (Melatonin 3 Mg Tablet) 9 mg PO BEDTIME ALDO Last Admin: 12/21/22 20:23 Dose: 9 mg Multivitamins/Vitamin C (Multivitamin Tablet) 1 tab PO DAILY ALDO Trazodone HCl (Trazodone Hcl 50 Mg Tablet) 50 mg PO BEDTIME MRX1 PRN PRN Reason: Insomnia Last Admin: 12/21/22 20:23 Dose: 50 mg Allergies Allergies Allergy/AdvReac Type Severity Reaction Status Date / Time mushroom Allergy Intermediate Vomiting Verified 12/22/22 09:12 Assessment & Plan Assessment & Plan (1) Routine history and physical examination of adult: Status: Acute Code(s): Z00.00 - Encounter for general adult medical examination without abnormal findings (2) Dental abscess: Status: Acute Code(s): K04.7 - Periapical abscess without sinus Plan Pt is a 32-year-old female with a PMH significant for? at 17 weeks and 4 days, depression, and anxiety who is admitted to M3 psychiatry unit for increased anxiety and paranoid thoughts of persecution. Medical consult for admission H&P. ?Patient complains of right lower jaw swelling and pain that has been going on for the past 3-4 days. Mood disorder Plan as per Psychiatry Dental abscess/infection Patient afebrile, denies fever, chills Will treat with Augmentin 875 mg b.i.d. No indication for emergent draining of abscess, but should contact an outpatient dentist to set up appointment immediately after discharge Patient has no acute medical complaints at this time Should follow up outpatient with director trial Thank you for allowing us to participate in the care of this patient. Signing off at this time. Please let us know if there are any acute complaints or questions. 12/22: Continue current regimen and plans. Added vitamins Time Spent With Patient Time: Total time managing care of this patient today ____ minutes.
[2022-12-22] MEDS: Multivitamin TABLET 1 TAB PO (11:12)
[2022-12-22 16:45] VITALS: BP 135/72; PULSE 114
[2022-12-22 20:14] VITALS: BP 149/78; PULSE 127; RESP 18; TEMP 36.2
[2022-12-22 20:45] VITALS: BP 115/67; PULSE 94; RESP 18; TEMP 36.6
[2022-12-22] MEDS: Melatonin 3 MG TABLET 9 MG PO (20:50)
[2022-12-23] MEDS: hydrOXYzine HCL 25 MG TABLET PO ×2 (01:35→20:44)
[2022-12-23] MEDS: LORazepam 0.5 MG TABLET PO ×2 (09:38→14:33)
[2022-12-23] MEDS: Folic Acid 1 MG TABLET PO (09:38)
[2022-12-23] MEDS: Acetaminophen 325 MG TABLET 650 MG PO ×2 (09:38→18:44)
[2022-12-23] MEDS: Multivitamin TABLET 1 TAB PO (09:38)
[2022-12-23] MEDS: Amoxicillin/Potassium Clav 875 MG TABLET PO ×2 (09:38→20:44)
[2022-12-23] MEDS: Gabapentin 400 MG CAPSULE 800 MG PO ×3 (09:39→20:43)
[2022-12-23 09:43] VITALS: BP 102/58; PULSE 78; RESP 18; TEMP 36.2; O2SAT 98
--- NOTE | 2022-12-23 10:01 | PC.NURSE ---
pt states never a smoker.
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
[2022-12-23] MEDS: cloNIDine HCL 0.2 MG TABLET PO ×2 (12:05→18:05)
--- NOTE | 2022-12-23 14:35 | PC.NURSE ---
per doctor berrios, its ok to give ativan early prn at this time.
[2022-12-23 17:30] VITALS: BP 121/67; PULSE 87; TEMP 36.3
[2022-12-23] MEDS: Melatonin 3 MG TABLET 9 MG PO (20:46)
[2022-12-24] MEDS: cloNIDine HCL 0.2 MG TABLET PO ×3 (00:23→19:01)
[2022-12-24] MEDS: Acetaminophen 325 MG TABLET 650 MG PO ×4 (00:44→22:45)
[2022-12-24] MEDS: hydrOXYzine HCL 25 MG TABLET PO ×2 (06:42→22:46)
[2022-12-24 06:43] VITALS: BP 98/64; PULSE 86
[2022-12-24 08:00] VITALS: BP 88/51; PULSE 68; RESP 18; TEMP 36.2; O2SAT 100
[2022-12-24] MEDS: Multivitamin TABLET 1 TAB PO (09:29)
[2022-12-24] MEDS: Folic Acid 1 MG TABLET PO (09:29)
[2022-12-24] MEDS: Gabapentin 400 MG CAPSULE 800 MG PO ×3 (09:30→22:40)
[2022-12-24] MEDS: Amoxicillin/Potassium Clav 875 MG TABLET PO ×2 (09:30→22:40)
[2022-12-24] MEDS: LORazepam 0.5 MG TABLET PO ×2 (12:05→16:22)
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
[2022-12-24 16:51] VITALS: BP 101/51; PULSE 97; RESP 16; TEMP 36.2; O2SAT 100
[2022-12-24] MEDS: Benzocaine 20 % Oral Gel 9 GM TUBE 1 APPL MUCOUS MEM (18:59)
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
[2022-12-24] MEDS: Melatonin 3 MG TABLET 9 MG PO (22:41)
[2022-12-25] MEDS: cloNIDine HCL 0.2 MG TABLET PO (02:05)
[2022-12-25 08:30] VITALS: BP 94/65; PULSE 75; RESP 18; TEMP 36.3; O2SAT 100
[2022-12-25] MEDS: Folic Acid 1 MG TABLET PO (08:33)
[2022-12-25] MEDS: Amoxicillin/Potassium Clav 875 MG TABLET PO (08:33)
[2022-12-25] MEDS: Gabapentin 400 MG CAPSULE 800 MG PO (08:33)
[2022-12-25] MEDS: Multivitamin TABLET 1 TAB PO (08:33)
[2022-12-25] MEDS: LORazepam 0.5 MG TABLET PO ×2 (08:39→10:47)
== END 2022-12-25 11:00 | disposition home or self-care (01) | DRG 566 ==
PROVIDERS: Clinical Nurse Specialist Psychiatric/Mental Health, Adult; Admitting Provider Psychiatry & Neurology Psychiatry; Visit Provider Psychiatry & Neurology Psychiatry
DX: O99.342 Other mental disorders complicating pregnancy, second trimester (principal); F17.210 Nicotine dependence, cigarettes, uncomplicated; K04.7 Periapical abscess without sinus; F43.12 Post-traumatic stress disorder, chronic; O99.612 Diseases of the digestive system complicating pregnancy, second trimester; F41.1 Generalized anxiety disorder; Z71.6 Tobacco abuse counseling; Z3A.17 17 weeks gestation of pregnancy; O99.332 Smoking (tobacco) complicating pregnancy, second trimester; Z62.810 Personal history of physical and sexual abuse in childhood; Z79.899 Other long term (current) drug therapy
CPT/HCPCS: 36415; 80053; 80061; 82607; 82746; 83036; 83735; 84439; 84443; 93005

== ENCOUNTER 2022-12-20 20:11 | Outpatient (BNV) | payer OTHER, SELFPAY | END 2022-12-21 09:00 | PROVIDERS: Admitting Provider Psychiatry & Neurology Psychiatry; Visit Provider Internal Medicine Cardiovascular Disease | DX: F29 Unspecified psychosis not due to a substance or known physiological condition (principal) | CPT/HCPCS: 93010 ==

== ENCOUNTER → 2022-12-20 20:11 | Outpatient (BNV) | payer OTHER, SELFPAY | PROVIDERS: Admitting Provider Psychiatry & Neurology Psychiatry; Visit Provider Psychiatry & Neurology Psychiatry | DX: F41.1 Generalized anxiety disorder (principal); K04.7 Periapical abscess without sinus | CPT/HCPCS: 99231; 99232; 99233 ==

== ENCOUNTER → 2022-12-20 20:11 | Outpatient (BNV) | payer OTHER, SELFPAY | PROVIDERS: Admitting Provider Psychiatry & Neurology Psychiatry; Visit Provider Student in an Organized Health Care Education/Training Program | DX: K04.7 Periapical abscess without sinus (principal) | CPT/HCPCS: 99222 ==

== ENCOUNTER 2023-01-07 11:30 | Emergency (ER) | payer OTHER, SELFPAY ==
--- NOTE | 2023-01-07 12:19 | ED_ITS ---
HPI - General Adult General Chief complaint: General Medical Stated complaint: Medical clearance for program Time Seen by Provider: 01/07/23 12:31 Source: patient Mode of arrival: ambulatory Limitations: no limitations History of Present Illness HPI narrative: Marni is a 32 year old female with a history of alcohol and substance abuse presenting today for medical clearance to enter a program. She denies any his tory of medical problems. Program is [facility]. Related Data Previous Rx's Medication Instructions Recorded amoxicillin 875 mg-potassium 1 tab PO BID 8 days #16 tabs 12/24/22 clavulanate 125 mg tablet benzocaine 20 % mucosal gel 1 appl mucous membrane QID PRN 12/24/22 (Anbesol (benzocaine) Maximum right lower jaw tooth pain 30 days Strength) #9 grams gabapentin 800 mg tablet 800 mg PO TID 30 days #90 tabs 12/24/22 hydroxyzine HCl 25 mg tablet 25 mg PO Q6H PRN Anxiety 30 days 12/24/22 #90 tabs vitamin no.115-iron 29 1 tab PO DAILY 30 days #30 tabs 12/24/22 mg-folic acid 1 mg chewable tablet ( 19) clonidine HCl 0.2 mg tablet 0.2 mg PO Q4H PRN anxiety/insomnia 12/25/22 30 days #90 tabs lorazepam 0.5 mg tablet (Ativan) 0.5 mg PO BID PRN anxiety 30 days 12/25/22 #60 tabs Allergies Allergy/AdvReac Type Severity Reaction Status Date / Time mushroom Allergy Intermediate Vomiting Verified 12/22/22 09:12 Review of Systems Review of Systems: Constitutional : No Weight loss, No Fever, No Chills, No Fatigue, No Malaise ENT/Mouth : No sore throat, No Rhinorrhea Eyes: No Eye Pain, No Swelling, No Redness Cardiovascular : No Chest Pain, No SOB, No Dyspnea on Exertion, No Orthopnea, No Edema, No Palpitations Respiratory : No Cough, No Sputum, No Wheezing Gastrointestinal : No Nausea, No Vomiting, No Diarrhea, No Constipation, No abdominal Pain, No Hematochezia, No Melena Genitourinary : No Dysuria, No Urinary Frequency, No Hematuria, Musculoskeletal : No joint pain, No Myalgias, No Joint Swelling Skin : No Skin Lesions, No rash Neuro : No Weakness, No Numbness, No Dizziness, No Headache Psych : No Anxiety/Panic, No Depression All other systems reviewed and are negative Yes all other systems are reviewed and are negative [facility] Social History Social History Household Members: Unknown / Unable to assess Housing: Unknown / Unable to assess Unable to assess alcohol history related to: Unknown Patient Tobacco Use Status: Current everyday Tobacco user Tobacco use type: Cigarette Second Hand Smoke Exposure: No Substance Use Type: Marijuana Advance Directives: No service: No Sexual orientation: Straight/Heterosexual Physical Exam ED Vital Signs: Vital Signs - 24 hr 01/07/23 12:20 Temperature 98.4 F Pulse Rate 75 Respiratory Rate 17 Blood Pressure 91/57 L Pulse Oximetry 98 Oxygen Delivery Method Room Air BMI result Body Mass Index 22.5 VSS Appearance: Alert.? Oriented X3.? No acute distress.? Head: Normocephalic, atraumatic, no step-offs or deformities Eyes: Pupils equal, round and reactive to light.? CVS: Normal heart rate and rhythm.? Respiratory: No respiratory distress. Skin: Skin warm and dry.? Normal skin color.? Normal skin turgor.? Extremities: No lower extremity edema.? No calf ttp. 5/5 strength to bilateral upper and lower extremities Neuro: Oriented X 3.? No motor deficit.? No sensory deficit. CN 2-12 intact Medical Decision Making Medical Decision Making MDM Narrative: 32 year old female with no medical history presents for medical clearance for a dual diagnosis program. Exam benign. Normal physical exam. No SI or HI. Plan: BREWER, ethanol Differential Diagnosis Differential Diagnoses: The differential diagnosis associated with the presentation includes Normal physical exam. No SI or HI. Admission/Observation Consideration of admission/observation: Escalation of care including admission/observation considered No indication. Lab Data Labs: Lab Results 01/07/23 01/07/23 Range/Units 12:33 12:33 Urine Opiates Screen Not Detected (Not Detect) Urine Fentanyl Screen Not Detected (Not Detect) Ur Barbiturates Screen Not Detected (Not Detect) Ur Phencyclidine Scrn Not Detected (Not Detect) Ur Amphetamines Screen Not Detected (Not Detect) U Benzodiazepines Scrn Not Detected (Not Detect) Urine Cocaine Screen POSITIVE H (Not Detect) U Marijuana (THC) Screen POSITIVE H (Not Detect) Ethyl Alcohol < 10 mg/dL Tests considered The following testing was considered but not selected: No medical complaints. No need for labs or imaging. Core Measures AMI core measures followed: Yes Measure exclusions: not indicated Discharge Plan Discharge Clinical Impression: Normal physical exam Patient Disposition: Home, Self-Care Additional Instructions: Take your medications as prescribed. If you were prescribed antibiotics today, it is important that you take your medication to their entirety, do not skip any doses, do not finish them early. Follow-up with your primary care provider this week. Return to the emergency department with new or worsening symptoms. Such as fevers, chills, chest pain, shortness of breath, nausea, vomiting, dizziness, headache, vision changes, lethargy In case of emergency call 911 Urine toxicology positive for cocaine and marijuana. Ethanol level negative. Prescriptions: No Action hydroxyzine HCl 25 mg Tablet 25 mg PO Q6H PRN (Reason: Anxiety) 30 Days Qty: 90 1RF Anbesol (benzocaine) Max Str 20 % Gel 1 appl mucous membrane QID PRN (Reason: right lower jaw tooth pain) 30 Days Qty: 9 0RF Protocol: Apply to: Apply to: right lower tooth amoxicillin-pot clavulanate 875-125 mg tablet 1 tab PO BID 8 Days Qty: 16 0RF 19 29 mg iron- 1 mg tablet,chewable 1 tab PO DAILY 30 Days Qty: 30 1RF gabapentin 800 mg tablet 800 mg PO TID 30 Days Qty: 90 0RF clonidine HCl 0.2 mg tablet 0.2 mg PO Q4H PRN (Reason: anxiety/insomnia) 30 Days Qty: 90 1RF lorazepam [Ativan] 0.5 mg tablet 0.5 mg PO BID PRN (Reason: anxiety) 30 Days Qty: 60 0RF Referrals: Physician,Unknown J [Primary Care Provider] - 1 week Stand Alone Forms: Work/School Release
[2023-01-07 12:20] VITALS: BP 91/57; PULSE 75; RESP 17; TEMP 36.9; O2SAT 98; BMI 22.5
--- OUTSIDE RECORDS SUMMARY | 2023-01-07 12:33 | XMS_ITS | Continuity of Care Document ---
Author Name Unknown Organization [facility] Address [address] [place] [id number]- Care Team Providers Care Well Puller Name Role Phone Karri Zhao Primary Care Physician Encounter [facility] Date(s): 11/20/22 - 12/20/[address] [address]- Allergies, Adverse Reactions, Alerts No Known Allergies [...] 0 Refills, Maintenance, 06/28/22 17:07:00 EST, Tablet, [id number], Partial fill upon patient request if the prescription is fora schedule II opioid drug., 1 tablet By Mouth 2 sherly... Start Date: 06/28/22 Status: Ordered Adderall XR = 30 mg, By Mouth, 2 times a day, 0 Refills, Maintenance, 12/19/22 18:08:00 EDT, Partial fill upon patient request if the prescription is for a schedule II opioid drug. Start Date: 12/19/22 Status: Ordered gabapentin 800 mg oral tablet 1 tablet = 800 mg, By Mouth, 3 times a day, # 90 tablet, 0 Refills, Maintenance, 12/19/22 8:32:00 EDT, Tablet, Partial fill upon patient request if the prescription is for a schedule II opioid drug. Start Date: 12/19/22 Status: Ordered HydrOXYzine HCL Tablet = 25 mg, By Mouth, 4 times a day, 0 Refills, Maintenance, 12/19/22 17:54:00 EDT, Partial fill upon patient request if the prescription is for a schedule II opioid drug. Start Date: 12/19/22 Status: Ordered Melatonin = 10 mg, By Mouth, Daily at bedtime, 0 Refills, Maintenance, 12/19/22 17:42:00 EDT, Partial fill upon patient request if the prescription is for a schedule II opioid drug. Start Date: 12/19/22 Status: Ordered Problem List Condition Confirmation Course [...] Team Personnel Name: Miladis Redmond RN Position: [facility] RN Member Role: Primary Care Nurse Name: Karri Zhao Position: [facility] PCO Associate Professional Member Role: PCP Address: Address: [address] [place] [id number] Name: Lilia To RN Position: [facility] RN Member Role: Primary Care Nurse Name: Sonia Bose [place] Position: [facility] RN Member Role: Primary Care Nurse Name: Mechelle Spencer Position: [facility] RN Member Role: Primary Care Nurse Name: Alethea Mayo RN Position: [facility] RN Member Role: Primary Care Nurse Name: Francoise Cadena RN Position: [facility] RN Member Role: Primary Care Nurse Name: Ana Garcia RN Position: [facility] RN Member Role: Primary Care Nurse Name: Betty Roman RN Position: [facility] Nurse Member Role: Primary Care Nurse Name: Lisha Willett RN Position: S RN Member Role: Primary Care Nurse Name: Sandra Sosa RN Position: S RN Member Role: Primary Care Nurse Care Team Related Persons Name: SHONDAASTERN Address: home [address] [place], [place] Name: NABIL ALLEN Address: home [address] [place], [place] Name: SHIKHA HOLBROOK Address: [place] [address] Name: CLAUDE BLACK Address: Address: home [address] [place] [id number] Name: AMADOR BLACK Address: home [address] [place] [address] Name: CECILIA NELSON Address: home [address] [place], [place] Name: NONE, [place] Address: [place] [address]
--- OUTSIDE RECORDS SUMMARY | 2023-01-07 12:34 | XMS_ITS | Continuity of Care Document ---
Author Name Unknown Organization [facility] Address [address] [place] [address]- Care Team Providers Care Diagnostic Cardiac Sonographer Name Role Phone Karri Zhao Primary Care Physician Encounter [facility] Date(s): 12/19/22 - 12/20/[address] [address]- Discharge Disposition: Transfer to [facility] Facility Attending Physician: Umesh Tijerina DO Admitting Physician: [...] 0 Refills, Maintenance, 06/28/22 17:07:00 EST, [facility], [id number], Partial fill upon patient request if the prescription is fora schedule II opioid drug., 1 tablet By Mouth 2 sherly... Start Date: 06/28/22 Status: Ordered Adderall XR = 30 mg, By Mouth, 2 times a day, 0 Refills, Maintenance, 12/19/22 18:08:00 EDT, Partial fill upon patient request if the prescription is for a schedule II opioid drug. Start Date: 12/19/22 Status: Ordered gabapentin 400 mg oral capsule 800 mg, Capsule, By Mouth, 12/20/22 9:00:00 EDT Start Date: 12/20/22 Stop Date: 12/20/22 Status: Completed gabapentin 800 mg oral tablet 1 tablet [...] Range]: 1 2 3 Height 165 cm (12/20/22 11:55 AM) 165 cm (12/20/22 12:40 AM) 165 cm (12/19/22 4:29 PM) Weight 59.4 kg (12/20/22 12:40 AM) 59.4 kg (12/19/22 4:29 PM) 59.4 kg (12/19/22 8:29 AM) Oxygen Saturation [94-100 %] 98 % (12/20/22 6:18 PM) 100 % (12/20/22 11:55 AM) 100 % (12/20/22 12:40 AM) Pulse Rate [55-90 bpm] 104 bpm *H* (12/20/22 6:18 PM) 89 bpm (12/20/22 11:55 AM) 95 bpm *H* (12/20/22 12:40 AM) Body Mass Index [18.5-24.99 kg/m2] 21.82 kg/m2 (12/20/22 12:40 AM) 21.82 kg/m2 (12/19/22 4:29 PM) Blood Pressure [90-138/55-84 mm Hg] 119/73mm Hg (12/20/22 6:18 PM) 110/58mm Hg (12/20/22 11:55 AM) 106/75mm Hg (12/20/22 12:40 AM) Respiratory Rate [16-30 br/min] 18 br/min (12/20/22 6:18 PM) 18 br/min (12/20/22 11:55 AM) 16 br/min (12/20/22 10:01 AM) Temperature [96.8-100.4 DegF] 98.1 DegF (12/20/22 6:18 PM) 97.8 DegF (12/20/22 12:40 AM) 97.9 DegF (12/19/22 4:29 PM) Mode of Delivery (Oxygen) Room air (12/20/22 6:18 PM) Room air (12/20/22 11:55 AM) Room air (12/20/22 12:40 AM) Blood pressure sites Arm, left (12/20/22 12:40 AM) Arm, right (12/19/22 6:18 PM) Arm, left (12/19/22 4:29 PM) Temperature Route Temporal (12/20/22 6:18 PM) Oral (12/20/22 12:40 AM) Oral (12/19/22 4:29 PM) Dry Weight 59.4 kg (12/20/22 12:40 AM) 59.4 kg (12/19/22 4:29 PM) 59.4 kg (12/19/22 8:29 AM) Weight Obtained Via Standing scale (12/19/22 8:29 AM) Dry Weight Obtained Via Standing scale (12/19/22 8:29 AM) Social History Social History Type Response Tobacco Use: 4 or less cigar ettes(less than 1/4 pack)/day in last 30 days. Sex EKG study * Event Display: ECG 12-Lead Authored Date: Please click on pdf link to open report * Event Display: ECG 12-Lead Authored Date: [id number] Ventricular Rate: 76 BPM Atrial Rate: 76 BPM P-R Interval: 144 ms QRS Duration: 76 ms Q-T Interval: 400 ms QTC Calculation(Bazett): 450 ms P Huron: 59 degrees R Huron: 58 degrees T Huron: 45 degrees Normal sinus rhythm Incomplete right bundle branch block Possible Left atrial enlargement Borderline ECG When compared with ECG of 02-JUL-2022 00:29, No significant change was found Confirmed by KATERIN GALAVIZ MD ([id number]) on 12/20/2022 9:10:19 PM Trail: KATERIN GALAVIZ MD Patient Care team information Care Team Personnel Name: Miladis Redmond RN Position: [facility] RN Member Role: Primary Care Nurse Name: Karri Zhao Position: [facility] PCO Associate Professional Member Role: PCP Address: Address: [address] [place] [id number] Name: Lilia To RN Position: [facility] RN Member Role: Primary Care Nurse Name: Sonia Bose [place] Position: [facility] RN Member Role: Primary Care Nurse Name: Mechelle Spenecr Position: [facility] RN Member Role: Primary Care Nurse Name: Alethea Mayo RN Position: [facility] RN Member Role: Primary Care Nurse Name: Francoise Cadena RN Position: [facility] RN Member Role: Primary Care Nurse Name: Ana Garcia RN Position: [facility] RN Member Role: Primary Care Nurse Name: Betty Roman RN Position: [facility] AMB Nurse Member Role: Primary Care Nurse Name: Lisha Willett RN Position: [facility] RN Member Role: Primary Care Nurse Name: Sandra Sosa RN Position: [facility] RN Member Role: Primary Care Nurse Name: Umesh Tijerina DO Position: [facility] ED Medicine MD Member Role: Admitting Physician Address: Address: [address] [place] [id number]- Name: Gil Guidry DO Position: [facility] ED Medicine MD Member Role: ED Attending Physician Address: Address: [address] [place] [id number] Name: Ladonna Garza RN Position: S ED RN W/OE and Tasks Member Role: Patient Care Provider Care Team Related Persons Name: NABIL MERCHANT Address: home [address] [place], [place] Name: NABIL ALLEN Address: home [address] [place] [address] Name: SHIKHA HOLBROOK Address: [place] [address] Name: CLAUDE BLACK Address: Address: home [address] [place] [id number] Name: AMADOR BLACK Address: [address] [place] [address] Name: CECILIA NELSON Address: home [address] [place], [place] Name: NONE, GIVEN Address: [place] [address]
[2023-01-07 12:53] LABS: Amphetamine Screen Urine Not Detected (Not Detect); Barbiturates, Urine Not Detected (Not Detect); Benzodiazepines Screen Urine Not Detected (Not Detect); Cannabinoid Screen Urine POSITIVE (Not Detect); Cocaine Screen Urine POSITIVE (Not Detect); Fentanyl, urine Not Detected (Not Detect); Opiate Screen Urine Not Detected (Not Detect); Phencyclidine Screen Urine Not Detected (Not Detect)
[2023-01-07 12:54] LABS: Ethanol < 10 mg/dL
== END 2023-01-07 13:07 | disposition home or self-care (01) ==
PROVIDERS: Physician Assistant; Emergency Provider Emergency Medicine
DX: Z02.2 Encounter for examination for admission to residential institution (principal); F10.10 Alcohol abuse, uncomplicated; F19.10 Other psychoactive substance abuse, uncomplicated; F17.210 Nicotine dependence, cigarettes, uncomplicated; F41.1 Generalized anxiety disorder; Z79.899 Other long term (current) drug therapy
CPT/HCPCS: 36415; 80307; 99282; 99283